=== PATIENT | male | born 1995 | race Caucasian/White ===

== ENCOUNTER 2019-08-27 20:27 | Emergency (ER) | payer OTHER, SELFPAY ==
[2019-08-27 20:28] VITALS: BP 132/84; PULSE 122; RESP 14; TEMP 37; O2SAT 98; BMI 31.1
--- NOTE | 2019-08-27 21:07 | ED.DCSUM_ITS ---
- ER Visit Summary Date of Service: 08/27/19 Chief Complaint: Nausea, vomiting, diarrhea, abdominal pain History of Present Illness: The patient is a 24 M who presents with nausea, vomiting, diarrhea, and abdominal pain that began today. Patient states his abdominal pain is over the left lower quadrant. Patient describes the pain is sharp. Patient states the pain is worse with eating. Patient states nothing is help with the pain. Patient states his pain is been constant throughout the day. Patient admits to some nausea and vomiting today. Patient states she has been unable to keep anything down. Patient denies any hematemesis. Patient also admits to some diarrhea but denies any melena or hematochezia. Patient denies any urinary complaints. Physical Examination: Vital signs are stable. Patient is afebrile. Patient is in no acute distress. Oral mucosa is pink and moist. Neck is supple. Trachea is midline. There is no JVD. Heart was regular rate and rhythm. Lungs are clear and equal bilaterally. Abdomen is soft. Bowel sounds are normal. There is left lower quadrant tenderness. There is no rebound or guarding noted. Cranial nerves II through XII are intact. There are no focal motor or sensory deficits noted. Test Results: CBC and comprehensive metabolic profile were within normal limits. Lipase was normal. Emergency Department Course and Treatment: Patient was given Zofran and IV fluids here. Patient felt better on reevaluation. Patient was advised that this is most likely a viral intestinal infection. Patient was instructed to drink plenty of fluids. Patient was given a prescription for Zofran to take as needed for nausea and vomiting. Patient was instructed to follow-up with his primary care physician in 5 to 7 days. Patient understood and was agreeable with the plan. All questions were answered. Disposition: Discharge home Impression: Nausea vomiting and diarrhea This note was generated with [employer] dictation software. It may contain incorrect words, spelling, and punctuation that were not noted in review of the chart prior to signing ED Disposition - Plan for ED Patient: Disposition: Home or Assisted Living Diagnosis: Nausea vomiting and diarrhea Instructions: DIET, Vomiting or Diarrhea [6yr-Adult], VOMITING AND DIARRHEA, Nonspecific (Adult) Prescriptions: Ondansetron [Zofran Odt] 4 mg PO Q8H PRN PRN #10 tab PRN Reason: Nausea Prescription Printed Referrals: Hollis Cleary MD [Primary Care Provider] - 5-7 Days
[2019-08-27] MEDS: 0.9% Normal Saline 1,000 ML 1000 ML IV (21:23)
[2019-08-27] MEDS: Ondansetron 4 MG/2 ML Vial IV (21:23)
[2019-08-27 21:38] LABS: Absolute Lymphocyte Count 0.58 X10^3/uL (0.83-4.51); Absolute Neutrophil Count 5.8 X10^3/uL (2.0-7.7); Basophil# 0.03 X10^3/uL; Basophil% 0.4 % (0-1); Eosinophil# 0.03 X10^3/uL; Eosinophils% 0.4 % (0-5); Hematocrit 46.2 % (40-54); Hemoglobin 16.2 g/dL (13.0-16.5); Lymphocyte # 0.58 X10^3/ul (4.0); Lymphocyte % 8.3 % (19-41); Mean Corp Hgb Conc 35.1 g/dL (32-36); Mean Corpuscular Hgb 30.2 pg (27.0-32.0); Mean Platelet Vol. 8.6 fl (6.2-12.0); Monocyte% 7.2 % (0-10); NRBC Flagged by Analyzer 0 % (0-5); Neutrophil # 5.83 X10^3/uL (2.7-7.7); Neutrophil % 83.6 % (47-70); POSITIVE DIFFERENTIAL YES; Platelet Count 274 K/mm3 (150-450); RBC Distribution Width CV 12.5 % (11.6-14.6); Red Blood Count 5.37 M/mm3 (4.6-6.2)
[2019-08-27 21:40] LABS: Differential Indicated SCAN CRITERIA MET
[2019-08-27 21:59] LABS: ALB/GLOB Ratio 1.3 RATIO (0.9-2.4); AST(SGOT) 19 U/L (15-37); Alanine Aminotransfer ALT/SGPT 38 U/L (16-61); Albumin, Serum 4.4 g/dL (3.2-5.0); Alkaline Phosphatase 96 U/L (45-117); Anion Gap 7 (5-15); BUN 14 mg/dL (7-18); BUN/Creat Ratio 12.8 RATIO (10-20); Calcium,Total 8.9 mg/dL (8.5-10.1); Chloride 105 mmol/L (98-107); Creatinine, Serum 1.09 mg/dL (0.70-1.30); EST Glomerular Filtration Rate 89 mL/min (>60); Est Glom Filt Rate - Afr Amer 108 mL/min (>60); Estimated Creatinine Clearance 108.83 ml/min; Globulin 3.5 g/dL (2.2-4.2); Glucose 106 mg/dL (74-106); Lipase 79 U/L (73-393); Potassium 3.9 mmol/L (3.5-5.1); Protein, Total 7.9 g/dL (6.4-8.2); Sodium Level 137 mmol/L (136-145)
[2019-08-27 22:03] LABS: Differential Comment SCANNED
[2019-08-27 22:32] VITALS: BP 129/71; PULSE 60; RESP 16
== END 2019-08-27 22:32 | disposition home or self-care (01) ==
PROVIDERS: Emergency Provider Emergency Medicine; Family Provider Family Medicine; PCP Family Medicine
DX: R19.7 Diarrhea, unspecified (principal); R11.2 Nausea with vomiting, unspecified; F41.9 Anxiety disorder, unspecified; Z79.899 Other long term (current) drug therapy
CPT/HCPCS: 80053; 83690; 85025; 96361; 96374; 99283; J7030; J2405

== ENCOUNTER → 2021-05-08 07:45 | Outpatient (CLI) | payer BC, SELFPAY | PROVIDERS: PCP Family Medicine; Referring Provider Physician Assistant; Visit Provider Physician Assistant | DX: Z20.822 Contact with and (suspected) exposure to COVID-19 (principal) | CPT/HCPCS: 87635; U0005; U0003 ==

== ENCOUNTER 2025-04-07 20:31 | Emergency (ER) | payer OTHER, SELFPAY ==
[2025-04-07 20:32] VITALS: BP 153/90; PULSE 78; RESP 18; TEMP 36.4; O2SAT 97; BMI 38.1
--- OUTSIDE RECORDS SUMMARY | 2025-04-07 20:46 | XMS RPT_ITS | CCD ---
Author Organization [facility] Care Team Providers Care Public Address Technician Name Role Phone Emigdio Prince MD Primary Care Provider Emigdio Prince MD Primary Care Provider Lorraine PUBLICATIONS DISTRIBUTION CLERK.Marlen SALAS Unavailable Felix PUBLICATIONS DISTRIBUTION CLERK.Angel SALAS Unavailable [phone] EMIGDIO PRINCE Primary Care Unavailable EMIGDIO PRINCE Attending Unavailable EMIGDIO PRINCE Primary Care Unavailable EMIGDIO PRINCE Primary Care Unavailable EMIGDIO PRINCE Primary Care Unavailable EMIGDIO PRINCE Primary Care Unavailable EMIGDIO PRINCE Attending Unavailable MINDY JONES Attending Unavailable EMIGDIO PRINCE Primary Care Unavailable Marlen Peters APRN.CNP Unavailable Medications Current Medications Medication Drug Class(es) Dates Sig (Normalized) Sig (Original) aluminum chloride 200 mg/ml topical solution (20 sources) Start: 06-28-2023 End: 01-02-2025 aluminum chloride (DRYSOL) 20 % external solution Indications: Excessive sweating Apply to affected area daily at bedtime. As needed 35 mL 11 07/06/2024 Active Start: 03-28-2021 End: 11-23-2022 aluminum chloride (DRYSOL) 2 0 % external solution Indications: Excessive sweating Apply to affected area daily at bedtime. As needed 35 mL 5 05/27/2022 Active Comment on above: Apply to affected ar ea daily at bedtime. As needed amoxicillin 875 mg oral tablet (1 source) Penicillin-class Antibacterial Start: 08-01-20 End: 08-08-20 take 1 tablet by mouth twice daily amoxicillin (AMOXIL) 875 mg tablet Indications: Bacterial sinusitis Take 1 tablet by mouth two times a day for 7 days. 14 tablet 0 08/01/2023 08/08/2023 Active Comment on above: Take 1 tablet by daniela th two times a day for 7 days. azithromycin 250 mg oral tablet (1 source) Macrolide Antimicrobial Start: 09-04-20 End: 09-09-19 azithromycin (ZITHROMAX) 250 mg tablet Indications: Cough, unspecified type , Sore throat , Bronchitis Take 2 tablets by mouth as directed for 1 day, THEN 1 tablet as directed for 4 days. 6 tablet 09/04/2024 09/09/2024 Active benzonatate 100 mg oral capsule (1 source) Non-narcotic Antitussive Start: 12-11-19 take 1 capsule by mouth three times daily as needed for cough benzonatate (TESSALON PERLE) 100 mg capsule Indications: Lower respiratory infection Take 1 capsule by mouth three times a day as needed for cough for up to 12 doses. 12 capsule 12/10/2024 Active Start: 12-10-2024 take 1 capsule by [facility] three times daily as needed for cough benzonatate (TESSALON PERLE) 100 mg capsule Indications: Lower respiratory infection Take 1 capsule by mouth three times a day as needed for cough for up to 12 doses. 12 capsule 12/10/2024 Active citalopram 10 mg oral tablet (20 sources) Serotonin Reuptake Inhibitor Start: 06-28-2023 End: 07-06-2024 take 1 tablet by mouth once daily citalopram hydrobromide (CELEXA) 10 mg tablet Indications: Anxiety Take 1 tablet by mouth once daily. 90 tablet 3 07/06/2024 Active Start: 05-08-2021 End: 05-27-2022 take 1 tablet by mouth once daily citalopram hydrobromide (CELEXA) 10 mg tablet Indications: Anxiety Take 1 tablet by mouth once daily. 90 tablet 3 05/27/2022 Active Comment on above: Take 1 tablet by daniela once daily. TAKE 1 TABLET BY DANIELA TH EVERY DAY doxycycline monohydrate 100 mg oral capsule (1 source) Tetracycline-cla ss Drug Start: 12-10-2024 End: 12-15-2024 take 1 capsule by mouth twice daily doxycycline monohydrate (MONODOX) 100 mg capsule Indications: Lower respiratory infection Take 1 capsule by mouth two times a day for 5 days. 10 capsule 12/10/2024 12/15/2024 Active predniSONE 20 mg oral tablet (3 sources) Start: 11-08-2024 End: 11-13-2024 take 2 tablets by mouth once daily at mealtime predniSONE (DELTASONE) 20 mg tablet Indications: Sore throat Take 2 tablets by mouth once daily for 5 days. Take daily with food. 10 tablet 11/08/2024 11/13/2024 Active Start: 01-13-2024 End: 01-22-2024 predniSONE (DELTASONE) 10 mg tablet Indications: Dermatitis due to plants, including poison veronica, sumac, and oak Take 4 tabs daily for 3 days, then 2 tabs daily for 3 days, then 1 tab daily for 3 days with food. 21 tablet 0 01/13/2024 01/22/2024 Active Completed/Discontinued Medications Medication Drug Class(es) Dates Sig (Normalized) Sig (Original) ciclopirox 7.7 mg/ml topical cream (11 sources) Start: 06-28-2023 End: 07-06-2024 ciclopirox (LOPROX) 0.77 % cream Indications: Tinea cruris Apply to affected area two times a day. 30 g 1 06/28/2023 07/06/2024 Discontinued (Course of therapy completed) Comment on above: Apply to affected ar ea two times a day. terbinafine 250 mg oral tablet (1 source) Allylamine Antifungal Start: 06-04-2023 take 1 tablet by mouth once daily terbinafine HCl (LAMISIL) 250 mg tablet Indications: Jock itch Take 1 tablet by mouth once daily. 14 tablet 0 06/04/2023 Active Comment on above: Take 1 tablet by [facility] once daily. triamcinolone acetonide 0.25 mg/ml topical cream (2 sources) Corticosteroid Start: 12-15-2022 End: 06-04-2023 triamcinolone (KENALOG) 0.025 % cream Indications: Eczema, unspecified type Apply to affected area twice daily. 15 g 2 12/15/2022 06/04/2023 Discontinued (Course of therapy completed) Comment on above: Apply to affected ar ea twice daily. Problems Active Problems Problem Classification Problem Date Documented Da te Episodic/Chronic Allergic reactions (2 sources) Eczema; Translations: [Dermatitis, unspecified] Episodic Anxiety disorders (20 sources) Anxiety; Translations: [Anxiety disorder, unspecified] Onset: 01-01-2017 Chronic Chronic obstructive pulmonary disease and bronchiectasis (1 source) Bronchitis; Translations: [Bronchitis, not specified as acute or chronic] 09-04-2024 Episodic Gastrointestinal hemorrhage (1 source) Rectal hemorrhage; Translations: [Hemorrhage of anus and rectum] Episodic Immunizations and screening for infectious disease (2 sources) Vaccination needed; Translations: [Encounter for immunization] Episodic Mycoses (2 sources) Tinea cruris; Translations: [Tinea cruris] 06-04-2023 Episodic Other connective tissue disease (1 source) Pain of bilateral hands; Translations: [Pain in right hand] 07-06-2024 Episodic Other lower respiratory disease (1 source) Cough; Translations: [Cough, unspecified type] 09-04-2024 Episodic Other lower respiratory disease (1 source) Chest pain on breathing; Translations: [Chest pain on breathing] 09-04-2024 Episodic Other lower respiratory disease (1 source) Lower respiratory tract infection; Translations: [Unspecified acute lower respiratory infection] 12-10-2024 Episodic Other non-traumatic joint disorders (1 source) Bilateral wrist pain; Translations: [Pain in right wrist] 07-06-2024 Episodic Other skin disorders (2 sources) Sebaceous cyst of skin; Translations: [Sebaceous cyst] Episodic Other skin disorders (2 sources) Swelling; Translations: [Localized swelling, mass and lump, unspecified] 11-05-2023 Episodic Other upper respiratory infections (1 source) Bacterial sinusitis; Translations: [Chronic sinusitis, unspecified] 08-01-2023 Chronic Other upper respiratory infections (3 sources) Sore throat symptom; Translations: [Acute pharyngitis, unspecified] 09-04-2024 Episodic Screening and history of mental health and substance abuse codes (1 source) Patient encounter status; Translations: [Encounter for screening for depression] 07-06-2024 Episodic Past or Other Problems Problem Classification Problem Date Documented Da te Episodic/Chronic Other skin disorders (20 sources) Excessive sweating; Translations: [Generalized hyperhidrosis] Onset: 01-01-2017 01-01-2017 Episodic Results Test Name Value Interpretation Reference Range Facil ity CNOVon 12-10-2024 CNOV Office Visit (UCWSTR ) -------- RICKY MERCER ([id number]) 1995 M Date Time Provider Department 12/10/24 9:30 AM JOYCE CHAO WS During your visit today, we recorded the following information about you: Temperature Pulse Respiration Blood pressure 98.2 degrees 97/minute 18/minute 136/82 Weight 119.8 kg Joyce Chao, PUBLICATIONS DISTRIBUTION CLERK.QUALITY CONTROL REPRESENTATIVE 12/10/2024 9:45 AM Signed This note was created using NoteWriter. Subjective Ricky Mercer is a 29 year old male. HPI Patient complains of 6 days of sore throat, cough, and feeling lightheaded. He denies any recent fevers. Feels as though symptoms are worsening. Review of Systems As above Objective BP 136/82 Pulse 97 Temp 36.8 ?C (98.2 ?F) Resp 18 Wt 119.8 kg (264 lb 1.8 oz) SpO2 96% BMI 35.82 kg/m? Physical Exam Vitals and nursing note reviewed. Constitutional: General: He is not in acute distress. Appearance: Normal appearance. He is not ill-appearing. HENT: Head: Normocephalic. Mouth/Throat: Mouth: Mucous membranes are moist. Eyes: Conjunctiva/sclera: Conjunctivae normal. Cardiovascular: Rate and Rhythm: Normal rate and regular rhythm. Pulmonary: Effort: Pulmonary effort is normal. Breath sounds: Normal breath sounds. Musculoskeletal: General: Normal range of motion. Cervical back: Normal range of motion. Skin: General: Skin is warm and dry. Neurological: General: No focal deficit present. Mental Status: He is alert. Psychiatric: Mood and Affect: Mood normal. Behavior: Behavior normal. Assessment and Plan ASSESSMENT/PLAN: 1. Lower respiratory infection - ICD9: 519.8, ICD10: J22 Discussed viral versus bacterial etiology with patient. As patient notes 1 week of worsening cough there is concern for possible lower respiratory tract infection and patient will be treated accordingly. Did consider viral testing however as he has 6 days of symptoms there is no specific treatment indicated at this time and again with worsening symptoms patient opted to try a round of antibiotics. No chest x-ray available today - DOXYCYCLINE MONOHYDRATE 100 MG CAPSULE - BENZONATATE 100 MG CAPSULE Joyce Chao APRN.CNP Allergies As of Date: 12/10/2024 (No Known Allergies) Date Reviewed: 12/10/2024 Reviewed by: Joyce Chao APRN.QUALITY CONTROL REPRESENTATIVE - Fully Assessed Reason for Visit: Cough [28] Cmt: Chest congestion, ST, runny nose x6 days Primary Visit Diagnosis:Lower respiratory infection [J22] Order(s):doxycycline monohydrate (MONODOX) 100 mg capsuleTake 1 capsule by mouth two times a day for 5 days.Disp: 10 capsuleRfl: 0 benzonatate (TESSALON PERLE) 100 mg capsuleTake 1 capsule by mouth three times a day as needed for cough for up to 12 doses.Disp: 12 capsuleRfl: 0 Prescriptions as of 12/10/2024 - doxycycline monohydrate (MONODOX) 100 mg capsule Take 1 capsule by mouth two times a day for 5 days. - benzonatate (TESSALON PERLE) 100 mg capsule Take 1 capsule by mouth three times a day as needed for cough for up to 12 doses. - aluminum chloride (DRYSOL) 20 % external solution Apply to affected area daily at bedtime. As needed - citalopram hydrobromide (CELEXA) 10 mg tablet Take 1 tablet by mouth once daily. Problem List As Of Date 12/10/2024 Noted Resolved Excessive sweating [R61] 01/01/2017 Anxiety [F41.9] 01/01/2017 Prescriptions ordered this encounter Disp Refills Start End DOXYCYCLINE MONOHYDRATE 100 MG CAPSU* 10 c* 0 12/10/2024 12/15/2024 Route: ORAL Sig: Take 1 capsule by mouth two times a day for 5 days. BENZONATATE 100 MG CAPSULE 12 c* 0 12/10/2024 Route: ORAL Sig: Take 1 capsule by mouth three times a day as needed for cough for up to 12 doses. Encounter Status:Closed by JOYCE CHAO on 12/10/24 Normal [facility] CNOVon 11-08-2024 CNOV Office Visit (UCWSTR ) -------- RUSLANRICKY Mustapha ([id number]) 1995 M Date Time Provider Department 11/08/24 7:30 AM PRUDENCIO MONCADA [facility] During your visit today, we recorded the following information about you: Temperature Pulse Respiration Blood pressure 97.2 degrees 79/minute 18/minute 133/82 Weight 120.9 kg Prudencio Moncada APRN.QUALITY CONTROL REPRESENTATIVE 11/08/2024 8:00 AM Signed Subjective HPI HPI Ricky Luciano Ruslan is a 29 year old male who presents today for CC of st, loss of voice, fatigue, h/a. This started 2 days ago. Has tried otc medication for relief. Symptoms are worsened by nothing. Risk factors sick exposures at home. nonsmoker. .Patient presents with: Sore Throat: Fatigue x2 days, MARK, bodyaches PAST MEDICAL HISTORY Diagnosis Date Asthma Generalized anxiety disorder PAST SURGICAL HISTORY Procedure Laterality Date LIPOMA (SMALL) 12/10/2023 left side of head PAST SURGICAL HISTORY OF Right 2012, 2015 Right knee surgery ALLERGIES Patient has no known allergies. MEDICATIONS aluminum chloride (DRYSOL) 20 % external solution Apply to affected area daily at bedtime. As needed citalopram hydrobromide (CELEXA) 10 mg tablet Take 1 tablet by mouth once daily. predniSONE (DELTASONE) 20 mg tablet Take 2 tablets by mouth once daily for 5 days. Take daily with food. FAMILY HISTORY Problem Relation Age of Onset other (Anxiety) Mother other (Anxiety) Sister other (Anxiety) Brother Heart Maternal Grandmother Diabetes Maternal Grandfather Social History Tobacco Use Smoking status: Never Smokeless tobacco: Never Vaping Use Vaping status: Never Used Substance Use Topics Alcohol use: No Drug use: No Review of Systems Constitutional: Positive for chills and malaise/fatigue. Negative for fever. HENT: Positive for congestion and sore throat. Negative for ear pain and nosebleeds. Respiratory: Negative for cough, shortness of breath and wheezing. Musculoskeletal: Negative for neck pain. Skin: Negative for itching and rash. Neurological: Positive for headaches. Objective Blood pressure 133/82, pulse 79, temperature 36.2 ?C (97.2 ?F), resp. rate 18, weight 120.9 kg (266 lb 8.6 oz), SpO2 96%. Physical Exam Constitutional: General: He is not in acute distress. Appearance: He is not toxic-appearing or diaphoretic. HENT: Head: Normocephalic and atraumatic. Right Ear: Hearing, tympanic membrane, ear canal and external ear normal. Left Ear: Hearing, tympanic membrane, ear canal and external ear normal. Nose: Nose normal. Mouth/Throat: Pharynx: Uvula midline. No pharyngeal swelling, oropharyngeal exudate, posterior oropharyngeal erythema or uvula swelling. Eyes: General: Lids are normal. No scleral icterus. Right eye: No discharge. Left eye: No discharge. Conjunctiva/sclera: Conjunctivae normal. Pupils: Pupils are equal, round, and reactive to light. Neck: Trachea: Trachea normal. Cardiovascular: Rate and Rhythm: Normal rate and regular rhythm. Heart sounds: Normal heart sounds. Pulmonary: Effort: Pulmonary effort is normal. Breath sounds: Normal breath sounds. Musculoskeletal: Cervical back: Normal range of motion and neck supple. Lymphadenopathy: Cervical: No cervical adenopathy. Right cervical: No superficial cervical adenopathy. Left cervical: No superficial cervical adenopathy. Skin: Findings: No rash. Neurological: Mental Status: He is alert and oriented to person, place, and time. ASSESSMENT/PLAN: 1. Sore throat - ICD9: 462, ICD10: J02.9 (primary diagnosis) Negative, viral - STREP A MOLECULAR (POC) - PREDNISONE 20 MG TABLET 2. URI, acute - ICD9: 465.9, ICD10: J06.9 - Discussed viral etiology and rationale for treatment. - Symptomatic treatment with prn analgesia - Supportive care with fluids and rest - Follow up in 3-5 days if symptoms persist or sooner if worsening of symptoms States will not likely want paxlovid if positive for covid. - COVID AND INFLUENZA A/B AND RSV PCR, ROUTINE Prudencio Antwan, PUBLICATIONS DISTRIBUTION CLERK.QUALITY CONTROL REPRESENTATIVE Allergies As of Date: 11/08/2024 (No Known Allergies) Date Reviewed: 11/08/2024 Reviewed by: Angelic Kasper MA - Fully Assessed Reason for Visit: Sore Throat [200] Cmt: Fatigue x2 days, MARK, bodyaches Primary Visit Diagnosis:Sore throat [J02.9] Other Visit Diagnosis:URI, acute [J06.9] Order(s):STREP A MOLECULAR (POC) [[id number]] Order #: [id number]. #:[id number] predniSONE (DELTASONE) 20 mg tabletTake 2 tablets by mouth once daily for 5 days. Take daily with food.Disp: 10 tabletRfl: 0 COVID AND INFLUENZA A/B AND RSV PCR, ROUTINE [SQCVFLRS] Order #: [id number]. #:[id number] Prescriptions as of 11/08/2024 - predniSONE (DELTASONE) 20 mg tablet Take 2 tablets by mouth once daily for 5 days. Take daily with food. - aluminum chloride (DRYSOL) 20 % external solution Apply to affected area daily at (more content not included)... Normal [facility] STREP A MOLECULAR (POC)on Procedural Control Valid [facility] Strep A (POCT) Negative Negative [facility] CNOVon 09-04-2024 CNOV Office Visit (FAMPWS ) -------- RICKY MERCER ([id number]) 1995 M Date Time Provider Department 09/04/24 5:40 PM EMIGDIO PRINCE [facility] During your visit today, we recorded the following information about you: Pulse Respiration Blood pressure Weight 84/minute 16/minute 122/82 119.6 kg Emigdio Prince MD 09/04/2024 7:44 PM Signed Chief Complaint Patient presents with: Cough HPI Ricky Mercer is a 29 year old male who presents here today for an acute visit. Pt here today for ongoing issues with a cough and slight sore throat. Pt reports that two nights ago he had two bouts of vomiting and this has since cleared up. Denies no other GI symptoms prior to this other than some slight upset stomach prior to vomiting. No one else at home sick with GI symptoms. Since vomiting two nights ago he's started having centralized chest pain with coughing or taking a deep breath. Pain described as a dull and stabbing type pain. Feels he can't take a deep breath and at times can't catch his breath. Denies any dysphagia or pain with swallowing. Reports daughter and were both sick recently. Daughter is in daycare and works in a School. Past medical history, appointments, medications, allergies reviewed. Previous Medical History PAST MEDICAL HISTORY Diagnosis Date Asthma Generalized anxiety disorder Previous Surgical History PAST SURGICAL HISTORY Procedure Laterality Date LIPOMA (SMALL) 12/10/2023 left side of head PAST SURGICAL HISTORY OF Right 2012, 2014 Right knee surgery Family History FAMILY HISTORY Problem Relation Age of Onset other (Anxiety) Mother other (Anxiety) Sister other (Anxiety) Brother Heart Maternal Grandmother Diabetes Maternal Grandfather Patient Allergies ALLERGIES No Known Allergies Current Medications Current Outpatient Medications on File Prior to Visit Medication Sig aluminum chloride (DRYSOL) 20 % external solution Apply to affected area daily at bedtime. As needed citalopram hydrobromide (CELEXA) 10 mg tablet Take 1 tablet by mouth once daily. No current facility-administered medications on file prior to visit. Social History Social History Tobacco Use Smoking status: Never Smokeless tobacco: Never Vaping Use Vaping status: Never Used Substance Use Topics Alcohol use: No Drug use: No EXAM: BP 122/82 (BP Site: Left Arm, BP Position: Sitting, BP Cuff Size: Large Adult) Pulse 84 Resp 16 Wt 119.6 kg (263 lb 10.7 oz) BMI 35.76 kg/m? General Appearance: Well appearing, alert, in no acute distress, well-hydrated, well nourished. and Obese. Oropharynx: Lips, mucosa, and tongue normal, teeth and gums normal. Oropharynx slight erythema noted on exam. Lungs: Lungs clear to auscultation. No wheezing, rhonchi, rales.. Heart: RRR without murmur, gallop, or rubs. No ectopy. Health Maintenance List Influenza Vaccine(1) due on 03/05/2025 Hepatitis C Screening due on 07/06/2025 HIV Screening due on 07/06/2025 Covid-19 Vaccine( - season) due on 07/06/2025 Depression Screening due on 07/06/2025 DTaP,Tdap,Td Vaccine(8 - Td or Tdap) due on 03/28/2031 Hepatitis B Vaccine Completed HPV Vaccine Addressed Data reviewed None ASSESSMENT/PLAN: 1. Cough, unspecified type - ICD9: 786.2, ICD10: R05.9 (primary diagnosis) - Cont OTC treatment - Start Zpak 2. Sore throat - ICD9: 462, ICD10: J02.9 - Start Zpak 3. Chest pain on breathing - ICD9: 786.52, ICD10: R07.1 - Bronchitis 4. Bronchitis - ICD9: 490, ICD10: J40 - Start Zpak Start Zpak, update office if not improving. I agree with the Chief Complaint, ROS, and Past Histories independently gathered by the clinical sales support engineer and the remaining scribed note accurately describes my personal service to the patient. Medical Decision Making: Problems: Low: Acute, uncomplicated illness or injury Risk: Moderate: Drug management Medical Decision Making Level: 3 - Low Emigdio Prince MD The documentation for this note was completed by Charu Chang MA acting as scribe for Emigdio Prince MD. September 04, 2024 5:41 PM. ZOHRA Jerez Rilee, MA 09/04/2024 5:42 PM Signed Update office via Frilp if not improving. Allergies As of Date: 09/04/2024 (No Known Allergies) Date Reviewed: 09/04/2024 Reviewed by: Charu Chang MA - Fully Assessed Reason for Visit: Cough [28] Primary Visit Diagnosis:Cough, unspecified type [R05.9] Other Visit Diagnoses:Sore throat [J02.9] Chest pain on breathing [R07.1] Bronchitis [J40] Order(s):azithromycin (ZITHROMAX) 250 mg tabletTake 2 tablets by mouth as directed for 1 day, THEN 1 tablet as directed for 4 days.Disp: 6 tabletRfl: 0 Prescriptions as of 09/04/2024 - azithromycin (ZITHROMAX) 250 mg tablet Take 2 tablets by mouth as directed for 1 day, THEN 1 tablet as directed for 4 days. - alu (more content not included)... Normal [facility] CNOVon 07-06-2024 CNOV Office Visit (FAMPWS ) -------- RUSLANRICKY Luciano ([id number]) 1995 M Date Time Provider Department 07/06/24 3:00 [facility] your visit today, we recorded the following information about you: Pulse Respiration Blood pressure Weight 84/minute 16/minute 126/74 121.9 kg Height 1.829 m Emigdio Prince MD 07/06/2024 4:00 PM Signed Chief Complaint Patient presents with: Physical HPI Ricky Mercer is a 29 year old male who presents here today for physical. 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 Declined flu, covid vaccines, Hep C and HIV screening. No bowel, Gi, or urinary issues. No chest pains, dizziness, or SOB. NEAL/Depression: Taking Celexa 10 mg daily. Feels this is working well for him. No problems or side effects form the Celexa. No SI/HI. Sleeps well at night. No snoring or any sx of Sleep apnea. Uses Drysol solution at bedtime prn for excessive sweating. Tries to watch diet, fruits and vegetables with meals. Watching carbs. Does not drink pop. He now drinks sweet tea but needs to switch to unsweetened. Low to moderate exercise, chasing toddler. No regular exercise regimen. He did work out more before the baby but now has trouble finding the time. C/o Bishop hand and wrist pain that has been an issues off and on for several years but over the last few months has become more consistent. No swelling of the hands or wrist. Pain is dull ache when not using and then sharp shooting with use. He does some stretches which helps and if pain is really bad will use ice occ. Has not taken anything for pain. 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 He has been in the workshop a little more but nothing to excessive. Does not bother him at night. Right hand dominant. Past medical history, appointments, medications, allergies reviewed. Previous Medical History PAST MEDICAL HISTORY Diagnosis Date Asthma Generalized anxiety disorder Previous Surgical History PAST SURGICAL HISTORY Procedure Laterality Date LIPOMA (SMALL) 12/10/2023 left side of head PAST SURGICAL HISTORY OF Right 2012, 2014 Right knee surgery Family History FAMILY HISTORY Problem Relation Age of Onset other (Anxiety) Mother other (Anxiety) Sister other (Anxiety) Brother Heart Maternal Grandmother Diabetes Maternal Grandfather Patient Allergies ALLERGIES No Known Allergies Current Medications Current Outpatient Medications on File Prior to Visit Medication Sig aluminum chloride (DRYSOL) 20 % external solution Apply to affected area daily at bedtime. As needed citalopram hydrobromide (CELEXA) 10 mg tablet Take 1 tablet by mouth once daily. ciclopirox (LOPROX) 0.77 % cream Apply to affected area two times a day. No current facility-administered medications on file prior to visit. Social History Social History Tobacco Use Smoking status: Never Smokeless tobacco: Never Vaping Use Vaping status: Never Used Substance Use Topics Alcohol use: No Drug use: No EXAM: BP 126/74 Pulse 84 Resp 16 Ht 182.9 cm (6') Wt 121.9 kg (268 lb 11.9 oz) BMI 36.45 kg/m? General Appearance: Well appearing, alert, in no acute distress, well-hydrated, well nourished. and Overweight. Lungs: Lungs clear to auscultation. No wheezing, rhonchi, rales.. Heart: RRR without murmur, gallop, or rubs. No ectopy. Abdomen: Normal abdominal exam, Abdomen soft, non-tender. Bowel sounds normal. No masses, organomegaly. Hands: Normal exam, no swelling or tenderness; reports pain across dorsum of hands Health Maintenance List Depression Screening Never done Influenza Vaccine(1) due on 03/05/2025 Hepatitis C Screening due on 07/06/2025 HIV Screening due on 07/06/2025 Covid-19 Vaccine( season) due on 07/06/2025 DTaP,Tdap,Td Vaccine(8 - Td or Tdap) due on 03/28/2031 Hepatitis B Vaccine Completed HPV Vaccine Addressed Data reviewed None ASSESSMENT/PLAN: 1. Wellness examination - ICD9: V70.0, ICD10: Z00.00 (primary diagnosis) - Counseled on healthy diet and regular exercise - Discussed need for and benefit of weight loss. BMI 36.45 kg/(m2) - Follow up for annual exam in one year 2. Excessive sweating - ICD9: 780.8, ICD10: R61 Stable Continue current medications. - DRYSOL DAB-O-MATIC 20 % TOPICAL SOLUTION 3. Anxiety - ICD9: 300.00, ICD10: F41.9 Stable Continue current medications. - CITALOPRAM 10 MG TABLET 4. Screening for depression - ICD9: V79.0, ICD10: Z13.31 - DEPRESSION SCREENING 5. Pain in both hands - ICD9: 729.5, ICD10: M79.641, M79.642 Over use Continue with stretches May use heat 6. Pain in both wrists - ICD9: 719.43, ICD10: M25.531, M25.532 Over use Continue with stretches May use heat Follow up in 1 year or sooner if needed. I agree with (more content not included)... Normal [facility] CNOVon 01-13-2024 CNOV Office Visit (UCWSTR ) -------- RICKY MERCER ([id number]) 1995 M Date Time Provider Department 01/13/24 7:45 AM KAY DAVENPORT [facility] During your visit today, we recorded the following information about you: Temperature Pulse Respiration Blood pressure 97.6 degrees 78/minute 18/minute 136/77 Weight 122 kg Kay Davenport APRN.QUALITY CONTROL REPRESENTATIVE 01/13/2024 8:06 AM Signed Subjective Rash Pertinent negatives include no fever. Ricky Mercer is a 28 year old male who presents with a rash on bilateral arms. Has been present for 10 days. He has been using OTC hydrocortisone cream without relief. Denies fever or chills. Rash it itchy and he is getting new areas of rash. He denies pain. Review of Systems Constitutional: Negative for chills and fever. Respiratory: Negative. Cardiovascular: Negative. Musculoskeletal: Negative for myalgias. Skin: Positive for itching and rash. BP 136/77 Pulse 78 Temp 36.4 ?C (97.6 ?F) Resp 18 Wt 122 kg (268 lb 15.4 oz) SpO2 97% BMI 38.59 kg/m? PAST MEDICAL HISTORY Diagnosis Date Asthma Generalized anxiety disorder PAST SURGICAL HISTORY Procedure Laterality Date LIPOMA (SMALL) 12/10/2023 left side of head PAST SURGICAL HISTORY OF Right 2012, 2014 Right knee surgery ALLERGIES Patient has no known allergies. MEDICATIONS predniSONE (DELTASONE) 10 mg tablet Take 4 tabs daily for 3 days, then 2 tabs daily for 3 days, then 1 tab daily for 3 days with food. ciclopirox (LOPROX) 0.77 % cream Apply to affected area two times a day. citalopram hydrobromide (CELEXA) 10 mg tablet Take 1 tablet by mouth once daily. aluminum chloride (DRYSOL) 20 % external solution Apply to affected area daily at bedtime. As needed FAMILY HISTORY Problem Relation Age of Onset other (Anxiety) Mother other (Anxiety) Sister other (Anxiety) Brother Heart Maternal Grandmother Diabetes Maternal Grandfather Social History Tobacco Use Smoking status: Never Smokeless tobacco: Never Vaping Use Vaping Use: Never used Substance Use Topics Alcohol use: No Drug use: No Objective Physical Exam Vitals and nursing note reviewed. Constitutional: Appearance: Normal appearance. Cardiovascular: Rate and Rhythm: Normal rate and regular rhythm. Heart sounds: Normal heart sounds. Pulmonary: Effort: Pulmonary effort is normal. No respiratory distress. Breath sounds: Normal breath sounds. No wheezing or rales. Skin: General: Skin is warm and dry. Findings: Erythema and rash present. Neurological: Mental Status: He is alert. ASSESSMENT/PLAN: 1. Dermatitis due to plants, including poison veronica, sumac, and oak - ICD9: 692.6, ICD10: L25.5 - Oral Steriod tx -Prednisone taper - discussed skin care of rash - follow up if symptoms persist or worsen. - PREDNISONE 10 MG TABLET - Follow-up with your PCP in 3-5 days if symptoms have not improved or sooner if symptoms worsen - Discussed red flags and need for immediate medical evaluation if any occur. - Discussed supportive care treatment with fluids, rest and analgesia. - Discussed expected course of illness FRANCI Boo Kathy, APRN.CNP 01/13/2024 8:06 AM Signed ASSESSMENT/PLAN: 1. Dermatitis due to plants, including poison veronica, sumac, and oak - ICD9: 692.6, ICD10: L25.5 - Oral Steriod tx -Prednisone taper - discussed skin care of rash - follow up if symptoms persist or worsen. - PREDNISONE 10 MG TABLET - Follow-up with your PCP in 3-5 days if symptoms have not improved or sooner if symptoms worsen - Discussed red flags and need for immediate medical evaluation if any occur. - Discussed supportive care treatment with fluids, rest and analgesia. - Discussed expected course of illness Kay Davenport APRN.CNP [facility] PATIENT INFO POISON VERONICA INTRODUCTION When the skin comes in direct contact with an irritating or allergy-causing substance, contact dermatitis can develop. Exposure to poison veronica, poison oak, and poison sumac cause more cases of allergic contact dermatitis than all other plant families combined. People of all ethnicities and skin types are at risk for developing poison veronica dermatitis. The severity of the reaction tends to decrease with age, especially in people who have had mild reactions in the past. People in occupations such as firefighting, forestry, and farming are at a higher risk of poison veronica dermatitis because of repeated exposure to toxic plants. POISON VERONICA CAUSES Poison veronica, poison oak, and poison sumac plants all contain a compound called urushiol, which is a light, colorless oil that is found on the fruit, leaves, stem, root, and sap of the plant. When urushiol is exposed to air, it turns brown and the plant leaves develop small black spots. There are several ways that you can be exposed to urushiol: By touching the sap o (more content not included)... Normal [facility] CNOVon 01-03-2024 CNOV Office Visit (GENSWS ) -------- RUSLANRICKY ([id number]) 1995 M Date Time Provider Department 01/03/24 2:30 PM MINDY JONES During your visit today, we recorded the following information about you: Temperature Pulse Blood pressure Weight 97.1 degrees 91/minute 128/88 120.7 kg Height 1.778 m Mindy Jones MD 01/04/2024 7:48 AM Signed FOLLOW UP VISIT NAME: Ricky Mercer CLINIC NO.: [id number] DATE OF SERVICE: 01/03/2024 : 1995 REFERRING PHYSICIAN: Emigdio Prince MD Ricky is status post excision of posterior left ear lesion done on 12/10/2023 Pathology reveals: FINAL DIAGNOSIS Soft tissue, posterior left ear, excision: - Lipoma. Patient denies any problems VITALS: Blood pressure 128/88, pulse 91, temperature 36.2 ?C (97.1 ?F), height 177.8 cm (5' 10), weight 120.7 kg (266 lb), SpO2 97%. On examination, wound is well healed with no evidence of infection Assessment IMPRESSION: status post excision of lipoma PLAN: Patient is instructed to make an appointment to return to clinic if any worsening signs/symptoms. Patient will return to his PCP for medical care. Patient acknowledges above. Diagnoses: (Z98.890) Status post skin and subcutaneous tissue surgery (primary encounter diagnosis) I have confirmed and edited as necessary, the PFSH and ROS obtained by others. ___ Mindy Jones MD Allergies As of Date: 01/03/2024 (No Known Allergies) Date Reviewed: 01/03/2024 Reviewed by: Logan Washington LPN - Fully Assessed Reason for Visit: Follow Up [171] Cmt: Scalp lesion Primary Visit Diagnosis:Status post skin and subcutaneous tissue surgery [Z98.890] Prescriptions as of 01/04/2024 - ciclopirox (LOPROX) 0.77 % cream Apply to affected area two times a day. - citalopram hydrobromide (CELEXA) 10 mg tablet Take 1 tablet by mouth once daily. - aluminum chloride (DRYSOL) 20 % external solution Apply to affected area daily at bedtime. As needed Meds Comments as of 01/09/2020: Pharmacy - [facility] Problem List As Of Date 01/03/2024 Noted Resolved Excessive sweating [R61] 01/01/2017 Anxiety [F41.9] 01/01/2017 Disposition: Return if symptoms worsen or fail to improve. Follow-up and Disposition History for Encounter Date Provider Department [id number] Encounter Status:Closed by MINDY JONES on 01/04/24 Normal [facility] COVID 19, [facility](RT COLLECT )on 05-09-2021 SARS-CoV-2 (COVID-19) RNA [place]+probe Ql (Unsp spec) Not detected Normal Not Detect [facility] Comment on above: Order Comment: Reason for Exam: exposed Result Comment: Norm al Reference Range: Not Detected Method:(RT-PCR) real-time reverse transcriptase PCR Luminex LetsCram Instrument *The Food and Drug Administration (FDA) has issued an Emergency Use Authorization (EAU) for the LetsCram SARS-CoV-2 Assay for the rapid detection of the virus that causes COVID-19. This test has been validated, but the FDAs independent review of this validation is pending. *Negative results do not preclude infection and should not be used as the sole basis for treatment or patient management. Optimum specimen types and timing for peak viral levels during infections caused by SARS-CoV-2 have not been determined. Collection of multiple specimens from the same patient may be necessary to detect the virus. The possibility of a false negative result should be considered if the patient has clinical presentation or has had recent exposure. Performed By: #### L [phone] #### [facility] [address] [place], [place], [address] Urgent Care Visit Reporton 0 05-08-2021 Urgent Care Visit Report [facility] [address] [place] [address] OFFICE VISIT Date of Service: 05/08/21 MR#: [id number] Acct: [id number] Name: RICKY MERCER Rep #: [id number] : 1995 Provider: ROBERTO juárez Age/Sex: 26/M Location: [facility] Status: Signed Intake Vital Signs 05/08/21 17:05 BP 128/78 H Blood Pressure Location Lt brachial Position Sitting Respiration 18 Pulse 86 Pulse Source Monitor Temp 97.4 F L Temp Source Temporal Pulse Oximetry (%) 98 Oxygen Delivery Method room air Intake Visit Reasons: COVID TEST/EXPOSED Allergies No Known Allergies Allergy (Verified 08/27/19 20:31) PFSH Social History Smoking Status: Never smoker HPI HPI Details: RICKY MERCER, is a 26 M who presents to the office today for covid19 screening due to exposed to someone tat her work who was diagnosed with COVID19. and patient both asymptomatic. ROS Const Constitutional: No other (as above) Exam Const General: cooperative, healthy appearing, comfortable and no acute distress Nutritional Appearance: average body habitus and well nourished Orientation: alert, awake and oriented x3 HENMT Head: normal to inspection Ears: hearing grossly normal bilaterally and external ears normal Nose: external nose normal Face and sinus: normal facial exam, sinuses nontender and face symmetric Mouth: oral mucosae normal, lip normal, tongue normal and oropharynx normal Teeth and gingiva: dentition normal and gingiva normal Throat: posterior oropharynx normal, tonsils normal, uvula midline and no postnasal drainage Eyes General: appearance normal, both eyes and all related structures Neck Neck: normal visual inspection, full ROM, no lymphadenopathy, no meningeal signs and supple Neck mass: No Thyroid: thyroid normal Lymphatic: no lymphadenopathy noted Chest Chest palpation inspection: normal inspection of the chest Resp Effort Inspection: normal respiratory effort, able to speak in complete sentences, symmetric chest movement and no cough Auscultation: Bilateral: Clear to Auscultation Cardio Palpation: normal PMI Rate: regular rate Rhythm: regular rhythm Heart Sounds: S1 normal, S2 normal, no gallops, no murmurs and no rubs Pulses: radial pulses present GI Inspection: normal to inspection Palpation: soft and no hepatosplenomegaly Skin General: no rashes or lesions noted Neuro General: patient alert, patient awake, patient oriented x3 and gait normal Cognition: normal cognition Speech: speech normal Gait: normal gait Motor: muscle tone normal throughout Sensory Exam: no sensory deficits noted Extrem General: normal to inspection Psych Appearance: grossly normal Mental Status: mental status grossly normal Mood: congruent mood Affect: normal affect Speech and Movement: speech and movement normal Attitude: cooperative Thought Process: normal Thought Content: normal Judgment: judgment good Coding Level of Care Code Off vis,new,level 3 Diagnoses Exposure to COVID-19 virus Z20.822 Assessment and Plan Assessment and Plan (1) Exposure to COVID-19 virus: Status: Acute Orders: Orders: COVID 19, PCR [facility](RT COLLECT) Today Plan - Albert MEJIA PA: Nasopharyngeal swab obtained today for send out for COVID-19 screening. Patient aware we will contact them when results are available. Follow-up with the now clinic on an as-needed basis only. Patient states acknowledging understanding all the above. This note was generated with [employer] dictation software. It may contain incorrect words, spelling, and punctuation that were not noted in checking the note before signing. 05/08/21 1852 Date Albert MEJIA Cosigner Signature: Date (if applicable) CC: Normal [facility] Vital Signs Date Time Vital Sign Value Performing Clinician Scottie rogers 12-10-2024 09:24-0400 Body mass index (BMI) [Ratio] 35.82 kg/m2 Joyce Chao APRN.CNP Work Phone: [facility] 12-10-2024 09:24-0400 Body temperature 98.2 [degF] Joyce Moomaw PUBLICATIONS DISTRIBUTION CLERK.QUALITY CONTROL REPRESENTATIVE Work Phone: [facility] 12-10-2024 09:24-0400 Body weight 119.8 kg Joyce Moomaw PUBLICATIONS DISTRIBUTION CLERK.QUALITY CONTROL REPRESENTATIVE Work Phone: [facility] 12-10-2024 09:24-0400 Diastolic blood pressure 82 mm[Hg] Joyce Moomaw PUBLICATIONS DISTRIBUTION CLERK.QUALITY CONTROL REPRESENTATIVE Work Phone: [facility] 12-10-2024 09:24-0400 Heart rate 97 /min Joyce Moomaw PUBLICATIONS DISTRIBUTION CLERK.QUALITY CONTROL REPRESENTATIVE Work Phone: [facility] 12-10-2024 09:24-0400 Respiratory rate 18 /min Joyce Moomaw PUBLICATIONS DISTRIBUTION CLERK.QUALITY CONTROL REPRESENTATIVE Work Phone: [facility] 12-10-2024 09:24-0400 SaO2% (BldA) [Mass fraction] 96 % Joyce Moomaw PUBLICATIONS DISTRIBUTION CLERK.QUALITY CONTROL REPRESENTATIVE Work Phone: [facility] 12-10-2024 09:24-0400 Systolic blood pressure 136 mm[Hg] Joyce Moomaw PUBLICATIONS DISTRIBUTION CLERK.QUALITY CONTROL REPRESENTATIVE Work Phone: [facility] 11-08-2024 07:28-0500 Body mass index (BMI) [Ratio] 36.15 kg/m2 Prudencio Moncada PUBLICATIONS DISTRIBUTION CLERK.QUALITY CONTROL REPRESENTATIVE Work Phone: [facility] 11-08-2024 07:28-0500 Body temperature 97.2 [degF] Prudencio Moncada PUBLICATIONS DISTRIBUTION CLERK.QUALITY CONTROL REPRESENTATIVE Work Phone: [facility] 11-08-2024 07:28-0500 Body weight 120.9 kg Prudencio Moncada PUBLICATIONS DISTRIBUTION CLERK.QUALITY CONTROL REPRESENTATIVE Work Phone: [facility] 11-08-2024 07:28-0500 Diastolic blood pressure 82 mm[Hg] Prudencio Moncada PUBLICATIONS DISTRIBUTION CLERK.QUALITY CONTROL REPRESENTATIVE Work Phone: [facility] 11-08-2024 07:28-0500 Heart rate 79 /min Prudencio Moncada PUBLICATIONS DISTRIBUTION CLERK.QUALITY CONTROL REPRESENTATIVE Work Phone: [facility] 11-08-2024 07:28-0500 Respiratory rate 18 /min Prudencio Moncada PUBLICATIONS DISTRIBUTION CLERK.QUALITY CONTROL REPRESENTATIVE Work Phone: [facility] 11-08-2024 07:28-0500 SaO2% (BldA) [Mass fraction] 96 % Prudencio Moncada PUBLICATIONS DISTRIBUTION CLERK.QUALITY CONTROL REPRESENTATIVE Work Phone: [facility] 11-08-2024 07:28-0500 Systolic blood pressure 133 mm[Hg] Prudencio Moncada PUBLICATIONS DISTRIBUTION CLERK.QUALITY CONTROL REPRESENTATIVE Work Phone: [facility] 09-04-2024 17:32-0500 Body mass index (BMI) [Ratio] 35.76 kg/m2 Emigdio Prince MD Work Phone: [facility] 09-04-2024 17:32-0500 Body weight 119.6 kg Emigdio Prince MD Work Phone: [facility] 09-04-2024 17:32-0500 Diastolic blood pressure 82 mm[Hg] Emigdio Prince MD Work Phone: [facility] 09-04-2024 17:32-0500 Heart rate 84 /min Emigdio Prince MD Work Phone: [facility] 09-04-2024 17:32-0500 Respiratory rate 16 /min Emigdio Prince MD Work Phone: [facility] 09-04-2024 17:32-0500 Systolic blood pressure 122 mm[Hg] Emigdio Prince MD Work Phone: [facility] 07-06-2024 14:48-0400 Body height 182.9 cm Emigdio Prince MD Work Phone: [facility] 07-06-2024 14:48-0400 Body mass index (BMI) [Ratio] 36.45 kg/m2 Emigdio Prince MD Work Phone: [facility] 07-06-2024 14:48-0400 Body weight 121.9 kg Emigdio Prince MD Work Phone: [facility] 07-06-2024 14:48-0400 Diastolic blood pressure 74 mm[Hg] Emigdio Prince MD Work Phone: [facility] 07-06-2024 14:48-0400 Heart rate 84 /min Emigdio Prince MD Work Phone: [facility] 07-06-2024 14:48-0400 Respiratory rate 16 /min Emigdio Prince MD Work Phone: [facility] 07-06-2024 14:48-0400 Systolic blood pressure 126 mm[Hg] Emigdio Prince MD Work Phone: [facility] 01-13-2024 07:49-0400 Body mass index (BMI) [Ratio] 38.59 kg/m2 Kay Praisler-Wood PUBLICATIONS DISTRIBUTION CLERK.QUALITY CONTROL REPRESENTATIVE Work Phone: [facility] 01-13-2024 07:49-0400 Body temperature 97.59 [degF] Kay Praisler-Wood PUBLICATIONS DISTRIBUTION CLERK.QUALITY CONTROL REPRESENTATIVE Work Phone: [facility] 01-13-2024 07:49-0400 Body weight 122 kg Kay Praisler-Wood PUBLICATIONS DISTRIBUTION CLERK.QUALITY CONTROL REPRESENTATIVE Work Phone: [facility] 01-13-2024 07:49-0400 Diastolic blood pressure 77 mm[Hg] Kay Praisler-Wood PUBLICATIONS DISTRIBUTION CLERK.QUALITY CONTROL REPRESENTATIVE Work Phone: [facility] 01-13-2024 07:49-0400 Heart rate 78 /min Kay Praisler-Wood PUBLICATIONS DISTRIBUTION CLERK.QUALITY CONTROL REPRESENTATIVE Work Phone: [facility] 01-13-2024 07:49-0400 Respiratory rate 18 /min Kay Praisler-Wood PUBLICATIONS DISTRIBUTION CLERK.QUALITY CONTROL REPRESENTATIVE Work Phone: [facility] 01-13-2024 07:49-0400 SaO2% (BldA) [Mass fraction] 97 % Kay Praisler-Wood PUBLICATIONS DISTRIBUTION CLERK.QUALITY CONTROL REPRESENTATIVE Work Phone: [facility] 01-13-2024 07:49-0400 Systolic blood pressure 136 mm[Hg] Kay Praisler-Wood PUBLICATIONS DISTRIBUTION CLERK.QUALITY CONTROL REPRESENTATIVE Work Phone: [facility] 01-03-2024 14:35-0400 Body height 177.8 cm Mindy Jones MD Work Phone: [facility] 01-03-2024 14:35-0400 Body mass index (BMI) [Ratio] 38.17 kg/m2 Mindy Jones MD Work Phone: [facility] 01-03-2024 14:35-0400 Body temperature 97.11 [degF] Mindy Jones MD Work Phone: [facility] 01-03-2024 14:35-0400 Body weight 120.66 kg Mindy Jones MD Work Phone: [facility] 01-03-2024 14:35-0400 Diastolic blood pressure 88 mm[Hg] Mindy Jones MD Work Phone: [facility] 01-03-2024 14:35-0400 Heart rate 91 /min Mindy Jones MD Work Phone: [facility] 01-03-2024 14:35-0400 SaO2% (BldA) [Mass fraction] 97 % Mindy Jones MD Work Phone: [facility] 01-03-2024 14:35-0400 Systolic blood pressure 128 mm[Hg] Mindy Jones MD Work Phone: [facility] 12-10-2023 12:09-0400 Diastolic blood pressure 72 mm[Hg] Mindy Jones MD Work Phone: [facility] 12-10-2023 12:09-0400 Respiratory rate 16 /min Mindy Jones MD Work Phone: [facility] 12-10-2023 12:09-0400 Systolic blood pressure 139 mm[Hg] Mindy Jones MD Work Phone: [facility] 12-10-2023 12:00-0400 Heart rate 82 /min Mindy Jones MD Work Phone: [facility] 12-10-2023 12:00-0400 SaO2% (BldA) [Mass fraction] 95 % Mindy Jones MD Work Phone: [facility] 12-10-2023 10:49-0400 Body temperature 97.39 [degF] Mindy Jones MD Work Phone: [facility] 12-10-2023 10:49-0400 Body weight 122.2 kg Mindy Jones MD Work Phone: [facility] 11-05-2023 15:01-0500 Body height 177.8 cm Mindy Jones MD Work Phone: [facility] 11-05-2023 15:01-0500 Body temperature 97.2 [degF] Mindy Jones MD Work Phone: [facility] 11-05-2023 15:01-0500 Body weight 122.2 kg Mindy Jones MD Work Phone: [facility] 11-05-2023 15:01-0500 Diastolic blood pressure 78 mm[Hg] Mindy Jones MD Work Phone: [facility] 11-05-2023 15:01-0500 Heart rate 91 /min Mindy Jones MD Work Phone: [facility] 11-05-2023 15:01-0500 SaO2% (BldA) [Mass fraction] 94 % Mindy Jones MD Work Phone: [facility] 11-05-2023 15:01-0500 Systolic blood pressure 158 mm[Hg] Mindy Jones MD Work Phone: [facility] 08-01-2023 11:40-0500 Body temperature 98.1 [degF] Ani Gonzalez PUBLICATIONS DISTRIBUTION CLERK.QUALITY CONTROL REPRESENTATIVE Work Phone: [facility] 08-01-2023 11:40-0500 Body weight 118.39 kg Ani Gonzalez PUBLICATIONS DISTRIBUTION CLERK.QUALITY CONTROL REPRESENTATIVE Work Phone: [facility] 08-01-2023 11:40-0500 Diastolic blood pressure 83 mm[Hg] Ani Gonzalez APRN.QUALITY CONTROL REPRESENTATIVE Work Phone: [facility] 08-01-2023 11:40-0500 Heart rate 89 /min Ani Gonzalez APRN.QUALITY CONTROL REPRESENTATIVE Work Phone: [facility] 08-01-2023 11:40-0500 Respiratory rate 18 /min Ani Gonzalez PUBLICATIONS DISTRIBUTION CLERK.QUALITY CONTROL REPRESENTATIVE Work Phone: [facility] 08-01-2023 11:40-0500 SaO2% (BldA) [Mass fraction] 96 % Ani Gonzalez PUBLICATIONS DISTRIBUTION CLERK.QUALITY CONTROL REPRESENTATIVE Work Phone: [facility] 08-01-2023 11:40-0500 Systolic blood pressure 132 mm[Hg] Ani Gonzalez PUBLICATIONS DISTRIBUTION CLERK.QUALITY CONTROL REPRESENTATIVE Work Phone: [facility] 06-04-2023 10:51-0400 Body temperature 98.29 [degF] Angel Felix PUBLICATIONS DISTRIBUTION CLERK.QUALITY CONTROL REPRESENTATIVE Work Phone: [facility] 06-04-2023 10:51-0400 Body weight 117.66 kg Angel Grubbs PUBLICATIONS DISTRIBUTION CLERK.QUALITY CONTROL REPRESENTATIVE Work Phone: [facility] 06-04-2023 10:51-0400 Diastolic blood pressure 79 mm[Hg] Angel Grubbs PUBLICATIONS DISTRIBUTION CLERK.QUALITY CONTROL REPRESENTATIVE Work Phone: [facility] 06-04-2023 10:51-0400 Heart rate 97 /min Angel Felix PUBLICATIONS DISTRIBUTION CLERK.QUALITY CONTROL REPRESENTATIVE Work Phone: [facility] 06-04-2023 10:51-0400 Respiratory rate 16 /min Angel Grubbs PUBLICATIONS DISTRIBUTION CLERK.QUALITY CONTROL REPRESENTATIVE Work Phone: [facility] 06-04-2023 10:51-0400 SaO2% (BldA) [Mass fraction] 96 % Angel Grubbs PUBLICATIONS DISTRIBUTION CLERK.QUALITY CONTROL REPRESENTATIVE Work Phone: [facility] 06-04-2023 10:51-0400 Systolic blood pressure 131 mm[Hg] Angel Felix PUBLICATIONS DISTRIBUTION CLERK.QUALITY CONTROL REPRESENTATIVE Work Phone: [facility] 12-15-2022 15:33-0400 Body weight 118.75 kg Emigdio Prince MD Work Phone: [facility] 12-15-2022 15:33-0400 Diastolic blood pressure 84 mm[Hg] Emigdio Prince MD Work Phone: [facility] 12-15-2022 15:33-0400 Heart rate 80 /min Emigdio Prince MD Work Phone: [facility] 12-15-2022 15:33-0400 Respiratory rate 16 /min Emigdio Prince MD Work Phone: [facility] 12-15-2022 15:33-0400 Systolic blood pressure 136 mm[Hg] Emigdio Prince MD Work Phone: [facility] 05-27-2022 17:54-0400 Body height 180.3 cm Emigdio Prince MD Work Phone: [facility] 05-27-2022 17:54-0400 Body weight 112.63 kg Emigdio Prince MD Work Phone: [facility] 05-27-2022 17:54-0400 Diastolic blood pressure 98 mm[Hg] Emigdio Prince MD Work Phone: [facility] 05-27-2022 17:54-0400 Heart rate 82 /min Emigdio Prince MD Work Phone: [facility] 05-27-2022 17:54-0400 Respiratory rate 16 /min Emigdio Prince MD Work Phone: [facility] 05-27-2022 17:54-0400 SaO2% (BldA) [Mass fraction] 95 % Emigdio Prince MD Work Phone: [facility] 05-27-2022 17:54-0400 Systolic blood pressure 140 mm[Hg] Emigdio Prince MD Work Phone: [facility] Encounters Encounter Date Encounter Type Care Provider Facility Start: 12-10-2024 End: 12-10-2024 ambulatory EMIGDIO PRINCE Facility:[facility] Start: 12-10-2024 End: 12-10-2024 Patient encounter procedure Joyce Chao APRN.QUALITY CONTROL REPRESENTATIVE Work Phone: [facility] Comment on above: Lower respiratory in fection (Primary Dx) Start: 11-08-2024 End: 01-08-2025 Follow-up encounter Yessy Vaughan APRN.CNP Work Phone: [facility] Start: 11-08-2024 End: 11-08-2024 ambulatory [facility] Facility:[facility] Start: 11-08-2024 End: 11-08-2024 Patient encounter procedure Prudencio Moncada APRN.QUALITY CONTROL REPRESENTATIVE Work Phone: [facility] Comment on above: Sore throat (Primary Dx); URI, acute Start: 09-04-2024 End: 09-04-2024 ambulatory [facility] Facility:[facility] Start: 09-04-2024 End: 09-04-2024 Patient encounter procedure Emigdio Prince MD Work Phone: [facility] Comment on above: Cough, unspecified t ype (Primary Dx); Sore throat; Chest pain on breathing; Bronchitis Start: 07-06-2024 End: 07-06-2024 ambulatory [facility] Facility:[facility] Start: 07-06-2024 End: 07-06-2024 Patient encounter procedure [facility] Comment on above: Wellness examination (Primary Dx); Excessive sweating; Anxiety; Screening for depression; Pain in both hands; Pain in both wrists Start: 07-06-2024 End: 07-06-2024 Patient encounter status Emigdio Prince MD Work Phone: [facility] Start: 07-03-2024 End: 07-04-2024 Refill Angel Grubbs APRN.QUALITY CONTROL REPRESENTATIVE Work Phone: [facility] Comment on above: Refill Request Start: 01-14-2024 Refill Angel MARCH RN.QUALITY CONTROL REPRESENTATIVE Work Phone: [facility] Comment on above: Refill Request Start: 01-13-2024 End: 01-13-2024 ambulatory [facility] Facility:[facility] Start: 01-13-2024 End: 01-13-2024 Patient encounter procedure Kay Davenport APRN.QUALITY CONTROL REPRESENTATIVE Work Phone: [facility] Comment on above: Dermatitis due to pl ants, including poison veronica, sumac, and oak (Primary Dx) Start: 01-03-2024 End: 01-03-2024 ambulatory MINDY JONES Facility:[facility] Start: 01-03-2024 End: 01-03-2024 Patient encounter procedure Mindy Jonse MD Work Phone: General Surgery Comment on above: Status post skin and subcutaneous tissue surgery (Primary Dx) Start: 12-10-2023 End: 12-10-2023 Subsequent hospital visit by physician Mindy Jones MD Work Phone: Ambulatory Surgery Comment on above: Localized mass [R22. 9] Start: 11-08-2023 End: 07-11-2024 Telephone encounter Mindy Jones MD Work Phone: General Surgery Comment on above: 12/20/2023 EXC [facility] Start: 11-05-2023 End: 11-05-2023 Patient encounter procedure Mindy Jones MD Work Phone: General Surgery Comment on above: Localized mass Start: 10-21-2023 Telephone encounter Emigdio sarkar MD Work Phone: [facility] Start: 10-20-2023 ambulatory Emigdio au MD Work Phone: [facility] Comment on above: Cyst behind left ear Start: 08-01-2023 End: 08-01-2023 Patient encounter procedure Ani Gonzalez APRN.QUALITY CONTROL REPRESENTATIVE Work Phone: [facility] Comment on above: Bacterial sinusitis (Primary Dx) Start: 06-04-2023 End: 06-04-2023 Office outpatient visit 15 minutes Angel Grubbs APRN.QUALITY CONTROL REPRESENTATIVE Work Phone: [facility] Comment on above: Jock itch (Primary D x) Start: 12-15-2022 End: 12-15-2022 Patient encounter procedure Emigdio Prince MD Work Phone: [facility] Comment on above: Rectal bleeding (Dai logan Dx); Eczema, unspecified type; Sebaceous cyst Start: 10-19-2022 End: 10-19-2022 Nursing evaluation of patient and report Mi Nurse Work Phone: [facility] Comment on above: Need for vaccination (Primary Dx) Start: 05-27-2022 End: 05-27-2022 Patient encounter procedure Emigdio Prince MD Work Phone: [facility] Comment on above: Wellness examination (Primary Dx); Anxiety; Excessive sweating; Need for vaccination Start: 05-27-2022 End: 05-27-2022 Patient encounter status Emigdio Prince MD Work Phone: [facility] Start: 05-17-2022 Refill Angel MARCH RN.QUALITY CONTROL REPRESENTATIVE Work Phone: [facility] Comment on above: Refill Request Procedures Date Procedure Procedure Detail Performing Clinician Start: 11-08-2024 STREP A MOLECULAR (POC) Angel Sharpe MD Work Phone: Start: 07-06-2024 Adult depression screening assessment Emigdio Prince MD Work Phone: Start: 05-24-2022 Adult depression screening assessment Emigdio Prince MD Work Phone: Start: 03-28-2021 Adult depression screening assessment Angel Grubbs APRN.QUALITY CONTROL REPRESENTATIVE Work Phone: H/O: surgery Status post skin and subcutaneous tissue surgery Mindy Jones MD Work Phone: Plan of Treatment Date Care Activity Detail Author Start: 03-28-2031 Urine microalbumin profile [facility] Start: 07-06-2025 Covid-19 Vaccine ( season) Covid-19 Vaccine ( season) [facility] Comment on above: Postponed from 05/07 (Declined at this time) Start: 07-06-2025 Depression Screening Depression Scre john [facility] Start: 07-06-2025 Hepatitis C screening Hepatitis C Sc sahil [facility] Comment on above: Postponed from 04/11 (Declined at this time) Start: 07-06-2025 [facility] Comment on above: Postponed from 04/11 (Declined at this time) Start: 03-05-2025 Influenza vaccination Influenza Vacc ine (#1) [facility] Comment on above: Postponed from 05/07 (Declined at this time) Start: 07-06-2024 End: 07-06-2024 Patient encounter procedure 07/06/2024 3:00 PM EDT Office Visit [facility] [address] [place], [place] [id number] Emigdio Prince MD [address] [place], [place] [id number] General physical, prescription refills [facility] Comment on above: General physical, pr escription refills Start: 06-28-2024 Covid-19 Vaccine ( season) Covid-19 Vaccine ( season) [facility] Comment on above: Postponed from 05/07 (Declined at this time) Start: 05-07-2024 Covid-19 Vaccine ( season) Covid-19 Vaccine ( season) [facility] Start: 05-07-2024 Influenza vaccination C [facility] Start: 03-05-2024 Influenza vaccination Influenza Vacc ine (#1) [facility] Comment on above: Postponed from 05/07 (Declined at this time) Start: 12-16-2023 COVID-19 VACCINE (4 - Booster for Moderna series) COVID-19 VACCINE (4 - Booster for Moderna series) [facility] Comment on above: Postponed from 12/12 (Declined at this time) Start: 12-16-2023 Covid-19 Vaccine (4 - Moderna series) Covid-19 Vaccine (4 - Moderna series) [facility] Comment on above: Postponed from 12/12 (Declined at this time) Start: 09-06-2023 Behavioral Health Screening Behavioral Health Screening [facility] Start: 09-06-2023 Depression Assessment Depression Ass essment [facility] Start: 05-27-2023 HEPATITIS C SCREENING HEPATITIS C SC SAHIL [facility] Comment on above: Postponed from 04/11 (Declined at this time) Start: 05-27-2023 HIV SCREENING HIV SCREENING [facility] Comment on above: Postponed from 04/11 (Declined at this time) Start: 05-24-2023 Adult depression screening assessment DEPRESSION SCREENING [facility] Start: 05-07-2023 Influenza vaccination [facility] Start: 11-23-2022 9vhpv vacc 2/3 dose sched im use HUMAN PAPILLOMAVIRUS 9-VALENT HPV IM Immunization/Injection Routine Need for vaccination Expected: 11/23/2022 (Approximate) [facility] Work Phone: Comment on above: Expected: 11/23/2022 (Approximate) Start: 09-26-2022 HPV VACCINE (3 - Mal e 3-dose series) HPV VACCINE (3 - Male 3-dose series) [facility] Start: 09-06-2022 DEPRESSION ASSESSMENT DEPRESSION ASS ESSMENT [facility] Start: 07-26-2022 9vhpv vacc 2/3 dose sched im use HUMAN PAPILLOMAVIRUS 9-VALENT HPV IM Immunization/Injection Routine Need for vaccination Expected: 07/26/2022 (Approximate) [facility] Work Phone: Comment on above: Expected: 07/26/2022 (Approximate) Start: 05-07-2022 Influenza vaccination INFLUENZA (#1) [facility] Start: 03-28-2022 Adult depression screening assessment DEPRESSION SCREENING [facility] Start: 12-12-2021 COVID-19 VACCINE (4 - Booster for Moderna series) COVID-19 VACCINE (4 - Booster for Moderna series) [facility] Start: 06-03-2021 COVID-19 VACCINE (3 - Booster for Moderna series) COVID-19 VACCINE (3 - Booster for Moderna series) [facility] Start: 08-03-2017 HPV VACCINE (2 - Mal e 3-dose series) HPV VACCINE (2 - Male 3-dose series) [facility] Start: 2014 [facility]: [facility] HEPAT[facility]IS C SCREENING HEPATITIS C [facility] Start: 2014 Hepatitis C screening Hepatitis C [facility] Start: 2014 HIV SCREENING HIV SCREENING [facility] Start: 2014 HIV screening HIV Screening [facility] Start: 2010 PEDS TO ADULT TRANSITION ANNUAL ASSESSMENT PEDS TO ADULT TRANSITION ANNUAL ASSESSMENT [facility] Start: 2008 PEDS TO ADULT TRANSITION INITIAL DISCUSSION PEDS TO ADULT TRANSITION INITIAL DISCUSSION [facility] Start: 2006 MENINGOCOCCAL B: Consider based on risk (1 of 2 - Risk Bexsero 2-dose series) MENINGOCOCCAL B: Consider based on risk (1 of 2 - Risk Bexsero 2-dose series) [facility] COVID & INFLUENZA A/ B & RSV PCR, ROUTINE COVID & INFLUENZA A/B & RSV PCR, ROUTINE Microbiology Routine URI, acute Ordered: 11/08/2024 [facility] Work Phone: Comment on above: Ordered: 11/08/2024 SURGICAL PATHOLOGY [facility] Work Phone: Comment on above: Release Upon Orderin g for 1 Occurrences starting 12/10/2023 [facility]IDA PROC [facility] Immunizations Immunization Date Immunization Notes Care Provider Fa [facility] 01-26-2023 Human Papillomavirus 9-valent vaccine Angel Felix PUBLICATIONS DISTRIBUTION CLERK.QUALITY CONTROL REPRESENTATIVE Work Phone: [facility] Work Phone: 10-19-2022 Human Papillomavirus 9-valent vaccine Mi Nurse Work Phone: [facility] Work Phone: 05-27-2022 Human Papillomavirus 9-valent vaccine Emigdio Prince MD Work Phone: [facility] 03-28-2021 tetanus toxoid, redu amelia diphtheria toxoid, and acellular pertussis vaccine, adsorbed Angel Felix PUBLICATIONS DISTRIBUTION CLERK.QUALITY CONTROL REPRESENTATIVE Work Phone: [facility] 01-01-2021 COVID-19 vaccine, fu ll dose (MODERNA) Angel Grubbs PUBLICATIONS DISTRIBUTION CLERK.QUALITY CONTROL REPRESENTATIVE Work Phone: [facility] Work Phone: 12-04-2020 COVID-19 vaccine, fu ll dose (MODERNA) Angel Grubbs PUBLICATIONS DISTRIBUTION CLERK.QUALITY CONTROL REPRESENTATIVE Work Phone: [facility] Work Phone: 07-05-2018 influenza virus vacc ine, unspecified formulation Angel Grubbs APRN.QUALITY CONTROL REPRESENTATIVE Work Phone: [facility] 11-02-2011 hepatitis A vaccine, pediatric/adolescent dosage, 2 dose schedule Angel Grubbs APRN.QUALITY CONTROL REPRESENTATIVE Work Phone: [facility] Work Phone: 11-02-2011 varicella virus vaccine Brenda Grubbs APRN.[facility] Work Phone: [facility] Work Phone: 04-24-2011 hepatitis A vaccine, pediatric/adolescent dosage, 2 dose schedule Angel Grubbs APRN.[facility] Work Phone: [facility] Work Phone: 04-24-2011 meningococcal polysaccharide (groups A, C, Y and W-135) diphtheria toxoid conjugate vaccine (MCV4P) Angel Grubbs APRN.[facility] Work Phone: [facility] Work Phone: 11-09-2008 tetanus toxoid, redu amelia diphtheria toxoid, and acellular pertussis vaccine, adsorbed Angel Grubbs APRN.[facility] Work Phone: [facility] Work Phone: 04-20-2001 diphtheria, tetanus toxoids and acellular pertussis vaccine, unspecified formulation Angel Grubbs APRN.QUALITY CONTROL REPRESENTATIVE Work Phone: [facility] Work Phone: 04-20-2001 poliovirus vaccine, inactivated Angel Grubbs APRN.QUALITY CONTROL REPRESENTATIVE Work Phone: [facility] Work Phone: 04-14-2000 measles, mumps and rubella virus vaccine Angel Grubbs APRN.QUALITY CONTROL REPRESENTATIVE Work Phone: [facility] Work Phone: 04-14-2000 varicella virus vaccine Brenda Grubbs APRN.QUALITY CONTROL REPRESENTATIVE Work Phone: [facility] Work Phone: 01-09-1998 diphtheria, tetanus toxoids and acellular pertussis vaccine, unspecified formulation Angel Grubbs PUBLICATIONS DISTRIBUTION CLERK.[facility] Work Phone: [facility] Work Phone: 08-22-1997 haemophilus influenz ae type b conjugate and Hepatitis B vaccine Angel Grubbs PUBLICATIONS DISTRIBUTION CLERK.QUALITY CONTROL REPRESENTATIVE Work Phone: [facility] Work Phone: 08-22-1997 haemophilus influenz ae type b vaccine, PRP-T conjugate Angel Grubbs PUBLICATIONS DISTRIBUTION CLERK.[facility] Work Phone: [facility] Work Phone: 08-22-1997 hepatitis B vaccine, pediatric or pediatric/adolescent dosage Angel Grubbs PUBLICATIONS DISTRIBUTION CLERK.[facility] Work Phone: [facility] Work Phone: 08-22-1997 measles, mumps and rubella virus vaccine Angel Felix PUBLICATIONS DISTRIBUTION CLERK.QUALITY CONTROL REPRESENTATIVE Work Phone: [facility] Work Phone: 08-16-1997 measles, mumps and rubella virus vaccine Angel Felix PUBLICATIONS DISTRIBUTION CLERK.[facility] Work Phone: [facility] Work Phone: 01-03-1997 diphtheria, tetanus toxoids and acellular pertussis vaccine, unspecified formulation Angel Grubbs PUBLICATIONS DISTRIBUTION CLERK.QUALITY CONTROL REPRESENTATIVE Work Phone: [facility] Work Phone: 01-03-1997 haemophilus influenz ae type b vaccine, conjugate unspecified formulation Angel Grubbs PUBLICATIONS DISTRIBUTION CLERK.QUALITY CONTROL REPRESENTATIVE Work Phone: [facility] Work Phone: 01-03-1997 trivalent poliovirus vaccine, live, oral Angel Grubbs PUBLICATIONS DISTRIBUTION CLERK.QUALITY CONTROL REPRESENTATIVE Work Phone: [facility] Work Phone: 1996 DTP-Haemophilus influenzae type b conjugate vaccine Angel Grubbs PUBLICATIONS DISTRIBUTION CLERK.QUALITY CONTROL REPRESENTATIVE Work Phone: [facility] Work Phone: 1996 haemophilus influenz ae type b vaccine, PRP-T conjugate Angel Felix PUBLICATIONS DISTRIBUTION CLERK.QUALITY CONTROL REPRESENTATIVE Work Phone: [facility] Work Phone: 1996 trivalent poliovirus vaccine, live, oral Angel Felix PUBLICATIONS DISTRIBUTION CLERK.[facility] Work Phone: [facility] Work Phone: 1996 DTP-Haemophilus influenzae type b conjugate vaccine Angel Felix PUBLICATIONS DISTRIBUTION CLERK.QUALITY CONTROL REPRESENTATIVE Work Phone: [facility] Work Phone: 1996 haemophilus influenz ae type b vaccine, PRP-T conjugate Angel Felix PUBLICATIONS DISTRIBUTION CLERK.[facility] Work Phone: [facility] Work Phone: 1996 hepatitis B vaccine, pediatric or pediatric/adolescent dosage Angel Felix PUBLICATIONS DISTRIBUTION CLERK.QUALITY CONTROL REPRESENTATIVE Work Phone: [facility] Work Phone: 1996 trivalent poliovirus vaccine, live, oral Angel Felix PUBLICATIONS DISTRIBUTION CLERK.[facility] Work Phone: [facility] Work Phone: 1996 hepatitis B vaccine, pediatric or pediatric/adolescent dosage Angel Felix PUBLICATIONS DISTRIBUTION CLERK.[facility] Work Phone: [facility] Work Phone: Payers Date Payer Category Payer Private Health Insurance MMO [employer] PPO Member Subscriber Plan / Payer (Effective 2022-Present) Name: Ricky Mercer Relation to Subscriber: Self Name: Ricky Mercer Payer ID: Not on file Type: PPO Address: [place] [id number] 2022 Unknown [id number] 2019 Unknown [id number] Social History Date Type Detail Facility Start: 01-03-2018 End: 05-27-2022 Tobacco smoking status NHIS Never smoked tobacco [facility] Start: 01-03-2018 End: 05-27-2022 Tobacco use and exposure Smokeless tobacco non-user [facility] Start: 03-28-2021 End: 11-08-2024 Alcohol intake Current non-drinker of alcohol (finding) [facility] Start: 1995 Sex Assigned At Not on file C [facility] Start: 05-24-2022 End: 12-04-2022 History SDOH Alcohol Frequency 5 [facility] Start: 05-24-2022 End: 12-04-2022 History SDOH Alcohol Std Drinks 1 [facility] Start: 05-24-2022 End: 12-04-2022 History SDOH Social Connections Get Together 2 [facility] Start: 05-24-2022 End: 12-04-2022 History SDOH Social Connections Living 3 [facility] Start: 05-24-2022 History SDOH Physica l Activity DPW 4 [facility] Start: 05-17-2022 End: 05-27-2022 Exposure to SARS-CoV-2 (event) Not sure [facility] Start: 12-04-2022 History SDOH Social Connections Religious 98 [facility] Start: 12-04-2022 End: 01-25-2023 History of Social function [employer] Start: 12-04-2022 End: 01-25-2023 Social connection and isolation panel [facility] How often do you att end mosque or voodoo services? Patient refused [facility] Do you belong to any clubs or organizations such as mosque groups, unions, fraternal or athletic groups, or school groups? No [facility] Are you now , , , , never or living with a partner? [facility] How often to you hav e a drink containing alcohol? 4 or more times a week [facility] How many standard dr inks containing alcohol do you have on a typical day? 1 or 2 [facility] How often do you hav e 6 or more drinks on 1 occasion? Never [facility] Do you feel stress - tense, restless, nervous, or anxious, or unable to sleep at night because your mind is troubled all the time - these days [OSQ] Only a little [facility] (I/We) worried wheth er (my/our) food would run out before (I/we) got money to buy more. Never true [facility] Clinical Notes 05-18-2022 to 12-10-2024 Joyce Chao APRN.JOSUE - 12/10/2024 9:28 AM Prudencio Calhoun APRN.JOSUE - 11/08/2024 7:56 AM ESTPatient InstructionsEmigdio Prince MD - 09/04/2024 5:40 PM ESTPatient Instructions Note Date & Type Note Facility 12-10-2024 Note HNO ID: [id number] Author: JOYCE CHAO APRN.QUALITY CONTROL REPRESENTATIVE Service: ? Author Type: Nurse Practitioner Type: Progress Notes Filed: 12/10/2024 09:45 Note Text: This note was created using Fitbitriter. Subjective Ricky Mercer is a 29 year old male. HPI Patient complains of 6 days of sore throat, cough, and feeling lightheaded. He denies any recent fevers. Feels as though symptoms are worsening. Review of Systems As above Objective BP 136/82 Pulse 97 Temp 36.8 ?C (98.2 ?F) Resp 18 Wt 119.8 kg (264 lb 1.8 oz) SpO2 96% BMI 35.82 kg/m? Physical Exam Vitals and nursing note reviewed. Constitutional: General: He is not in acute distress. Appearance: Normal appearance. He is not ill-appearing. HENT: Head: Normocephalic. Mouth/Throat: Mouth: Mucous membranes are moist. Eyes: Conjunctiva/sclera: Conjunctivae normal. Cardiovascular: Rate and Rhythm: Normal rate and regular rhythm. Pulmonary: Effort: Pulmonary effort is normal. Breath sounds: Normal breath sounds. Musculoskeletal: General: Normal range of motion. Cervical back: Normal range of motion. Skin: General: Skin is warm and dry. Neurological: General: No focal deficit present. Mental Status: He is alert. Psychiatric: Mood and Affect: Mood normal. Behavior: Behavior normal. Assessment and Plan ASSESSMENT/PLAN: 1. Lower respiratory infection - ICD9: 519.8, ICD10: J22 Discussed viral versus bacterial etiology with patient. As patient notes 1 week of worsening cough there is concern for possible lower respiratory tract infection and patient will be treated accordingly. Did consider viral testing however as he has 6 days of symptoms there is no specific treatment indicated at this time and again with worsening symptoms patient opted to try a round of antibiotics. No chest x-ray available today - DOXYCYCLINE MONOHYDRATE 100 MG CAPSULE - BENZONATATE 100 MG CAPSULE Joyce Chao APRN.QUALITY CONTROL REPRESENTATIVE [facility] 12-10-2024 History of Presen t illness Narrative This note was created using Fitbitriter. Subjective Ricky Mercer is a 29 year old male. HPI Patient complains of 6 days of sore throat, cough, and feeling lightheaded. He denies any recent fevers. Feels as though symptoms are worsening. Review of Systems As above Objective BP 136/82 Pulse 97 Temp 36.8 C (98.2 F) Resp 18 Wt 119.8 kg (264 lb 1.8 oz) SpO2 96% BMI 35.82 kg/m Physical Exam Vitals and nursing note reviewed. Constitutional: General: He is not in acute distress. Appearance: Normal appearance. He is not ill-appearing. HENT: Head: Normocephalic. Mouth/Throat: Mouth: Mucous membranes are moist. Eyes: Conjunctiva/sclera: Conjunctivae normal. Cardiovascular: Rate and Rhythm: Normal rate and regular rhythm. Pulmonary: Effort: Pulmonary effort is normal. Breath sounds: Normal breath sounds. Musculoskeletal: General: Normal range of motion. Cervical back: Normal range of motion. Skin: General: Skin is warm and dry. Neurological: General: No focal deficit present. Mental Status: He is alert. Psychiatric: Mood and Affect: Mood normal. Behavior: Behavior normal. Assessment and Plan ASSESSMENT/PLAN: 1. Lower respiratory infection - ICD9: 519.8, ICD10: J22 Discussed viral versus bacterial etiology with patient. As patient notes 1 week of worsening cough there is concern for possible lower respiratory tract infection and patient will be treated accordingly. Did consider viral testing however as he has 6 days of symptoms there is no specific treatment indicated at this time and again with worsening symptoms patient opted to try a round of antibiotics. No chest x-ray available today - DOXYCYCLINE MONOHYDRATE 100 MG CAPSULE - BENZONATATE 100 MG CAPSULE Joyce Chao APRN.QUALITY CONTROL REPRESENTATIVE documented in this encounter [facility] 11-08-2024 Note HNO ID: [id number] Author: PRUDENCIO MONCADA APRN.CNP Service: ? Author Type: Nurse Practitioner Type: Progress Notes Filed: 11/08/2024 08:00 Note Text: Subjective HPI HPI Ricky Mercer is a 29 year old male who presents today for CC of st, loss of voice, fatigue, h/a. This started 2 days ago. Has tried otc medication for relief. Symptoms are worsened by nothing. Risk factors sick exposures at home. nonsmoker. .Patient presents with: Sore Throat: Fatigue x2 days, MARK, bodyaches PAST MEDICAL HISTORY Diagnosis Date Asthma Generalized anxiety disorder PAST SURGICAL HISTORY Procedure Laterality Date LIPOMA (SMALL) 12/10/2023 left side of head PAST SURGICAL HISTORY OF Right 2012, 2015 Right knee surgery ALLERGIES Patient has no known allergies. MEDICATIONS aluminum chloride (DRYSOL) 20 % external solution Apply to affected area daily at bedtime. As needed citalopram hydrobromide (CELEXA) 10 mg tablet Take 1 tablet by mouth once daily. predniSONE (DELTASONE) 20 mg tablet Take 2 tablets by mouth once daily for 5 days. Take daily with food. FAMILY HISTORY Problem Relation Age of Onset other (Anxiety) Mother other (Anxiety) Sister other (Anxiety) Brother Heart Maternal Grandmother Diabetes Maternal Grandfather Social History Tobacco Use Smoking status: Never Smokeless tobacco: Never Vaping Use Vaping status: Never Used Substance Use Topics Alcohol use: No Drug use: No Review of Systems Constitutional: Positive for chills and malaise/fatigue. Negative for fever. HENT: Positive for congestion and sore throat. Negative for ear pain and nosebleeds. Respiratory: Negative for cough, shortness of breath and wheezing. Musculoskeletal: Negative for neck pain. Skin: Negative for itching and rash. Neurological: Positive for headaches. Objective Blood pressure 133/82, pulse 79, temperature 36.2 ?C (97.2 ?F), resp. rate 18, weight 120.9 kg (266 lb 8.6 oz), SpO2 96%. Physical Exam Constitutional: General: He is not in acute distress. Appearance: He is not toxic-appearing or diaphoretic. HENT: Head: Normocephalic and atraumatic. Right Ear: Hearing, tympanic membrane, ear canal and external ear normal. Left Ear: Hearing, tympanic membrane, ear canal and external ear normal. Nose: Nose normal. Mouth/Throat: Pharynx: Uvula midline. No pharyngeal swelling, oropharyngeal exudate, posterior oropharyngeal erythema or uvula swelling. Eyes: General: Lids are normal. No scleral icterus. Right eye: No discharge. Left eye: No discharge. Conjunctiva/sclera: Conjunctivae normal. Pupils: Pupils are equal, round, and reactive to light. Neck: Trachea: Trachea normal. Cardiovascular: Rate and Rhythm: Normal rate and regular rhythm. Heart sounds: Normal heart sounds. Pulmonary: Effort: Pulmonary effort is normal. Breath sounds: Normal breath sounds. Musculoskeletal: Cervical back: Normal range of motion and neck supple. Lymphadenopathy: Cervical: No cervical adenopathy. Right cervical: No superficial cervical adenopathy. Left cervical: No superficial cervical adenopathy. Skin: Findings: No rash. Neurological: Mental Status: He is alert and oriented to person, place, and time. ASSESSMENT/PLAN: 1. Sore throat - ICD9: 462, ICD10: J02.9 (primary diagnosis) Negative, viral - STREP A MOLECULAR (POC) - PREDNISONE 20 MG TABLET 2. URI, acute - ICD9: 465.9, ICD10: J06.9 - Discussed viral etiology and rationale for treatment. - Symptomatic treatment with prn analgesia - Supportive care with fluids and rest - Follow up in 3-5 days if symptoms persist or sooner if worsening of symptoms States will not likely want paxlovid if positive for covid. - COVID AND INFLUENZA A/B AND RSV PCR, ROUTINE Prudencio Moncada APRN.QUALITY CONTROL REPRESENTATIVE [facility] 11-08-2024 History of Presen t illness Narrative Subjective HPI HPI Ricky Mercer is a 29 year old male who presents today for CC of st, loss of voice, fatigue, h/a. This started 2 days ago. Has tried otc medication for relief. Symptoms are worsened by nothing. Risk factors sick exposures at home. nonsmoker. .Patient presents with: Sore Throat: Fatigue x2 days, MARK, bodyaches PAST MEDICAL HISTORY Diagnosis Date Asthma Generalized anxiety disorder PAST SURGICAL HISTORY Procedure Laterality Date LIPOMA (SMALL) 12/10/2023 left side of head PAST SURGICAL HISTORY OF Right 2012, 2015 Right knee surgery ALLERGIES Patient has no known allergies. MEDICATIONS aluminum chloride (DRYSOL) 20 % external solution Apply to affected area daily at bedtime. As needed citalopram hydrobromide (CELEXA) 10 mg tablet Take 1 tablet by mouth once daily. predniSONE (DELTASONE) 20 mg tablet Take 2 tablets by mouth once daily for 5 days. Take daily with food. FAMILY HISTORY Problem Relation Age of Onset other (Anxiety) Mother other (Anxiety) Sister other (Anxiety) Brother Heart Maternal Grandmother Diabetes Maternal Grandfather Social History Tobacco Use Smoking status: Never Smokeless tobacco: Never Vaping Use Vaping status: Never Used Substance Use Topics Alcohol use: No Drug use: No Review of Systems Constitutional: Positive for chills and malaise/fatigue. Negative for fever. HENT: Positive for congestion and sore throat. Negative for ear pain and nosebleeds. Respiratory: Negative for cough, shortness of breath and wheezing. Musculoskeletal: Negative for neck pain. Skin: Negative for itching and rash. Neurological: Positive for headaches. Objective Blood pressure 133/82, pulse 79, temperature 36.2 C (97.2 F), resp. rate 18, weight 120.9 kg (266 lb 8.6 oz), SpO2 96%. Physical Exam Constitutional: General: He is not in acute distress. Appearance: He is not toxic-appearing or diaphoretic. HENT: Head: Normocephalic and atraumatic. Right Ear: Hearing, tympanic membrane, ear canal and external ear normal. Left Ear: Hearing, tympanic membrane, ear canal and external ear normal. Nose: Nose normal. Mouth/Throat: Pharynx: Uvula midline. No pharyngeal swelling, oropharyngeal exudate, posterior oropharyngeal erythema or uvula swelling. Eyes: General: Lids are normal. No scleral icterus. Right eye: No discharge. Left eye: No discharge. Conjunctiva/sclera: Conjunctivae normal. Pupils: Pupils are equal, round, and reactive to light. Neck: Trachea: Trachea normal. Cardiovascular: Rate and Rhythm: Normal rate and regular rhythm. Heart sounds: Normal heart sounds. Pulmonary: Effort: Pulmonary effort is normal. Breath sounds: Normal breath sounds. Musculoskeletal: Cervical back: Normal range of motion and neck supple. Lymphadenopathy: Cervical: No cervical adenopathy. Right cervical: No superficial cervical adenopathy. Left cervical: No superficial cervical adenopathy. Skin: Findings: No rash. Neurological: Mental Status: He is alert and oriented to person, place, and time. ASSESSMENT/PLAN: 1. Sore throat - ICD9: 462, ICD10: J02.9 (primary diagnosis) Negative, viral - STREP A MOLECULAR (POC) - PREDNISONE 20 MG TABLET 2. URI, acute - ICD9: 465.9, ICD10: J06.9 - Discussed viral etiology and rationale for treatment. - Symptomatic treatment with prn analgesia - Supportive care with fluids and rest - Follow up in 3-5 days if symptoms persist or sooner if worsening of symptoms States will not likely want paxlovid if positive for covid. - COVID & INFLUENZA A/B & RSV PCR, ROUTINE Prudencio Moncada APRN.QUALITY CONTROL REPRESENTATIVE documented in this encounter [facility] 11-08-2024 Note SARS-COV-2 (AGENT OF COVID-19) RNA: Not detected INFLUENZA A RNA: Not detected INFLUENZA B RNA: Not detected RESPIRATORY SYNCYTIAL VIRUS (RSV) RNA: Not detected [facility] Comment on above: Performed By: #### [id number] ####[facility] [id number] [place] [address] [place] 09-04-2024 Instructions Charu Chang MA - 09/04/2024 5:42 PM EST Update office via Frilp if not improving. documented in this encounter [facility] 09-04-2024 History of Presen t illness Narrative Chief Complaint Patient presents with: Cough HPI Ricky Mercer is a 29 year old male who presents here today for an acute visit. Pt here today for ongoing issues with a cough and slight sore throat. Pt reports that two nights ago he had two bouts of vomiting and this has since cleared up. Denies no other GI symptoms prior to this other than some slight upset stomach prior to vomiting. No one else at home sick with GI symptoms. Since vomiting two nights ago he's started having centralized chest pain with coughing or taking a deep breath. Pain described as a dull and stabbing type pain. Feels he can't take a deep breath and at times can't catch his breath. Denies any dysphagia or pain with swallowing. Reports daughter and were both sick recently. Daughter is in daycare and works in a School. Past medical history, appointments, medications, allergies reviewed. Previous Medical History PAST MEDICAL HISTORY Diagnosis Date Asthma Generalized anxiety disorder Previous Surgical History PAST SURGICAL HISTORY Procedure Laterality Date LIPOMA (SMALL) 12/10/2023 left side of head PAST SURGICAL HISTORY OF Right 2012, 2014 Right knee surgery Family History FAMILY HISTORY Problem Relation Age of Onset other (Anxiety) Mother other (Anxiety) Sister other (Anxiety) Brother Heart Maternal Grandmother Diabetes Maternal Grandfather Patient Allergies ALLERGIES No Known Allergies Current Medications Current Outpatient Medications on File Prior to Visit Medication Sig aluminum chloride (DRYSOL) 20 % external solution Apply to affected area daily at bedtime. As needed citalopram hydrobromide (CELEXA) 10 mg tablet Take 1 tablet by mouth once daily. No current facility-administered medications on file prior to visit. Social History Social History Tobacco Use Smoking status: Never Smokeless tobacco: Never Vaping Use Vaping status: Never Used Substance Use Topics Alcohol use: No Drug use: No EXAM: BP 122/82 (BP Site: Left Arm, BP Position: Sitting, BP Cuff Size: Large Adult) Pulse 84 Resp 16 Wt 119.6 kg (263 lb 10.7 oz) BMI 35.76 kg/m General Appearance: Well appearing, alert, in no acute distress, well-hydrated, well nourished. and Obese. Oropharynx: Lips, mucosa, and tongue normal, teeth and gums normal. Oropharynx slight erythema noted on exam. Lungs: Lungs clear to auscultation. No wheezing, rhonchi, rales.. Heart: RRR without murmur, gallop, or rubs. No ectopy. Health Maintenance List Influenza Vaccine(1) due on 03/05/2025 Hepatitis C Screening due on 07/06/2025 HIV Screening due on 07/06/2025 Covid-19 Vaccine( season) due on 07/06/2025 Depression Screening due on 07/06/2025 DTaP,Tdap,Td Vaccine(8 - Td or Tdap) due on 03/28/2031 Hepatitis B Vaccine Completed HPV Vaccine Addressed Data reviewed None ASSESSMENT/PLAN: 1. Cough, unspecified type - ICD9: 786.2, ICD10: R05.9 (primary diagnosis) - Cont OTC treatment - Start Zpak 2. Sore throat - ICD9: 462, ICD10: J02.9 - Start Zpak 3. Chest pain on breathing - ICD9: 786.52, ICD10: R07.1 - Bronchitis 4. Bronchitis - ICD9: 490, ICD10: J40 - Start Zpak Start Zpak, update office if not improving. I agree with the Chief Complaint, ROS, and Past Histories independently gathered by the clinical sales support engineer and the remaining scribed note accurately describes my personal service to the patient. Medical Decision Making: Problems: Low: Acute, uncomplicated illness or injury Risk: Moderate: Drug management Medical Decision Making Level: 3 - Low Emigdio Prince MD The documentation for this note was completed by Charu Chang MA acting as scribe for Emigdio Prince MD. September 04, 2024 5:41 PM. Charu Chang MA documented in this encounter [facility] 09-04-2024 Note HNO ID: [id number] Author: EMIGDIO PRINCE MD Service: ? Author Type: Physician Type: Progress Notes Filed: 09/04/2024 19:44 Note Text: Chief Complaint Patient presents with: Cough HPI Ricky Mercer is a 29 year old male who presents here today for an acute visit. Pt here today for ongoing issues with a cough and slight sore throat. Pt reports that two nights ago he had two bouts of vomiting and this has since cleared up. Denies no other GI symptoms prior to this other than some slight upset stomach prior to vomiting. No one else at home sick with GI symptoms. Since vomiting two nights ago he's started having centralized chest pain with coughing or taking a deep breath. Pain described as a dull and stabbing type pain. Feels he can't take a deep breath and at times can't catch his breath. Denies any dysphagia or pain with swallowing. Reports daughter and were both sick recently. Daughter is in daycare and works in a School. Past medical history, appointments, medications, allergies reviewed. Previous Medical History PAST MEDICAL HISTORY Diagnosis Date Asthma Generalized anxiety disorder Previous Surgical History PAST SURGICAL HISTORY Procedure Laterality Date LIPOMA (SMALL) 12/10/2023 left side of head PAST SURGICAL HISTORY OF Right 2012, 2014 Right knee surgery Family History FAMILY HISTORY Problem Relation Age of Onset other (Anxiety) Mother other (Anxiety) Sister other (Anxiety) Brother Heart Maternal Grandmother Diabetes Maternal Grandfather Patient Allergies ALLERGIES No Known Allergies Current Medications Current Outpatient Medications on File Prior to Visit Medication Sig aluminum chloride (DRYSOL) 20 % external solution Apply to affected area daily at bedtime. As needed citalopram hydrobromide (CELEXA) 10 mg tablet Take 1 tablet by mouth once daily. No current facility-administered medications on file prior to visit. Social History Social History Tobacco Use Smoking status: Never Smokeless tobacco: Never Vaping Use Vaping status: Never Used Substance Use Topics Alcohol use: No Drug use: No EXAM: BP 122/82 (BP Site: Left Arm, BP Position: Sitting, BP Cuff Size: Large Adult) Pulse 84 Resp 16 Wt 119.6 kg (263 lb 10.7 oz) BMI 35.76 kg/m? General Appearance: Well appearing, alert, in no acute distress, well-hydrated, well nourished. and Obese. Oropharynx: Lips, mucosa, and tongue normal, teeth and gums normal. Oropharynx slight erythema noted on exam. Lungs: Lungs clear to auscultation. No wheezing, rhonchi, rales.. Heart: RRR without murmur, gallop, or rubs. No ectopy. Health Maintenance List Influenza Vaccine(1) due on 03/05/2025 Hepatitis C Screening due on 07/06/2025 HIV Screening due on 07/06/2025 Covid-19 Vaccine(2023- season) due on 07/06/2025 Depression Screening due on 07/06/2025 DTaP,Tdap,Td Vaccine(8 - Td or Tdap) due on 03/28/2031 Hepatitis B Vaccine Completed HPV Vaccine Addressed Data reviewed None ASSESSMENT/PLAN: 1. Cough, unspecified type - ICD9: 786.2, ICD10: R05.9 (primary diagnosis) - Cont OTC treatment - Start Zpak 2. Sore throat - ICD9: 462, ICD10: J02.9 - Start Zpak 3. Chest pain on breathing - ICD9: 786.52, ICD10: R07.1 - Bronchitis 4. Bronchitis - ICD9: 490, ICD10: J40 - Start Zpak Start Zpak, update office if not improving. I agree with the Chief Complaint, ROS, and Past Histories independently gathered by the clinical sales support engineer and the remaining scribed note accurately describes my personal service to the patient. Medical Decision Making: Problems: Low: Acute, uncomplicated illness or injury Risk: Moderate: Drug management Medical Decision Making Level: 3 - Low Emigdio Prince MD The documentation for this note was completed by Charu Chang MA acting as scribe for Emigdio Prince MD. September 04, 2024 5:41 PM. Charu Chang MA [facility] 07-06-2024 History of Presen t illness Narrative Chief Complaint Patient presents with: Physical HPI Ricky Mercer is a 29 year old male who presents here today for physical. 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 Declined flu, covid vaccines, Hep C and HIV screening. No bowel, Gi, or urinary issues. No chest pains, dizziness, or SOB. NEAL/Depression: Taking Celexa 10 mg daily. Feels this is working well for him. No problems or side effects form the Celexa. No SI/HI. Sleeps well at night. No snoring or any sx of Sleep apnea. Uses Drysol solution at bedtime prn for excessive sweating. Tries to watch diet, fruits and vegetables with meals. Watching carbs. Does not drink pop. He now drinks sweet tea but needs to switch to unsweetened. Low to moderate exercise, chasing toddler. No regular exercise regimen. He did work out more before the baby but now has trouble finding the time. C/o Bishop hand and wrist pain that has been an issues off and on for several years but over the last few months has become more consistent. No swelling of the hands or wrist. Pain is dull ache when not using and then sharp shooting with use. He does some stretches which helps and if pain is really bad will use ice occ. Has not taken anything for pain. 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 He has been in the workshop a little more but nothing to excessive. Does not bother him at night. Right hand dominant. Past medical history, appointments, medications, allergies reviewed. Previous Medical History PAST MEDICAL HISTORY Diagnosis Date Asthma Generalized anxiety disorder Previous Surgical History PAST SURGICAL HISTORY Procedure Laterality Date LIPOMA (SMALL) 12/10/2023 left side of head PAST SURGICAL HISTORY OF Right 2012, 2014 Right knee surgery Family History FAMILY HISTORY Problem Relation Age of Onset other (Anxiety) Mother other (Anxiety) Sister other (Anxiety) Brother Heart Maternal Grandmother Diabetes Maternal Grandfather Patient Allergies ALLERGIES No Known Allergies Current Medications Current Outpatient Medications on File Prior to Visit Medication Sig aluminum chloride (DRYSOL) 20 % external solution Apply to affected area daily at bedtime. As needed citalopram hydrobromide (CELEXA) 10 mg tablet Take 1 tablet by mouth once daily. ciclopirox (LOPROX) 0.77 % cream Apply to affected area two times a day. No current facility-administered medications on file prior to visit. Social History Social History Tobacco Use Smoking status: Never Smokeless tobacco: Never Vaping Use Vaping status: Never Used Substance Use Topics Alcohol use: No Drug use: No EXAM: BP 126/74 Pulse 84 Resp 16 Ht 182.9 cm (6') Wt 121.9 kg (268 lb 11.9 oz) BMI 36.45 kg/m General Appearance: Well appearing, alert, in no acute distress, well-hydrated, well nourished. and Overweight. Lungs: Lungs clear to auscultation. No wheezing, rhonchi, rales.. Heart: RRR without murmur, gallop, or rubs. No ectopy. Abdomen: Normal abdominal exam, Abdomen soft, non-tender. Bowel sounds normal. No masses, organomegaly. Hands: Normal exam, no swelling or tenderness; reports pain across dorsum of hands Health Maintenance List Depression Screening Never done Influenza Vaccine(1) due on 03/05/2025 Hepatitis C Screening due on 07/06/2025 HIV Screening due on 07/06/2025 Covid-19 Vaccine( season) due on 07/06/2025 DTaP,Tdap,Td Vaccine(8 - Td or Tdap) due on 03/28/2031 Hepatitis B Vaccine Completed HPV Vaccine Addressed Data reviewed None ASSESSMENT/PLAN: 1. Wellness examination - ICD9: V70.0, ICD10: Z00.00 (primary diagnosis) - Counseled on healthy diet and regular exercise - Discussed need for and benefit of weight loss. BMI 36.45 kg/(m^2) - Follow up for annual exam in one year 2. Excessive sweating - ICD9: 780.8, ICD10: R61 Stable Continue current medications. - DRYSOL DAB-O-MATIC 20 % TOPICAL SOLUTION 3. Anxiety - ICD9: 300.00, ICD10: F41.9 Stable Continue current medications. - CITALOPRAM 10 MG TABLET 4. Screening for depression - ICD9: V79.0, ICD10: Z13.31 - DEPRESSION SCREENING 5. Pain in both hands - ICD9: 729.5, ICD10: M79.641, M79.642 Over use Continue with stretches May use heat 6. Pain in both wrists - ICD9: 719.43, ICD10: M25.531, M25.532 Over use Continue with stretches May use heat Follow up in 1 year or sooner if needed. I agree with the Chief Complaint, ROS, and Past Histories independently gathered by the clinical sales support engineer and the remaining scribed note accurately describes my personal service to the patient. Emigdio Prince MD The documentation for this note was completed by Cherie Escamilla MA acting as scribe for Emigdio Prince MD. July 06, 2024 3:02 PM. Cherie Escamilla MA documented in this encounter [facility] 07-06-2024 Note HNO ID: [id number] Author: EMIGDIO PRINCE MD Service: ? Author Type: Physician Type: Progress Notes Filed: 07/06/2024 16:00 Note Text: Chief Complaint Patient presents with: Physical HPI Ricky Mercer is a 29 year old male who presents here today for physical. 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 Declined flu, covid vaccines, Hep C and HIV screening. No bowel, Gi, or urinary issues. No chest pains, dizziness, or SOB. NEAL/Depression: Taking Celexa 10 mg daily. Feels this is working well for him. No problems or side effects form the Celexa. No SI/HI. Sleeps well at night. No snoring or any sx of Sleep apnea. Uses Drysol solution at bedtime prn for excessive sweating. Tries to watch diet, fruits and vegetables with meals. Watching carbs. Does not drink pop. He now drinks sweet tea but needs to switch to unsweetened. Low to moderate exercise, chasing toddler. No regular exercise regimen. He did work out more before the baby but now has trouble finding the time. C/o Bishop hand and wrist pain that has been an issues off and on for several years but over the last few months has become more consistent. No swelling of the hands or wrist. Pain is dull ache when not using and then sharp shooting with use. He does some stretches which helps and if pain is really bad will use ice occ. Has not taken anything for pain. 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 He has been in the workshop a little more but nothing to excessive. Does not bother him at night. Right hand dominant. Past medical history, appointments, medications, allergies reviewed. Previous Medical History PAST MEDICAL HISTORY Diagnosis Date Asthma Generalized anxiety disorder Previous Surgical History PAST SURGICAL HISTORY Procedure Laterality Date LIPOMA (SMALL) 12/10/2023 left side of head PAST SURGICAL HISTORY OF Right 2012, 2014 Right knee surgery Family History FAMILY HISTORY Problem Relation Age of Onset other (Anxiety) Mother other (Anxiety) Sister other (Anxiety) Brother Heart Maternal Grandmother Diabetes Maternal Grandfather Patient Allergies ALLERGIES No Known Allergies Current Medications Current Outpatient Medications on File Prior to Visit Medication Sig aluminum chloride (DRYSOL) 20 % external solution Apply to affected area daily at bedtime. As needed citalopram hydrobromide (CELEXA) 10 mg tablet Take 1 tablet by mouth once daily. ciclopirox (LOPROX) 0.77 % cream Apply to affected area two times a day. No current facility-administered medications on file prior to visit. Social History Social History Tobacco Use Smoking status: Never Smokeless tobacco: Never Vaping Use Vaping status: Never Used Substance Use Topics Alcohol use: No Drug use: No EXAM: BP 126/74 Pulse 84 Resp 16 Ht 182.9 cm (6') Wt 121.9 kg (268 lb 11.9 oz) BMI 36.45 kg/m? General Appearance: Well appearing, alert, in no acute distress, well-hydrated, well nourished. and Overweight. Lungs: Lungs clear to auscultation. No wheezing, rhonchi, rales.. Heart: RRR without murmur, gallop, or rubs. No ectopy. Abdomen: Normal abdominal exam, Abdomen soft, non-tender. Bowel sounds normal. No masses, organomegaly. Hands: Normal exam, no swelling or tenderness; reports pain across dorsum of hands Health Maintenance List Depression Screening Never done Influenza Vaccine(1) due on 03/05/2025 Hepatitis C Screening due on 07/06/2025 HIV Screening due on 07/06/2025 Covid-19 Vaccine(2023- season) due on 07/06/2025 DTaP,Tdap,Td Vaccine(8 - Td or Tdap) due on 03/28/2031 Hepatitis B Vaccine Completed HPV Vaccine Addressed Data reviewed None ASSESSMENT/PLAN: 1. Wellness examination - ICD9: V70.0, ICD10: Z00.00 (primary diagnosis) - Counseled on healthy diet and regular exercise - Discussed need for and benefit of weight loss. BMI 36.45 kg/(m2) - Follow up for annual exam in one year 2. Excessive sweating - ICD9: 780.8, ICD10: R61 Stable Continue current medications. - DRYSOL DAB-O-MATIC 20 % TOPICAL SOLUTION 3. Anxiety - ICD9: 300.00, ICD10: F41.9 Stable Continue current medications. - CITALOPRAM 10 MG TABLET 4. Screening for depression - ICD9: V79.0, ICD10: Z13.31 - DEPRESSION SCREENING 5. Pain in both hands - ICD9: 729.5, ICD10: M79.641, M79.642 Over use Continue with stretches May use heat 6. Pain in both wrists - ICD9: 719.43, ICD10: M25.531, M25.532 Over use Continue with stretches May use heat Follow up in 1 year or sooner if needed. I agree with the Chief Complaint, ROS, and Past Histories independently gathered by the clinical sales support engineer and the remaining scribed note accurately describes my personal service to the patient. Emigdio Prince MD The documentation for this note was completed by Cherie Escamilla MA acting as (more content not included)... [facility] 07-04-2024 Telephone encounter Note The following approved medication requests have been transmitted electronically. Requested Prescriptions Pending Prescriptions Disp Refills aluminum chloride (DRYSOL) 20 % external solution 35 mL 0 Sig: Apply to affected area daily at bedtime. As needed Angel Grubbs APRN.CNP [facility] 07-04-2024 Miscellaneous Notes The following approved medication requests have been transmitted electronically. Requested Prescriptions Pending Prescriptions Disp Refills aluminum chloride (DRYSOL) 20 % external solution 35 mL 0 Sig: Apply to affected area daily at bedtime. As needed Angel Grubbs APRN.CNP Prescription Refill Information The patient has been identified by name and date of : Yes Caregiver verified no other encounters exist for this prescription request: Yes Caregiver confirmed with patient/requestor that no other refills are due, in the near future, with this provider at this time: Yes The last office visit in the department: 06/28/23 Does the patient have a future office visit with this provider/department: No My chart message sent Requested Prescriptions Pending Prescriptions Disp Refills aluminum chloride (DRYSOL) 20 % external solution 35 mL 0 Sig: Apply to affected area daily at bedtime. As needed Stefania Campos LPN July 03, 2024 2:59 PM documented in this encounter [facility] 07-03-2024 Telephone encounter Note Prescription Refill Information The patient has been identified by name and date of : Yes Caregiver verified no other encounters exist for this prescription request: Yes Caregiver confirmed with patient/requestor that no other refills are due, in the near future, with this provider at this time: No The last office visit in the department: 08/01/23 Does the patient have a future office visit with this provider/department: No Requested Prescriptions Pending Prescriptions Disp Refills citalopram hydrobromide (CELEXA) 10 mg tablet 90 tablet 3 Sig: Take 1 tablet by mouth once daily. Cherie Escamilla MA July 03, 2024 2:58 PM [facility] 07-03-2024 Telephone encounter Note Prescription Refill Information The patient has been identified by name and date of : Yes Caregiver verified no other encounters exist for this prescription request: Yes Caregiver confirmed with patient/requestor that no other refills are due, in the near future, with this provider at this time: Yes The last office visit in the department: 06/28/23 Does the patient have a future office visit with this provider/department: No My chart message sent Requested Prescriptions Pending Prescriptions Disp Refills aluminum chloride (DRYSOL) 20 % external solution 35 mL 0 Sig: Apply to affected area daily at bedtime. As needed Stefania Campos LPN July 03, 2024 2:59 PM [facility] 07-03-2024 Miscellaneous Notes Prescription Refill Information The patient has been identified by name and date of : Yes Caregiver verified no other encounters exist for this prescription request: Yes Caregiver confirmed with patient/requestor that no other refills are due, in the near future, with this provider at this time: No The last office visit in the department: 08/01/23 Does the patient have a future office visit with this provider/department: No Requested Prescriptions Pending Prescriptions Disp Refills citalopram hydrobromide (CELEXA) 10 mg tablet 90 tablet 3 Sig: Take 1 tablet by mouth once daily. Cherie Escamilla MA July 03, 2024 2:58 PM documented in this encounter [facility] 01-13-2024 Instructions Kay Davenport APRN.JOSUE - 01/13/2024 8:06 AM EDT ASSESSMENT/PLAN: 1. Dermatitis due to plants, including poison veronica, sumac, and oak - ICD9: 692.6, ICD10: L25.5 - Oral Steriod tx -Prednisone taper - discussed skin care of rash - follow up if symptoms persist or worsen. - PREDNISONE 10 MG TABLET - Follow-up with your PCP in 3-5 days if symptoms have not improved or sooner if symptoms worsen - Discussed red flags and need for immediate medical evaluation if any occur. - Discussed supportive care treatment with fluids, rest and analgesia. - Discussed expected course of illness Kay Davenport APRN.QUALITY CONTROL REPRESENTATIVE [facility] PATIENT INFO POISON VERONICA INTRODUCTION When the skin comes in direct contact with an irritating or allergy-causing substance, contact dermatitis can develop. Exposure to poison veronica, poison oak, and poison sumac cause more cases of allergic contact dermatitis than all other plant families combined. People of all ethnicities and skin types are at risk for developing poison veronica dermatitis. The severity of the reaction tends to decrease with age, especially in people who have had mild reactions in the past. People in occupations such as firefighting, forestry, and farming are at a higher risk of poison veronica dermatitis because of repeated exposure to toxic plants. POISON VERONICA CAUSES Poison veronica, poison oak, and poison sumac plants all contain a compound called urushiol, which is a light, colorless oil that is found on the fruit, leaves, stem, root, and sap of the plant. When urushiol is exposed to air, it turns brown and the plant leaves develop small black spots. There are several ways that you can be exposed to urushiol: By touching the sap or rubbing against the leaves of the toxic plant By touching something that has urushiol on it, such as animal fur or garden tools By breathing in smoke when toxic plants are burned Ginkgo fruit and the skin of mangoes also contain urushiol and can produce symptoms similar to poison veronica dermatitis. IDENTIFYING POISON VERONICA Leaves of three, let them be is a phrase often used to identify plants that cause poison veronica dermatitis. Generally, poison veronica and poison oak have three leaves with flowering branches on a single stem. Poison sumac has five, seven, or more leaves that angle upward toward the top of the stem. Some types of poison veronica produce a green or off-white fruit in pk, and in some cases, black dots form on the plants' leaves. It is not always possible to identify the plant by the leaves alone since the appearance can vary depending upon the season, growth cycle, region, and climate. Poison veronica, oak, and sumac plants grow in many areas across the [facility] and throughout the world. [place] of the [facility], poison veronica commonly grows as a climbing vine. In the [place] area and west, poison veronica tends to grow low to the ground as a shrub. Poison oak most often grows west of the [facility], and poison sumac inhabits boggy areas in the southeastern part of the [facility]. The plants are not usually found in areas at high elevations or in desert climates. POISON VERONICA SIGNS AND SYMPTOMS After contact with urushiol, approximately 50 percent of people develop signs and symptoms of poison veronica dermatitis. The symptoms and severity differ from person to person. The most common signs and symptoms of poison veronica dermatitis are: Intense itching Skin swelling Skin redness These symptoms usually develop within four hours to four days after exposure to the urushiol. After the initial symptoms, you will develop fluid-filled blisters in a line or streak-like pattern. The symptoms are worst within 1 to 14 days after touching the plant, but can develop up to 21 days later if you have never been exposed to urushiol before. The blisters can occur at different times in different people; blisters can develop on the arms several days after blisters on the hands developed. This does not mean that the reaction is spreading from one area of the body to the other. The fluid that leaks from blisters does not cause symptoms. Poison veronica dermatitis is not contagious and cannot be passed from person to person. However, urushiol can be carried under fingernails and on clothes; if another person comes in contact with the urushiol, they can develop poison veronica dermatitis. POISON VERONICA DIAGNOSIS Poison veronica is usually diagnosed based upon how your skin looks. Further testing is not usually necessary. POISON VERONICA TREATMENT Poison veronica dermatitis usually resolves within one to three weeks without treatment. Treatments that may help relieve the itching, soreness, and discomfort caused by poison veronica dermatitis include: Skin treatments -- For some people, adding oatmeal to a bath, applying cool wet compresses, and applying calamine lotion may help to relieve itching. Once the blisters begin weeping fluid, astringents containing aluminum acetate (Arturo's solution) and [place] may help to relieve the rash. Antihistamines -- Antihistamines may help to relieve itching caused by poison veronica dermatitis. Some antihistamines make you sleepy while others do not. Antihistamines that make you sleepy (eg, diphenhydramine [Benadryl ]) may be helpful if you have trouble sleeping due to itching. Other formulas (eg, loratadine [Claritin ], cetirizine [Zyrtec ]) may be preferable for daytime. Steroid creams -- Steroid creams may be helpful if they are used during the first few days after symptoms develop. Low potency steroid creams, such as 1 percent hydrocortisone (available in the [place] without prescription) are not usually helpful. A stronger prescription formula may be helpful. Steroids -- If you develop severe symptoms or the rash covers a large area (especially on the face or genitals), you may need steroid pills or injections (eg, prednisone) to help relieve itching and swelling. Pills are usually given for 14 to 21 days, with the dosage slowly decreased over time. Antibiotics -- Skin infections are a potential complication of poison veronica, especially if you scratch your skin. If you develop a skin infection because of poison veronica dermatitis, you may need antibiotics to treat the infection. Other treatments -- An herbal therapy called jewelweed extract has been used to treat poison veronica dermatitis, although it has not been proven effective. You should not use antihistamine creams or lotions, anesthetic creams containing benzocaine, or antibiotic creams containing neomycin or bacitracin to the skin. These creams or ointments could make the rash worse. POISON VERONICA PREVENTION The best way to prevent poison veronica dermatitis is to identify and avoid the plants that cause it. These plants can irritate the skin year round, even during the winter months, and can still cause a reaction years after the plant dies. Wear protective clothing, including long sleeves and pants when working in areas where toxic plants may be found. Keep in mind that the resin and oils from the toxic plants can be carried on clothing, pets, and under fingernails. Wear heavy-duty vinyl gloves when doing yard work or gardening. The oils from toxic plants can seep through latex or rubber gloves. After coming in contact with poison veronica, remove any contaminated clothing and gently wash (do not scrub or rub) you skin and under the fingernails with mild soap and water as soon as possible. Washing within two hours after exposure can reduce the likelihood and severity of symptoms; washing the skin after you have symptoms will not help. Creams and ointments that create a barrier between the skin and the urushiol oil may be somewhat effective for people who are frequently exposed to poison veronica. Bentoquatam (Veronica Block ) is one type of barrier cream that may prevent poison veronica dermatitis. It must be reapplied every four hours and it leaves a nathaniel residue on the skin. Avoid burning poisonous vegetation, which can disperse the plant particles in the smoke, irritate the skin, and cause poison veronica dermatitis. documented in this encounter [facility] 01-13-2024 Note HNO ID: [id number] Author: KAY DAVENPORT APRN.JOSUE Service: ? Author Type: Nurse Practitioner Type: Progress Notes Filed: 01/13/2024 08:06 Note Text: Subjective Rash Pertinent negatives include no fever. Ricky Mercer is a 28 year old male who presents with a rash on bilateral arms. Has been present for 10 days. He has been using OTC hydrocortisone cream without relief. Denies fever or chills. Rash it itchy and he is getting new areas of rash. He denies pain. Review of Systems Constitutional: Negative for chills and fever. Respiratory: Negative. Cardiovascular: Negative. Musculoskeletal: Negative for myalgias. Skin: Positive for itching and rash. BP 136/77 Pulse 78 Temp 36.4 ?C (97.6 ?F) Resp 18 Wt 122 kg (268 lb 15.4 oz) SpO2 97% BMI 38.59 kg/m? PAST MEDICAL HISTORY Diagnosis Date Asthma Generalized anxiety disorder PAST SURGICAL HISTORY Procedure Laterality Date LIPOMA (SMALL) 12/10/2023 left side of head PAST SURGICAL HISTORY OF Right 2012, 2014 Right knee surgery ALLERGIES Patient has no known allergies. MEDICATIONS predniSONE (DELTASONE) 10 mg tablet Take 4 tabs daily for 3 days, then 2 tabs daily for 3 days, then 1 tab daily for 3 days with food. ciclopirox (LOPROX) 0.77 % cream Apply to affected area two times a day. citalopram hydrobromide (CELEXA) 10 mg tablet Take 1 tablet by mouth once daily. aluminum chloride (DRYSOL) 20 % external solution Apply to affected area daily at bedtime. As needed FAMILY HISTORY Problem Relation Age of Onset other (Anxiety) Mother other (Anxiety) Sister other (Anxiety) Brother Heart Maternal Grandmother Diabetes Maternal Grandfather Social History Tobacco Use Smoking status: Never Smokeless tobacco: Never Vaping Use Vaping Use: Never used Substance Use Topics Alcohol use: No Drug use: No Objective Physical Exam Vitals and nursing note reviewed. Constitutional: Appearance: Normal appearance. Cardiovascular: Rate and Rhythm: Normal rate and regular rhythm. Heart sounds: Normal heart sounds. Pulmonary: Effort: Pulmonary effort is normal. No respiratory distress. Breath sounds: Normal breath sounds. No wheezing or rales. Skin: General: Skin is warm and dry. Findings: Erythema and rash present. Neurological: Mental Status: He is alert. ASSESSMENT/PLAN: 1. Dermatitis due to plants, including poison veronica, sumac, and oak - ICD9: 692.6, ICD10: L25.5 - Oral Steriod tx -Prednisone taper - discussed skin care of rash - follow up if symptoms persist or worsen. - PREDNISONE 10 MG TABLET - Follow-up with your PCP in 3-5 days if symptoms have not improved or sooner if symptoms worsen - Discussed red flags and need for immediate medical evaluation if any occur. - Discussed supportive care treatment with fluids, rest and analgesia. - Discussed expected course of illness Kay Davenport APRN.[facility] 01-13-2024 History of Presen t illness Narrative Images from the original note were not included. Subjective Rash Pertinent negatives include no fever. Ricky Mercer is a 28 year old male who presents with a rash on bilateral arms. Has been present for 10 days. He has been using OTC hydrocortisone cream without relief. Denies fever or chills. Rash it itchy and he is getting new areas of rash. He denies pain. Review of Systems Constitutional: Negative for chills and fever. Respiratory: Negative. Cardiovascular: Negative. Musculoskeletal: Negative for myalgias. Skin: Positive for itching and rash. BP 136/77 Pulse 78 Temp 36.4 C (97.6 F) Resp 18 Wt 122 kg (268 lb 15.4 oz) SpO2 97% BMI 38.59 kg/m PAST MEDICAL HISTORY Diagnosis Date Asthma Generalized anxiety disorder PAST SURGICAL HISTORY Procedure Laterality Date LIPOMA (SMALL) 12/10/2023 left side of head PAST SURGICAL HISTORY OF Right 2012, 2014 Right knee surgery ALLERGIES Patient has no known allergies. MEDICATIONS predniSONE (DELTASONE) 10 mg tablet Take 4 tabs daily for 3 days, then 2 tabs daily for 3 days, then 1 tab daily for 3 days with food. ciclopirox (LOPROX) 0.77 % cream Apply to affected area two times a day. citalopram hydrobromide (CELEXA) 10 mg tablet Take 1 tablet by mouth once daily. aluminum chloride (DRYSOL) 20 % external solution Apply to affected area daily at bedtime. As needed FAMILY HISTORY Problem Relation Age of Onset other (Anxiety) Mother other (Anxiety) Sister other (Anxiety) Brother Heart Maternal Grandmother Diabetes Maternal Grandfather Social History Tobacco Use Smoking status: Never Smokeless tobacco: Never Vaping Use Vaping Use: Never used Substance Use Topics Alcohol use: No Drug use: No Objective Physical Exam Vitals and nursing note reviewed. Constitutional: Appearance: Normal appearance. Cardiovascular: Rate and Rhythm: Normal rate and regular rhythm. Heart sounds: Normal heart sounds. Pulmonary: Effort: Pulmonary effort is normal. No respiratory distress. Breath sounds: Normal breath sounds. No wheezing or rales. Skin: General: Skin is warm and dry. Findings: Erythema and rash present. Neurological: Mental Status: He is alert. ASSESSMENT/PLAN: 1. Dermatitis due to plants, including poison veronica, sumac, and oak - ICD9: 692.6, ICD10: L25.5 - Oral Steriod tx -Prednisone taper - discussed skin care of rash - follow up if symptoms persist or worsen. - PREDNISONE 10 MG TABLET - Follow-up with your PCP in 3-5 days if symptoms have not improved or sooner if symptoms worsen - Discussed red flags and need for immediate medical evaluation if any occur. - Discussed supportive care treatment with fluids, rest and analgesia. - Discussed expected course of illness Kay Davenport APRN.QUALITY CONTROL REPRESENTATIVE documented in this encounter [facility] 01-03-2024 History of Presen t illness Narrative FOLLOW UP VISIT NAME: Ricky Mercer [facility] NO.: [id number] DATE OF SERVICE: 01/03/2024 : 1995 REFERRING PHYSICIAN: Emigdio Prince MD Ricky is status post excision of posterior left ear lesion done on 12/10/2023 Pathology reveals: FINAL DIAGNOSIS Soft tissue, posterior left ear, excision: - Lipoma. Patient denies any problems VITALS: Blood pressure 128/88, pulse 91, temperature 36.2 C (97.1 F), height 177.8 cm (5' 10), weight 120.7 kg (266 lb), SpO2 97%. On examination, wound is well healed with no evidence of infection Assessment IMPRESSION: status post excision of lipoma PLAN: Patient is instructed to make an appointment to return to clinic if any worsening signs/symptoms. Patient will return to his PCP for medical care. Patient acknowledges above. Diagnoses: (Z98.890) Status post skin and subcutaneous tissue surgery (primary encounter diagnosis) I have confirmed and edited as necessary, the PFS and ROS obtained by others. Mindy Jones MD documented in this encounter [facility] 01-03-2024 Note HNO ID: [id number] Author: MINDY JONES MD Service: ? Author Type: Physician Type: Progress Notes Filed: 01/04/2024 07:48 Note Text: FOLLOW UP VISIT NAME: Ricky Farnsworthnmtamera [facility] NO.: [id number] DATE OF SERVICE: 01/03/2024 : 1995 REFERRING PHYSICIAN: Emigdio Prince MD Ricky is status post excision of posterior left ear lesion done on 12/10/2023 Pathology reveals: FINAL DIAGNOSIS Soft tissue, posterior left ear, excision: - Lipoma. Patient denies any problems VITALS: Blood pressure 128/88, pulse 91, temperature 36.2 ?C (97.1 ?F), height 177.8 cm (5' 10), weight 120.7 kg (266 lb), SpO2 97%. On examination, wound is well healed with no evidence of infection Assessment IMPRESSION: status post excision of lipoma PLAN: Patient is instructed to make an appointment to return to clinic if any worsening signs/symptoms. Patient will return to his PCP for medical care. Patient acknowledges above. Diagnoses: (Z98.890) Status post skin and subcutaneous tissue surgery (primary encounter diagnosis) I have confirmed and edited as necessary, the PFSH and ROS obtained by others. Mindy Jones MD [facility] 12-10-2023 Nurse Note Pt arrived to phase 2. Awake, denies pain/ nausea. Snack and drink offered and taken. SR up x 2, call light in reach. Rakel Lancaster, RN Summary: Equipment details for [employer] used during procedure Settings: Cut 30, COAG 30 Electrode patient pad placed on right, lateral thigh. PAD lot #: [id number] Expiration Date: 05/06/2025 Pad placed by: RICH Negro Settings/equipment was not found under appropriate section in intra-op tab. RICH Negro documented in this encounter [facility] 12-10-2023 Surgical operatio n note BRIEF OPERATIVE NOTE SURGERY DATE: 12/10/2023 Incision/Procedure Start Time: 11:31 Incision Close/Procedure End Time: 12:03 Surgeon(s)/Proceduralist(s) and Nuclear Control Operator(s): Robert Procedures: Excision of mass of left posterior ear Anesthesia: Local - 1% xylocaine with epinephrine Findings: lipomatous mass of left posterior ear Estimated Blood Loss: minimal Specimens: left posterior ear mass Complications: None Closure Technique: Primary Preop Diagnosis: mass posterior left ear Postop Diagnosis: same SIGNATURE: Mindy Jones MD PATIENT NAME: Ricky Mercer DATE: December 10, 2023 TIME: 12:05 PM Acct: [id number] documented in this encounter [facility] 12-10-2023 History and physical note UPDATED HISTORY AND PHYSICAL EXAMINATION SERVICE DATE: 12/10/2023 SERVICE TIME: 10:50 PHYSICAL EXAM MUST BE COMPLETED ON ADMISSION The History and Physical (completed in the past 30 days) has been reviewed and the patient has been examined. The contents accurately reflect the patient's condition with the following additions or revisions since the H&P was completed. Examination indicates no changes. This H&P can be found in the Electronic Medical Record. SIGNATURE: Mindy Jones MD PATIENT NAME: Ricky Jitamera DATE: December 10, 2023 TIME: 10:50 AM Source Note - Mindy Jones MD - 12/09/2023 5:05 PM EDT HISTORY AND PHYSICAL Ricky Mercer 1995 REFERRING PHYSICIAN: Emigdio Prince MD CHIEF COMPLAINT: Consult (Cyst on left side of head behind ear, has gotten bigger over the last year. ) HPI: The patient is a 28 year old male presents with subcutaneous mass noted behind left ear. It is along the scalp edge - hair bearing. He has noted this lesion for the past year, but it is increasing in size and subsequently has become more tender. He notes no drainage in the area. He denies trauma to the area. He denies any recent scalp infections or ear infections. PAST MEDICAL HISTORY PAST MEDICAL HISTORY Diagnosis Date Asthma Generalized anxiety disorder PAST SURGICAL HISTORY PAST SURGICAL HISTORY Procedure Laterality Date PAST SURGICAL HISTORY OF Right 2012, 2014 Right knee surgery CURRENT MEDICATIONS Current Outpatient Medications Medication Sig ciclopirox (LOPROX) 0.77 % cream Apply to affected area two times a day. citalopram hydrobromide (CELEXA) 10 mg tablet Take 1 tablet by mouth once daily. aluminum chloride (DRYSOL) 20 % external solution Apply to affected area daily at bedtime. As needed No current facility-administered medications for this visit. ALLERGIES: Patient has no known allergies. PERSONAL HISTORY: SOCIAL HISTORY Social History Tobacco Use Smoking status: Never Smokeless tobacco: Never Vaping Use Vaping Use: Never used Substance Use Topics Alcohol use: No Drug use: No FAMILY HISTORY FAMILY HISTORY Problem Relation Age of Onset other (Anxiety) Mother other (Anxiety) Sister other (Anxiety) Brother Heart Maternal Grandmother Diabetes Maternal Grandfather REVIEW OF SYSTEMS: General: The patient denies fatigue, denies weight loss, denies weight gain, denies feeling hot, and denies feelings of cold. Eyes: The patient denies glaucoma, denies eye injury/surgery, wears glasses or contacts. Ear/Nose/Throat: The patient denies allergies, denies hayfever, denies ear infections, and denies bloody noses. Cardiovascular: The patient denies chest pain, denies heart disease, denies high blood pressure,denies cardiac stent, denies prior heart attack, denies irregular heart beat, denies high cholesterol, denies poor circulation, denies heart failure, other cardiac issues, denies claudication, denies cold feet, denies peripheral arterial stent. Respiratory: The patient denies tuberculosis, denies pneumonia, denies frequent cough, denies pulmonary embolism, denies shortness of breath, and denies coughing up blood, notes asthma Gastrointestinal: The patient denies difficulty swallowing, denies acid reflux, denies ulcers, denies vomiting, denies jaundice/hepatitis, denies gallbladder problems, denies black or tarry stools, denies hemorrhoids, denies bleeding from rectum, denies diverticulitis, denies constipation, denies diarrhea, denies loss of stool control, and denies hernias. Kidney/Bladder: The patient denies kidney stones, denies urine infections, and denies bloody urine. Skin: The patient denies a history of skin cancer, denies bleeding/changing moles, and denies a history of skin rash. Neurologic: The patient denies a history of epilepsy/convulsions, denies headaches, denies head/spinal injuries, and denies stroke/TIA. Psychiatric: The patient denies psychiatric medications, denies depression, and denies voices, denies substance abuse. Endocrine: The patient denies thyroid disorders, denies diabetes, and denies hormonal problems. Hematologic: The patient denies a history of bruising, denies bleeding, and denies anemia, denies blood clots. Infections: The patient denies a history of measles and mumps, denies rheumatic fever, and denies sexually transmitted diseases. Musculoskeletal: The patient denies back pain/injury, denies back problems, denies sciatica, notes knee/foot trouble, denies arthritis, or denies gout. When was patient's last Mammogram screening? N/A Last Colonoscopy: none Logan Washington LPN PHYSICAL EXAMINATION: General: The patient is 28 year old male, well nourished, well hydrated in no acute distress. The patient is oriented to time, place, and person. VITALS: Blood pressure 158/78, pulse 91, temperature 36.2 C (97.2 F), height 177.8 cm (5' 10), weight 122.2 kg (269 lb 6.4 oz), SpO2 94%. Body mass index is 38.65 kg/m . Head: Normal cephalic, atraumatic Eyes: pupils are equally round, sclera are clear/anicteric Neck is supple with no tracheal deviation Cardiac: normal heart sounds, regular Respiratory: Normal respiratory excursion and pattern. Abdominal exam: benign Extremities: no clubbing, cyanosis or edema. Neuro: non focal Psych: normal mood IMPRESSION: localized mass behind left ear PLAN: I have discussed the above with the patient. I have offered excision of posterior left ear mass. I have explained the procedure to the patient. To be done using local anesthesia at [facility] I have counseled the patient as to the risks of the procedure, including but not limited to: infection, bleeding, injury to any blood vessels/nerves, scar tissue, injury to any intrabdominal organs, injury to bowel/bladder, wound infections, complications of anesthesia, etc. - the patient understands. The patient wishes to proceed. I have answered all questions to the patient s satisfaction and the patient has no further questions. HISTORY AND PHYSICAL Ricky Mercer 1995 REFERRING PHYSICIAN: Emigdio Prince MD CHIEF COMPLAINT: Consult (Cyst on left side of head behind ear, has gotten bigger over the last year. ) HPI: The patient is a 28 year old male presents with subcutaneous mass noted behind left ear. It is along the scalp edge - hair bearing. He has noted this lesion for the past year, but it is increasing in size and subsequently has become more tender. He notes no drainage in the area. He denies trauma to the area. He denies any recent scalp infections or ear infections. PAST MEDICAL HISTORY PAST MEDICAL HISTORY Diagnosis Date Asthma Generalized anxiety disorder PAST SURGICAL HISTORY PAST SURGICAL HISTORY Procedure Laterality Date PAST SURGICAL HISTORY OF Right 2012, 2014 Right knee surgery CURRENT MEDICATIONS Current Outpatient Medications Medication Sig ciclopirox (LOPROX) 0.77 % cream Apply to affected area two times a day. citalopram hydrobromide (CELEXA) 10 mg tablet Take 1 tablet by mouth once daily. aluminum chloride (DRYSOL) 20 % external solution Apply to affected area daily at bedtime. As needed No current facility-administered medications for this visit. ALLERGIES: Patient has no known allergies. PERSONAL HISTORY: SOCIAL HISTORY Social History Tobacco Use Smoking status: Never Smokeless tobacco: Never Vaping Use Vaping Use: Never used Substance Use Topics Alcohol use: No Drug use: No FAMILY HISTORY FAMILY HISTORY Problem Relation Age of Onset other (Anxiety) Mother other (Anxiety) Sister other (Anxiety) Brother Heart Maternal Grandmother Diabetes Maternal Grandfather REVIEW OF SYSTEMS: General: The patient denies fatigue, denies weight loss, denies weight gain, denies feeling hot, and denies feelings of cold. Eyes: The patient denies glaucoma, denies eye injury/surgery, wears glasses or contacts. Ear/Nose/Throat: The patient denies allergies, denies hayfever, denies ear infections, and denies bloody noses. Cardiovascular: The patient denies chest pain, denies heart disease, denies high blood pressure,denies cardiac stent, denies prior heart attack, denies irregular heart beat, denies high cholesterol, denies poor circulation, denies heart failure, other cardiac issues, denies claudication, denies cold feet, denies peripheral arterial stent. Respiratory: The patient denies tuberculosis, denies pneumonia, denies frequent cough, denies pulmonary embolism, denies shortness of breath, and denies coughing up blood, notes asthma Gastrointestinal: The patient denies difficulty swallowing, denies acid reflux, denies ulcers, denies vomiting, denies jaundice/hepatitis, denies gallbladder problems, denies black or tarry stools, denies hemorrhoids, denies bleeding from rectum, denies diverticulitis, denies constipation, denies diarrhea, denies loss of stool control, and denies hernias. Kidney/Bladder: The patient denies kidney stones, denies urine infections, and denies bloody urine. Skin: The patient denies a history of skin cancer, denies bleeding/changing moles, and denies a history of skin rash. Neurologic: The patient denies a history of epilepsy/convulsions, denies headaches, denies head/spinal injuries, and denies stroke/TIA. Psychiatric: The patient denies psychiatric medications, denies depression, and denies voices, denies substance abuse. Endocrine: The patient denies thyroid disorders, denies diabetes, and denies hormonal problems. Hematologic: The patient denies a history of bruising, denies bleeding, and denies anemia, denies blood clots. Infections: The patient denies a history of measles and mumps, denies rheumatic fever, and denies sexually transmitted diseases. Musculoskeletal: The patient denies back pain/injury, denies back problems, denies sciatica, notes knee/foot trouble, denies arthritis, or denies gout. When was patient's last Mammogram screening? N/A Last Colonoscopy: none Logan WashingtonHEAVEN PHYSICAL EXAMINATION: General: The patient is 28 year old male, well nourished, well hydrated in no acute distress. The patient is oriented to time, place, and person. VITALS: Blood pressure 158/78, pulse 91, temperature 36.2 C (97.2 F), height 177.8 cm (5' 10), weight 122.2 kg (269 lb 6.4 oz), SpO2 94%. Body mass index is 38.65 kg/m . Head: Normal cephalic, atraumatic Eyes: pupils are equally round, sclera are clear/anicteric Neck is supple with no tracheal deviation Cardiac: normal heart sounds, regular Respiratory: Normal respiratory excursion and pattern. Abdominal exam: benign Extremities: no clubbing, cyanosis or edema. Neuro: non focal Psych: normal mood IMPRESSION: localized mass behind left ear PLAN: I have discussed the above with the patient. I have offered excision of posterior left ear mass. I have explained the procedure to the patient. To be done using local anesthesia at [facility] I have counseled the patient as to the risks of the procedure, including but not limited to: infection, bleeding, injury to any blood vessels/nerves, scar tissue, injury to any intrabdominal organs, injury to bowel/bladder, wound infections, complications of anesthesia, etc. - the patient understands. The patient wishes to proceed. I have answered all questions to the patient s satisfaction and the patient has no further questions. documented in this encounter [facility] 11-08-2023 Telephone encounter Note 12/20/2023 [facility] 11-08-2023 Miscellaneous Notes 12/20/2023 [facility] documented in this encounter [facility] 11-05-2023 Instructions Mindy Jones MD - 11/05/2023 3:10 PM EST No solid food 6 hours prior to procedure Only sips of water up until 2 hours prior to procedure You do not require a escort car driver for this procedure Tentative date: December 10, 2023 Arrival time: (tentative) 11:00 documented in this encounter [facility] 11-05-2023 History of Presen t illness Narrative HISTORY AND PHYSICAL Ricky Mercer 1995 REFERRING PHYSICIAN: Emigdio Prince MD CHIEF COMPLAINT: Consult (Cyst on left side of head behind ear, has gotten bigger over the last year. ) HPI: The patient is a 28 year old male presents with subcutaneous mass noted behind left ear. It is along the scalp edge - hair bearing. He has noted this lesion for the past year, but it is increasing in size and subsequently has become more tender. He notes no drainage in the area. He denies trauma to the area. He denies any recent scalp infections or ear infections. PAST MEDICAL HISTORY Diagnosis Date Asthma Generalized anxiety disorder PAST SURGICAL HISTORY Procedure Laterality Date PAST SURGICAL HISTORY OF Right 2012, 2015 Right knee surgery Current Outpatient Medications Medication Sig ciclopirox (LOPROX) 0.77 % cream Apply to affected area two times a day. citalopram hydrobromide (CELEXA) 10 mg tablet Take 1 tablet by mouth once daily. aluminum chloride (DRYSOL) 20 % external solution Apply to affected area daily at bedtime. As needed No current facility-administered medications for this visit. ALLERGIES: Patient has no known allergies. PERSONAL HISTORY: Social History Tobacco Use Smoking status: Never Smokeless tobacco: Never Vaping Use Vaping Use: Never used Substance Use Topics Alcohol use: No Drug use: No FAMILY HISTORY Problem Relation Age of Onset other (Anxiety) Mother other (Anxiety) Sister other (Anxiety) Brother Heart Maternal Grandmother Diabetes Maternal Grandfather The review of systems data was entered by the nurse and reviewed by ar Nursing Notes: Logan Washington LPN 11/05/2023 3:04 PM Signed REVIEW OF SYSTEMS: General: The patient denies fatigue, denies weight loss, denies weight gain, denies feeling hot, and denies feelings of cold. Eyes: The patient denies glaucoma, denies eye injury/surgery, wears glasses or contacts. Ear/Nose/Throat: The patient denies allergies, denies hayfever, denies ear infections, and denies bloody noses. Cardiovascular: The patient denies chest pain, denies heart disease, denies high blood pressure,denies cardiac stent, denies prior heart attack, denies irregular heart beat, denies high cholesterol, denies poor circulation, denies heart failure, other cardiac issues, denies claudication, denies cold feet, denies peripheral arterial stent. Respiratory: The patient denies tuberculosis, denies pneumonia, denies frequent cough, denies pulmonary embolism, denies shortness of breath, and denies coughing up blood, notes asthma Gastrointestinal: The patient denies difficulty swallowing, denies acid reflux, denies ulcers, denies vomiting, denies jaundice/hepatitis, denies gallbladder problems, denies black or tarry stools, denies hemorrhoids, denies bleeding from rectum, denies diverticulitis, denies constipation, denies diarrhea, denies loss of stool control, and denies hernias. Kidney/Bladder: The patient denies kidney stones, denies urine infections, and denies bloody urine. Skin: The patient denies a history of skin cancer, denies bleeding/changing moles, and denies a history of skin rash. Neurologic: The patient denies a history of epilepsy/convulsions, denies headaches, denies head/spinal injuries, and denies stroke/TIA. Psychiatric: The patient denies psychiatric medications, denies depression, and denies voices, denies substance abuse. Endocrine: The patient denies thyroid disorders, denies diabetes, and denies hormonal problems. Hematologic: The patient denies a history of bruising, denies bleeding, and denies anemia, denies blood clots. Infections: The patient denies a history of measles and mumps, denies rheumatic fever, and denies sexually transmitted diseases. Musculoskeletal: The patient denies back pain/injury, denies back problems, denies sciatica, notes knee/foot trouble, denies arthritis, or denies gout. When was patient's last Mammogram screening? N/A Last Colonoscopy: none Logan Washington, ENG[employer] PHYSICAL EXAMINATION: General: The patient is 28 year old male, well nourished, well hydrated in no acute distress. The patient is oriented to time, place, and person. VITALS: Blood pressure 158/78, pulse 91, temperature 36.2 C (97.2 F), height 177.8 cm (5' 10), weight 122.2 kg (269 lb 6.4 oz), SpO2 94%. Body mass index is 38.65 kg/m . Head: Normal cephalic, atraumatic Eyes: pupils are equally round, sclera are clear/anicteric Neck is supple with no tracheal deviation Cardiac: normal heart sounds, regular Respiratory: Normal respiratory excursion and pattern. Abdominal exam: benign Extremities: no clubbing, cyanosis or edema. Neuro: non focal Psych: normal mood Assessment IMPRESSION: localized mass behind left ear PLAN: I have discussed the above with the patient. I have offered excision of posterior left ear mass. I have explained the procedure to the patient. To be done using local anesthesia at [facility] I have counseled the patient as to the risks of the procedure, including but not limited to: infection, bleeding, injury to any blood vessels/nerves, scar tissue, injury to any intrabdominal organs, injury to bowel/bladder, wound infections, complications of anesthesia, etc. - the patient understands. The patient wishes to proceed. I have answered all questions to the patient s satisfaction and the patient has no further questions. Diagnoses: (R22.9) Localized mass I have confirmed and edited as necessary, the PFSH and ROS obtained by others. Consultation requested by Dr. Emigdio Prince for an opinion regarding patient's mass behind the left ear. My final recommendations will be communicated back to the requesting physician by way of shared Medical record or letter to requesting physician via [place] mail. I spent a total of 28 minutes on the date of the service which included preparing to see the patient with review of any pertinent laboratory studies/radiological imaging/medical records, [id number] patient care, obtaining oral medical history from the patient in this encounter, performing a medically appropriate examination, counseling and educating the patient/family/caregiver, and ordering and/or scheduling of medications/tests/procedures, and completing appropriate medical documentation. Mindy Jones MD documented in this encounter [facility] 11-05-2023 Nurse Note REVIEW OF SYSTEMS: General: The patient denies fatigue, denies weight loss, denies weight gain, denies feeling hot, and denies feelings of cold. Eyes: The patient denies glaucoma, denies eye injury/surgery, wears glasses or contacts. Ear/Nose/Throat: The patient denies allergies, denies hayfever, denies ear infections, and denies bloody noses. Cardiovascular: The patient denies chest pain, denies heart disease, denies high blood pressure,denies cardiac stent, denies prior heart attack, denies irregular heart beat, denies high cholesterol, denies poor circulation, denies heart failure, other cardiac issues, denies claudication, denies cold feet, denies peripheral arterial stent. Respiratory: The patient denies tuberculosis, denies pneumonia, denies frequent cough, denies pulmonary embolism, denies shortness of breath, and denies coughing up blood, notes asthma Gastrointestinal: The patient denies difficulty swallowing, denies acid reflux, denies ulcers, denies vomiting, denies jaundice/hepatitis, denies gallbladder problems, denies black or tarry stools, denies hemorrhoids, denies bleeding from rectum, denies diverticulitis, denies constipation, denies diarrhea, denies loss of stool control, and denies hernias. Kidney/Bladder: The patient denies kidney stones, denies urine infections, and denies bloody urine. Skin: The patient denies a history of skin cancer, denies bleeding/changing moles, and denies a history of skin rash. Neurologic: The patient denies a history of epilepsy/convulsions, denies headaches, denies head/spinal injuries, and denies stroke/TIA. Psychiatric: The patient denies psychiatric medications, denies depression, and denies voices, denies substance abuse. Endocrine: The patient denies thyroid disorders, denies diabetes, and denies hormonal problems. Hematologic: The patient denies a history of bruising, denies bleeding, and denies anemia, denies blood clots. Infections: The patient denies a history of measles and mumps, denies rheumatic fever, and denies sexually transmitted diseases. Musculoskeletal: The patient denies back pain/injury, denies back problems, denies sciatica, notes knee/foot trouble, denies arthritis, or denies gout. When was patient's last Mammogram screening? N/A Last Colonoscopy: none Logan Washington LPN documented in this encounter [facility] 10-21-2023 Miscellaneous Notes Pt notified via Frilp. Advised to call in and schedule. Cherie Escamilla Ma OK to refer to Surg for evaluation of sebaceous cyst Emigdio Prince MD documented in this encounter [facility] 10-21-2023 Miscellaneous Notes See Frilp message. Cherie Escamilla Ma documented in this encounter [facility] 08-01-2023 Instructions Ani Gonzalez APRN.[facility] - 08/01/2023 11:53 AM EST Acute Sinusitis Each of us has four paired cavities (spaces) in our head that are connected to the nose by narrow channels. These cavities, known as sinuses, produce thin mucus that drains out of the channels of the nose. This drainage helps keep the nose clean and free of particles and bacteria. Normally, sinuses are filled with air. But when sinuses become blocked and filled with fluid, bacteria can grow and cause an infection (bacterial sinusitis). Conditions that cause sinus blockage include: the common cold allergic rhinitis (swelling of the lining of the nose due to allergies) nasal polyps (small growths in the lining of the nose), or a deviated septum (the wall between the left and right nostril is crooked). Allergies, such as hay fever, can also cause swelling and poor drainage of the sinuses. One confusing factor to consider is that many people with sinus headaches are actually suffering from migraines. In fact, in large clinical studies, up to 90% of people who reported sinus headaches were diagnosed with migraines instead. Migraines can cause headaches in combination with facial pressure over the sinuses, a runny nose, and nasal congestion. If you have symptoms that involve the sinuses, it may be difficult to tell if you have sinusitis, a cold, nasal allergy, or even a migraine. This article will describe the symptoms, diagnosis, and treatment of sinusitis, and how to tell the difference between sinusitis, cold, migraines, and nasal allergy. What is sinusitis? Sinusitis is an inflammation, or swelling, of the tissue lining the sinuses. There are two types of sinusitis: Acute bacterial sinusitis: a sudden onset of cold symptoms such as runny nose, stuffy nose, and facial pain that does not go away after 10 days, or symptoms that seem to begin improving but return worse than the initial symptoms. It responds well to antibiotics and decongestants. Chronic sinusitis: a condition defined by nasal congestion, drainage, facial pain/pressure, and decreased sense of smell for at least 12 weeks. Who gets sinusitis? Every year, approximately 1 billion Americans have at least one episode of viral sinusitis. About 37 million will develop a bacterial sinusitis. People who have the following conditions have a higher risk of sinusitis: Nasal mucus membrane swelling, as from a common cold or allergies Blockage of drainage ducts, leading to trapping of mucus Structure differences that narrow the drainage ducts Conditions that result in an increased risk of infection Polyps (growths) In children, common factors in the environment that contribute to sinusitis include allergies, illness from other children at day care or school, and smoke in the environment. In adults, the contributing factors are most frequently viral infections, allergies, and smoking. What are the signs and symptoms of acute sinusitis? The primary symptoms of acute sinusitis include: Facial pain/pressure/tenderness Nasal stuffiness Nasal discharge (thick yellow or green discharge from nose), especially if it is long-lasting Loss of smell and taste Cough/congestion Additional symptoms may include: Fever of 102 or higher Ear pain Headache Bad breath Fatigue Ache in upper jaw and teeth How is sinusitis diagnosed? To diagnose sinusitis, your doctor will discuss your symptoms and examine your nose for swelling and drainage. Your personal history is most important in diagnosing sinusitis. A physical exam of the ears, nose, and throat is performed to look for signs of obstruction (blockage) or infection. An endoscope (a small lighted/optical instrument) may be used to look inside the nose. In general, X-rays or CT scans do not play any role in the diagnosis of acute sinusitis. Some patients may have conditions that may need to be referred to a specialist, such as an ear, nose, and throat (ENT) physician. Additional diagnostic tests may be needed. Tests for these more complicated cases may include cultures, allergy testing, CT scan of the sinuses, or nasal endoscopy. Nasal endoscopy allows doctors to look directly inside the nose to see sinus drainage pathways. How is sinusitis treated? Acute sinusitis. If you have a simple sinusitis infection, your health care provider may recommend treatment with decongestants like Sudafed and [id number] medications for cold and allergy, nasal saline irrigation, and drinking fluids (as most sinusitis is viral). If symptoms do not improve after at least 10 days, if the symptoms seem to be getting worse, or if medications for cold or allergy do not improve symptoms, a bacterial infection may be causing the sinusitis. In this case, antibiotics are given for 7 days in adults and 10 days in children. Antibiotics should improve symptoms within 48 hours. Oral or topical decongestants may be prescribed to relieve symptoms. Use of prescription intranasal steroid sprays might be added to help control symptoms. However, non-prescription drops or sprays should not be used beyond 5 days -- or they may actually increase congestion. Chronic sinusitis. Treating chronic sinusitis begins with controlling the underlying condition, which is most often allergies. Standard treatments include intranasal steroid sprays, topical antihistamine sprays, or antihistamine pills, and leukotriene antagonists such as montelukast. Often you will be encouraged to rinse the nose with saline irrigations. Sometimes medications may be added to these irrigations. If sinusitis is not controlled, the next step is a CT scan of the sinuses. This allows for a direct view of the nose and surrounding sinuses. Based upon CT findings, surgery may be recommended. Will I need to make lifestyle changes? If you have indoor allergies, avoiding triggers -- such as animal dander and dust mites - is recommended in addition to medications. Smoking is never recommended, but if you do smoke, strongly consider a program to help you stop smoking, as this may be the main reason you have sinus infections. No special diet is required, but drinking extra fluids helps to thin nasal secretions. What are the symptoms of the common cold? An upper respiratory infection (the common cold) is usually caused by a virus that infects the nose and throat. Most upper respiratory infections are not bacterial and do not respond to antibiotics. A cold may cause swelling in the sinuses, preventing the outflow of mucus. Cold symptoms include nasal congestion, runny nose, post-nasal drip (syba-fg-[id number] release of nasal fluid into the back of the throat), headache, achiness, and fatigue. Cough and fever may also go along with these symptoms. Cold symptoms usually build, peak, and slowly disappear. No treatment is necessary for a cold, but some medications can ease symptoms. For example, decongestants may decrease drainage and open the nasal passages. Analgesics (pain relievers) may help with fever and headache. Cough medication may help, as well. Colds will typically last from a few days to about a week. What is the harm in getting an antibiotic for a common cold? Viral infections like the common cold are not cured by antibiotics. Taking an antibiotic for a viral infection unnecessarily puts you at risk for side effects related to the antibiotic. In addition, the overuse of antibiotics leads to antibiotic resistance, which may make future infections more difficult to treat. Finally, the use of inappropriate medication increases health care costs unnecessarily. What are the symptoms of nasal allergy? Symptoms of nasal allergy include: Sneezing Itchy nose Clear, watery nasal discharge Nasal blockage Feeling fatigued How is nasal allergy treated? Usually medications are prescribed to relieve symptoms. These may include antihistamines, with or without decongestants, or steroid nasal sprays. Other nasal sprays, which deliver antihistamines or cromolyn sodium, are sometimes helpful. If allergy symptoms are chronic (long-term), allergy testing and allergy shots (immunotherapy) may be helpful. How can I tell if I have a sinus infection, cold, or nasal allergy? Although the symptoms of sinusitis and nasal allergy may occur with a common cold, in general, cold-related symptoms disappear within 1 week. The point at which a normal cold ends and a sinus condition begins is not always easy to know. If you are fighting off a cold and develop symptoms of a sinus infection or nasal allergy, see your health care provider. You will be asked to describe your symptoms and medical history. How do I know if my sinus condition requires the care of an ear, nose, and throat specialist? Most routine sinus conditions are easily cared for by primary care physicians. If, however, you are bothered by ongoing abnormal symptoms, recurring infections, or have abnormal X-ray findings or complications, a referral to a specialist is appropriate. References Brendon Romero al., IDSA Clinical Practice Guideline for Acute Bacterial Rhinosinusitis in Children and Adults. Clinical Infectious Diseases; 2012;54(8):6136-6128. Helder Posada, Sinusitis: Allergies, antibiotics, aspirin, asthma. [facility] Journal of Medicine 2006; 73(7): 671-678 National [place] [employer] Allergy and Infectious [employer]. Sinusitis (Sinus Infection) Accessed 07/16/2015. [employer], [employer]. Sinusitis Accessed 07/16/2015. [employer]. Sinus Information Accessed 07/16/2015. Monserrat Mendoza., Prevalence of migraine in patients with a history of self-reported or physician-diagnosed sinus headache. Arch [employer] Med, 2004. 164(16):1769-72. Copyright 3416-4854 [facility]. All rights reserved. NASAL SALINE IRRIGATION Sinus rinses can help with the nasal congestion and discomfort associated with sinusitis. They can clear or thin excessive mucus, remove crusting, and even remove allergy causing particles such as pollen from the nose. You can purchase commercially prepared salt mixtures or prepare your own rinse with the recipe below: INSTRUCTIONS FOR THE PREPARATION OF ISOTONIC NASAL IRRIGATION SOLUTION Fill one bottle with 8 ounces of distilled water. If you use tap water, boil it first and let it cool to room temperature. Add 1/2 teaspoon non-iodized table salt. Add 1/2 teaspoon baking soda. Mix well until dissolved. Irrigate each nostril with solution Use a commercial squeeze bottle or bulb syringe. Use of the bottle or one full syringe in each nostril. Squeeze saline into the upper nostril gently with your head rotated and tilted down and over a sink. Breathe through your mouth. The saline solution should come out the other nostril. A small amount may get into your mouth. Repeat the process with the other nostril. You may use these salt water rinses one to four times a day. If your nose is severely blocked do not use rinses. If you experience pain, nose bleeds, or other difficulties with the rinses, DO NOT use them. Contact your health care provider with any problems. documented in this encounter [facility] 08-01-2023 History of Presen t illness Narrative This note was created using Fitbitriter. Subjective Ricky Mercer is a 28 year old male.Patient reports 1 week history of nasal congestion, cough,, sore throat, and cough. Patient reports it started to improve 2 days ago but then got worse. Objective BP 132/83 Pulse 89 Temp 36.7 C (98.1 F) Resp 18 Wt 118.4 kg (261 lb) SpO2 96% BMI 36.40 kg/m Physical Exam PHYSICAL EXAMINATION: General appearance: Well appearing, alert, in no acute distress, well-hydrated, well nourished. Nose/Sinuses: Positive findings: mucosa erythematous and swollen, purulent rhinorrhea Oropharynx: Positive findings: moderate oropharyngeal erythema Neck: Supple, no adenopathy; thyroid symmetric, normal size, no bruits Lungs: Lungs clear to auscultation. No wheezing, rhonchi, rales. Heart: RRR without murmur, gallop, or rubs. No ectopy Assessment and Plan ASSESSMENT/PLAN: 1. Bacterial sinusitis - ICD9: 473.9, 041.9, ICD10: J32.9, B96.89 - Will begin treatment with Amoxicillin for 7 days - The patient should also be given OTC cough and cold meds as needed, warm salt water gargles, throat lozenges and/or OTC throat spray as needed, and nasal saline gtts and suction prn for the first 5-7 days of treatment. - Supportive care with plenty of fluids, rest, and analgesia prn. - Follow up in 3-5 days if symptoms persist or worsen. - AMOXICILLIN 875 MG TABLET Ani Gonzalez APRN.CNP documented in this encounter [facility] 06-04-2023 History of Presen t illness Narrative Chief Complaint Patient presents with: jock itch: X 3 weeks; With no relief with OTC anifungal cream HPI Ricky Mercer is a 28 year old male who presents here today for above complaints. Here with jock itch for 3 weeks. Used otc antifungal with initial response but has not gone away. Both sides effected. Itchy, red in the groin space. Past medical history, appointments, medications, allergies reviewed. EXAM: BP 131/79 Pulse 97 Temp 36.8 C (98.3 F) (Left Tympanic) Resp 16 Wt 117.7 kg (259 lb 6.4 oz) SpO2 96% BMI 36.18 kg/m General Appearance: Well appearing, alert, in no acute distress, well-hydrated, well nourished.. Skin: Bilateral groin creases have erythema, warmth and patch like rash . ASSESSMENT/PLAN: 1. Jock itch - ICD9: 110.3, ICD10: B35.6 - Keep area of concern very dry. Ok to use OTC antifungal powder if area is moist - Follow up with PCP if symptoms persist or do not improved after 4-6 weeks of treatment. Failed otc antifungal for 3 weeks. - TERBINAFINE HCL 250 MG TABLET Angel Grubbs APRN.QUALITY CONTROL REPRESENTATIVE This note was partly generated using Mashery voice recognition dictation and may contain some misspelled or inaccurate words missed on review. documented in this encounter [facility] 12-15-2022 History of Presen t illness Narrative Chief Complaint Patient presents with: Rectal Problem HPI Ricky Mercer is a 27 year old male who presents here today for blood in stool. Pt here today for an acute visit. GI - Pt reports intermittent episodes of blood in his stool that went on for about 2-3 months. Symptoms occurred maybe every 7-10 days. Has not had any blood in stool/when wiping for the past month. Was noticing bright red blood on TP when wiping after having a BM. No blood in his stool. Denies having any constipation, frequent loose stools, abdominal pain or rectal itching. Derm - B/L skin irritation behind his ears, L>R. This has been ongoing for a few months. Denies any itching but notes some irritation, raw type pain almost as if it's cracked. Denies wearing/putting anything behind his ear to irritate the area. Does wear glasses at night, but no previous issues. Uses Hydrocortisone cream on area and symptoms improve. Once he stops using the cream it returns. Also noting a lump on the left side of his scalp area behind his ear. Denies this bothering him or getting any larger. Is currently expecting a baby in April, having a girl. This is child #1. Unsure if needing an updated Tdap, most recent in 03/28/2021. HM - Declines depression. Declines further Covid vaccines. Past medical history, appointments, medications, allergies reviewed. Previous Medical History No past medical history on file. Previous Surgical History PAST SURGICAL HISTORY Procedure Laterality Date PAST SURGICAL HISTORY OF Right 2012, 2015 Right knee surgery Family History FAMILY HISTORY Problem Relation Age of Onset other (Anxiety) Mother other (Anxiety) Sister other (Anxiety) Brother Heart Maternal Grandmother Diabetes Maternal Grandfather Patient Allergies ALLERGIES Not on File Current Medications Current Outpatient Medications on File Prior to Visit Medication Sig citalopram hydrobromide (CELEXA) 10 mg tablet Take 1 tablet by mouth once daily. aluminum chloride (DRYSOL) 20 % external solution Apply to affected area daily at bedtime. As needed No current facility-administered medications on file prior to visit. Social History Social History Tobacco Use Smoking status: Never Smokeless tobacco: Never Vaping Use Vaping Use: Never used Substance Use Topics Alcohol use: No Drug use: No EXAM: BP 136/84 (BP Site: Left Arm, BP Position: Sitting, BP Cuff Size: Regular Adult) Pulse 80 Resp 16 Wt 118.8 kg (261 lb 12.8 oz) BMI 36.51 kg/m General Appearance: Well appearing, alert, in no acute distress, well-hydrated, well nourished.. Skin: B/L skin evaluated, possible eczema with erythema , cracking and scaling. Cyst noted under skin on scalp, 1 cm, behind left ear Lungs: Lungs clear to auscultation. No wheezing, rhonchi, rales.. Heart: RRR without murmur, gallop, or rubs. No ectopy. Abdomen: Normal abdominal exam. Health Maintenance List COVID-19 VACCINE(4 - Booster for Moderna series) due on 12/12/2021 DEPRESSION ASSESSMENT Never done HEPATITIS C SCREENING due on 05/27/2023 HIV SCREENING due on 05/27/2023 INFLUENZA(Season Ended) due on 05/07/2023 DTAP,TDAP,TD(8 - Td or Tdap) due on 03/28/2031 HEPATITIS B Completed HPV VACCINE Addressed Data reviewed None ASSESSMENT/PLAN: 1. Rectal bleeding - ICD9: 569.3, ICD10: K62.5 (primary diagnosis) - Continue to monitor. - More then likely related to hemorrhoid or possible irritation/fissure. 2. Eczema, unspecified type - ICD9: 692.9, ICD10: L30.9 - Topical steriod tx with Kenalog cream - discussed skin care of rash - follow up if symptoms persist or worsen. 3. Sebaceous cyst - ICD9: 706.2, ICD10: L72.3 - Stable, continue to monitor Follow up as needed. Update office if rectal bleeding or derm issues reoccur. I agree with the Chief Complaint, ROS, and Past Histories independently gathered by the clinical sales support engineer and the remaining scribed note accurately describes my personal service to the patient. Medical Decision Making: Problems: Low: 2+ self-limited or minor problems Risk: Moderate: Drug management Medical Decision Making Level: 3 - Low Emigdio Prince MD The documentation for this note was completed by Charu Chang Ma acting as scribe for Emigdio Prince MD. December 15, 2022 3:49 PM. Charu Chang Ma documented in this encounter [facility] 10-19-2022 History of Presen t illness Narrative Patient presents for HPV vaccine. Denies any problems at this time. Tolerated injection well. Anita Rivas LPN documented in this encounter [facility] 05-27-2022 History of Presen t illness Narrative Chief Complaint Patient presents with: Physical HPI Ricky Mercer is a 27 year old male who presents here today for physical. Pt here today for a Wellness Exam. Pt last seen over a year ago. Working at [employer], finishing his Bachelors Degree at [employer]. Denies any stomach, bowel or urinary issues. Denies any chest pain, sob or dizziness. Tries to watch diet but admits to not getting enough exercise. Anxiety: Stable, controlled on his current regimen of Celexa 10 mg once daily. No side effects. Uses Drysol 20% for excessive sweating. Past medical history, appointments, medications, allergies reviewed. Previous Medical History No past medical history on file. Previous Surgical History PAST SURGICAL HISTORY Procedure Laterality Date PAST SURGICAL HISTORY OF Right 2012, 2014 Right knee surgery Family History FAMILY HISTORY Problem Relation Age of Onset other (Anxiety) Mother other (Anxiety) Sister other (Anxiety) Brother Heart Maternal Grandmother Diabetes Maternal Grandfather Patient Allergies ALLERGIES Not on File Current Medications Current Outpatient Medications on File Prior to Visit Medication Sig citalopram hydrobromide (CELEXA) 10 mg tablet TAKE 1 TABLET BY MOUTH EVERY DAY aluminum chloride (DRYSOL) 20 % external solution Apply to affected area daily at bedtime. As needed No current facility-administered medications on file prior to visit. Social History Social History Tobacco Use Smoking status: Never Smokeless tobacco: Never Vaping Use Vaping Use: Never used Substance Use Topics Alcohol use: No Drug use: No EXAM: There were no vitals taken for this visit. General Appearance: Well appearing, alert, in no acute distress, well-hydrated, well nourished.. Lungs: Lungs clear to auscultation. No wheezing, rhonchi, rales.. Heart: RRR without murmur, gallop, or rubs. No ectopy. Health Maintenance List MENINGOCOCCAL B: Consider based on risk(1 of 2 - Risk Bexsero 2-dose series) Never done HEPATITIS C SCREENING Never done HIV SCREENING Never done HPV VACCINE(2 - Male 3-dose series) due on 08/03/2017 COVID-19 VACCINE(3 - Booster for Moderna series) due on 06/03/2021 INFLUENZA(1) due on 05/07/2022 DEPRESSION SCREENING due on 05/24/2023 DTAP,TDAP,TD(8 - Td or Tdap) due on 03/28/2031 HEPATITIS B Completed Data reviewed none ASSESSMENT/PLAN: 1. Wellness examination - ICD9: V70.0, ICD10: Z00.00 (primary diagnosis) - Counseled on healthy diet and regular exercise 2. Anxiety - ICD9: 300.00, ICD10: F41.9 Continue current medications. - CITALOPRAM 10 MG TABLET 3. Excessive sweating - ICD9: 780.8, ICD10: R61 Continue current medications. - DRYSOL DAB-O-MATIC 20 % TOPICAL SOLUTION 4. Need for vaccination - ICD9: V05.9, ICD10: Z23 - HUMAN PAPILLOMAVIRUS 9-VALENT HPV IM - HUMAN PAPILLOMAVIRUS 9-VALENT HPV IM - HUMAN PAPILLOMAVIRUS 9-VALENT HPV IM Follow up in 1 year Emigdio Prince MD documented in this encounter [facility] 05-18-2022 Miscellaneous Notes Patient notified & scheduled. Alberta Anaya MA Ok for 90 day fill. Over due for appointment, has been greater than 1 year. The following approved medication requests have been transmitted electronically. Requested Prescriptions Signed Prescriptions Disp Refills citalopram hydrobromide (CELEXA) 10 mg tablet 90 tablet 0 Sig: TAKE 1 TABLET BY MOUTH EVERY DAY Authorizing Provider: ANGEL GRUBBS APRN.CNP Patient phones requesting refills as follows: Requested Prescriptions Pending Prescriptions Disp Refills citalopram hydrobromide (CELEXA) 10 mg tablet [Pharmacy Med Name: CITALOPRAM HBR 10 MG TABLET] 90 tablet 3 Sig: TAKE 1 TABLET BY MOUTH EVERY DAY ULICES-03/28/21 Labs-none NOV-none med filled 05/08/21 Please review and advise. Stefania Campos LPN documented in this encounter [facility] Evaluation note Diagnosis Anxiety Anxiety state, unspecified [facility] Diagnosis Wellness examination- Primary Anxiety Anxiety state, unspecified Excessive sweating Generalized hyperhidrosis Need for vaccination Need for prophylactic vaccination and inoculation against unspecified single disease [facility] Diagnosis Need for vaccination- Primary Need for prophylactic vaccination and inoculation against unspecified single disease [facility] Rectal bleeding- Primary Hemorrhage of rectum and anus Eczema, unspecified type Sebaceous cyst [facility] Diagnosis Jock itch- Primary Dermatophytosis of groin and perianal area [facility] Diagnosis Bacterial sinusitis- Primary Unspecified sinusitis (chronic) [facility] Diagnosis Sebaceous cyst- Primary [facility] Diagnosis Localized mass Localized superficial swelling, mass, or lump Localized mass Localized superficial swelling, mass, or lump [facility] Diagnosis Localized mass Localized superficial swelling, mass, or lump [facility] Diagnosis Status post skin and subcutaneous tissue surgery- Primary Other postprocedural status [facility] Diagnosis Dermatitis due to plants, including poison veronica, sumac, and oak- Primary Contact dermatitis and other eczema due to plants (except food) [facility] Diagnosis Tinea cruris Dermatophytosis of groin and perianal area [facility] Diagnosis Excessive sweating Generalized hyperhidrosis [facility] Diagnosis Anxiety Anxiety state, unspecified [facility] Diagnosis Wellness examination- Primary Excessive sweating Generalized hyperhidrosis Anxiety Anxiety state, unspecified Screening for depression Pain in both hands Pain in both wrists Pain in joint, forearm [facility] Diagnosis Cough, unspecified type- Primary Sore throat Acute pharyngitis Chest pain on breathing Painful respiration Bronchitis Bronchitis, not specified as acute or chronic documented in this encounter [facility] note* Diagnosis Sore throat- Primary Acute pharyngitis URI, acute Acute upper respiratory infections of unspecified site [facility] Diagnosis Lower respiratory infection- Primary Other diseases of respiratory system, not elsewhere classified documented in this encounter [facility] Summary Purpose Family History No Family History Records FoundNo Family History Records Found Advance Directives No Advanced Directives Records FoundNo Advanced Directives Records Found Reason for Referral Specialty Diagnoses / Procedures Referred By Contac t Referred To Contact General Surgery Diagnoses Sebaceous cyst Procedures CONSULT TO GENERAL SURGERY OFFICE/OUTPATIENT [facility] 60 MINUTES Emigdio Prince MD [address] [place] [address] Referral ID Status Reason Start Date Expiration Date Visits Requested Visits Authorized [id number] Authorized PCP Requested Referral 10/21/2023 10/20/2024 1 1 Additional Source Comments (unrecognized sect ion and content) No Status Records FoundNo Status Records Found INFORMATION SOURCE (unrecogn ized section and content) DATE CREATED AUTHOR 05/10/2021 [facility] DATE CREATED AUTHOR AUTHOR'S ORGANIZ ATION 12/11/2024 [facility] Source Comments (unrecognize d section and content) In the event this informatio n is protected by the Federal Confidentiality of Alcohol and Drug Abuse Patient Records regulations: The Federal rules restrict any use of the information to criminally investigate or prosecute any alcohol or drug abuse patient.[facility] the event this information is protected by the Federal Confidentiality of Alcohol and Drug Abuse Patient Records regulations: The Federal rules restrict any use of the information to criminally investigate or prosecute any alcohol or drug abuse patient.[facility] the event this information is protected by the Federal Confidentiality of Alcohol and Drug Abuse Patient Records regulations: The Federal rules restrict any use of the information to criminally investigate or prosecute any alcohol or drug abuse patient.[facility] the event this information is protected by the Federal Confidentiality of Alcohol and Drug Abuse Patient Records regulations: The Federal rules restrict any use of the information to criminally investigate or prosecute any alcohol or drug abuse patient.[facility] the event this information is protected by the Federal Confidentiality of Alcohol and Drug Abuse Patient Records regulations: The Federal rules restrict any use of the information to criminally investigate or prosecute any alcohol or drug abuse patient.[facility] the event this information is protected by the Federal Confidentiality of Alcohol and Drug Abuse Patient Records regulations: The Federal rules restrict any use of the information to criminally investigate or prosecute any alcohol or drug abuse patient.[facility] the event this information is protected by the Federal Confidentiality of Alcohol and Drug Abuse Patient Records regulations: The Federal rules restrict any use of the information to criminally investigate or prosecute any alcohol or drug abuse patient.[facility] the event this information is protected by the Federal Confidentiality of Alcohol and Drug Abuse Patient Records regulations: The Federal rules restrict any use of the information to criminally investigate or prosecute any alcohol or drug abuse patient.[facility] HospitalIn the event this information is protected by the Federal Confidentiality of Alcohol and Drug Abuse Patient Records regulations: The Federal rules restrict any use of the information to criminally investigate or prosecute any alcohol or drug abuse patient.[facility] HospitalIn the event this information is protected by the Federal Confidentiality of Alcohol and Drug Abuse Patient Records regulations: The Federal rules restrict any use of the information to criminally investigate or prosecute any alcohol or drug abuse patient.[facility] HospitalIn the event this information is protected by the Federal Confidentiality of Alcohol and Drug Abuse Patient Records regulations: The Federal rules restrict any use of the information to criminally investigate or prosecute any alcohol or drug abuse patient.[facility] HospitalIn the event this information is protected by the Federal Confidentiality of Alcohol and Drug Abuse Patient Records regulations: The Federal rules restrict any use of the information to criminally investigate or prosecute any alcohol or drug abuse patient.[facility] HospitalIn the event this information is protected by the Federal Confidentiality of Alcohol and Drug Abuse Patient Records regulations: The Federal rules restrict any use of the information to criminally investigate or prosecute any alcohol or drug abuse patient.[facility] HospitalIn the event this information is protected by the Federal Confidentiality of Alcohol and Drug Abuse Patient Records regulations: The Federal rules restrict any use of the information to criminally investigate or prosecute any alcohol or drug abuse patient.[facility] HospitalIn the event this information is protected by the Federal Confidentiality of Alcohol and Drug Abuse Patient Records regulations: The Federal rules restrict any use of the information to criminally investigate or prosecute any alcohol or drug abuse patient.[facility] HospitalIn the event this information is protected by the Federal Confidentiality of Alcohol and Drug Abuse Patient Records regulations: The Federal rules restrict any use of the information to criminally investigate or prosecute any alcohol or drug abuse patient.[facility] HospitalIn the event this information is protected by the Federal Confidentiality of Alcohol and Drug Abuse Patient Records regulations: The Federal rules restrict any use of the information to criminally investigate or prosecute any alcohol or drug abuse patient.[facility] HospitalIn the event this information is protected by the Federal Confidentiality of Alcohol and Drug Abuse Patient Records regulations: The Federal rules restrict any use of the information to criminally investigate or prosecute any alcohol or drug abuse patient.[facility] HospitalIn the event this information is protected by the Federal Confidentiality of Alcohol and Drug Abuse Patient Records regulations: The Federal rules restrict any use of the information to criminally investigate or prosecute any alcohol or drug abuse patient.[facility] HospitalIn the event this information is protected by the Federal Confidentiality of Alcohol and Drug Abuse Patient Records regulations: The Federal rules restrict any use of the information to criminally investigate or prosecute any alcohol or drug abuse patient.[facility] HospitalIn the event this information is protected by the Federal Confidentiality of Alcohol and Drug Abuse Patient Records regulations: The Federal rules restrict any use of the information to criminally investigate or prosecute any alcohol or drug abuse patient.[facility] Reason for Visit (unrecogniz ed section and content) Reason Comments Refill Request Reason Comments Physical Reason Comments Rectal Problem Reason Comments jock itch X 3 weeks; With no r elief with OTC anifungal cream Reason Comments Sinus Problem Head and nasal conge stions and pain, x 1 week and worsening Reason Comments Consult Cyst on left side of head behind ear, has gotten bigger over the last year. Specialty Diagnoses / Procedures Referred By Adri vega Referred To Contact General Surgery Diagnoses Sebaceous cyst Procedures CONSULT TO GENERAL SURGERY OFFICE/OUTPATIENT [facility] 60 MINUTES Emigdio Prince MD [address] [place] [address] Referral ID Status Reason Start Date Expiration Date V isits Requested Visits Authorized [id number] Closed PCP Requested Referral 10/21/2023 10/20/2024 1 1 Specialty Diagnoses / Procedures Referred By Adri vega Referred To Contact [facility] Diagnoses Localized mass Procedures REM LESION NEC,HND,SCAL,FEET,GENITALIA 1.1-2.0CM EXCISION BENIGN LESION SCALP 1.1 TO 2.0 [facility] [address] [place] [address] Referral ID Status Reason Start Date Expiration Date Visits Re quested Visits Authorized [id number] 1 1 Reason Comments Follow Up Scalp lesion Reason Comments Rash Poison veronica x1.5 week s Reason Onset Date Comments Refill Request 07/03/2024 Reason Comments 12/20/2023 EXC SCALP CYST [facility] Reason Comments Cough Reason Comments Sore Throat Fatigue x2 days, MARK, bodyaches Reason Comments Cough Chest congestion, ST , runny nose x6 days Care Teams (unrecognized sec tion and content) Public Address Technician Relationship Specialty Start Date End Date Emigdio Prince MD [address] [place] [address] PCP - General Family Practice 01/01/17 Public Address Technician Relationship Specialty Start Date End Date Emigdio Prince MD [address] [facility] [place] [address] PCP - General Family Medicine 01/01/17 Public Address Technician Relationship Specialty Start Date End Date Emigdio Prince MD [address] [facility] [place] [address] PCP - General Family Medicine 01/01/17 Public Address Technician Relationship Specialty Start Date End Date Emigdio Prince MD [address] [facility] [place] [address] PCP - General Family Medicine 01/01/17 Public Address Technician Relationship Specialty Start Date End Date Emigdio Prince MD [address] [facility] [place] [address] PCP - General Family Medicine 01/01/17 Public Address Technician Relationship Specialty Start Date End Date Emigdio Prince MD [address] [facility] [place] [address] PCP - General Family Medicine 01/01/17 Public Address Technician Relationship Specialty Start Date End Date Emigdio Prince MD [address] [facility] [place] [address] PCP - General Family Medicine 01/01/17 Public Address Technician Relationship Specialty Start Date End Date Emigdio Prince MD [address] [facility] [place] [address] PCP - General Family Medicine 01/01/17 Public Address Technician Relationship Specialty Start Date End Date Emigdio Prince MD [address] [facility] [place] [address] PCP - General Family Medicine 01/01/17 Public Address Technician Relationship Specialty Start Date End Date Emigdio Prince MD [address] [facility] [place] [address] PCP - General Family Medicine 01/01/17 Public Address Technician Relationship Specialty Start Date End Date Emigdio Prince MD [address] [facility] [place] [address] PCP - General Family Medicine 01/01/17 Public Address Technician Relationship Specialty Start Date End Date Emigdio Prince MD [address] [facility] [place] [address] PCP - General Family Medicine 01/01/17 Public Address Technician Relationship Specialty Start Date End Date Emigdio Prince MD [address] [facility] [place] [address] PCP - General Family Medicine 01/01/17 Public Address Technician Relationship Specialty Start Date End Date Emigdio Prince MD [address] [facility] [place] [address] PCP - General Family Medicine 01/01/17 Public Address Technician Relationship Specialty Start Date End Date Emigdio Prince MD [address] [facility] [place] [address] PCP - General Family Medicine 01/01/17 Public Address Technician Relationship Specialty Start Date End Date Emigdio Prince MD [address] [facility] [place] [address] PCP - General Family Medicine 01/01/17 Marlen Peters APRN.CNP [address] [facility] [place] [address] [facility] Family [facility] 08/13/24 Angel Grubbs APRN.QUALITY CONTROL REPRESENTATIVE [address] [place] [address] [facility] 08/22/24 Public Address Technician Relationship Specialty Start Date End Date Emigdio Prince MD [address] [place] [address] PCP - General Family Medicine 01/01/17 Marlen Peters APRN.QUALITY CONTROL REPRESENTATIVE [address] [place] [address] [facility] 08/13/24 Angel Grubbs APRN.QUALITY CONTROL REPRESENTATIVE [address] [place] [address] [facility] 08/22/24 Public Address Technician Relationship Specialty Start Date End Date Emigdio Prince MD [address] [place], [place] [id number] PCP - General Family Medicine 01/01/17 Marlen Peters APRN.QUALITY CONTROL REPRESENTATIVE [address] [place] [address] [facility] 08/13/24 Angel Grubbs APRN.QUALITY CONTROL REPRESENTATIVE [address] [place] [address] [facility] 08/22/24 PRN Active and Recently Administ ered Medications (unrecognized section and content) Medication Order 12/08/2023 12/09/2023 12/10/2023 lidocaine 10 mg/mL (1 %) injection (XYLOCAINE) (CANCELED) X (OR/PROCEDURE) PRN, Starting on Wed12/10/23 at 1127, Until Wed12/10/23 at 1216, Intraprocedure 1127 (Given - Provid er: Mindy Jones MD - Comment: left, posterior area of neck/scalp, behind left ear) FOR RECORDS PERTAINING TO PATIENTS WHO ARE OR HAVE BEEN ENROLLED IN A CHEMICAL DEPENDENCY/SUBSTANCEABUSE PROGRAM, SOME INFORMATION MAY BE OMITTED. This clinical summary was aggregated from multiple sources. Caution should be exercised in using it in the provision of clinical care. This summary normalizes information from multiple sources, and as a consequence, information in this document may materially change the coding, format and clinical context of patient data. In addition, data may be omitted in some cases. CLINICAL DECISIONS SHOULD BE BASED ON THE PRIMARY CLINICAL RECORDS. [facility] [email or web address] [facility]. provides no warranty or guarantee of the accuracy or completeness of information in this document.
[2025-04-07 21:11] VITALS: BP 125/86; PULSE 68; RESP 14; TEMP 37; O2SAT 100
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
== END 2025-04-07 21:19 | disposition home or self-care (01) ==
PROVIDERS: Emergency Provider Emergency Medicine; PCP Family Medicine; Visit Provider Emergency Medicine
DX: T23.131A Burn of first degree of multiple right fingers (nail), not including thumb, initial encounter (principal); F41.9 Anxiety disorder, unspecified; Z79.899 Other long term (current) drug therapy; X19.XXXA Contact with other heat and hot substances, initial encounter
CPT/HCPCS: 99282

== ENCOUNTER 2025-06-27 15:36 | Emergency (ER) | payer OTHER, SELFPAY ==
[2025-06-27 15:37] VITALS: BP 155/88; PULSE 86; RESP 16; TEMP 36.9; O2SAT 97; BMI 44.4
[2025-06-27 18:50] VITALS: BP 150/58; PULSE 80; RESP 18; TEMP 36.7; O2SAT 99
== END 2025-06-27 18:51 | disposition home or self-care (01) ==
PROVIDERS: Emergency Provider Surgery; PCP Family Medicine; Visit Provider Surgery
DX: L05.91 Pilonidal cyst without abscess (principal); F41.9 Anxiety disorder, unspecified; Z79.899 Other long term (current) drug therapy; L03.317 Cellulitis of buttock
CPT/HCPCS: 99282

== ENCOUNTER 2025-07-24 18:14 | Emergency (ER) | payer OTHER, SELFPAY ==
[2025-07-24 18:15] VITALS: BP 162/90; PULSE 91; RESP 16; TEMP 37; O2SAT 97; BMI 37.2
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
--- OUTSIDE RECORDS SUMMARY | 2025-07-24 20:59 | XMS RPT_ITS | CCD ---
Author Organization [facility] Care Team Providers Care Inner Tube Cutter Name Role Phone Emigdio Prince MD Primary Care Provider Emigdio Prince MD Primary Care Provider Tannhof CLINICAL AUDITOR.RAILROAD PURCHASING AGENT Marlen Unavailable Felix CLINICAL AUDITOR.RAILROAD PURCHASING AGENTBrendae Unavailable Tannhof CLINICAL AUDITOR.RAILROAD PURCHASING AGENT Marlen Unavailable Dr. Emigdio Prince MD Primary Care Provider Eric Giraldo MD Emergency Provider Emigdio Prince Primary Care Unavailable Bruce Santamaria Attending Unavailabl Emigdio Garcia Primary Care Unavailable Eric Giraldo Attending Unavailable EMIGDIO PRINCE Primary Care Unavailable EMIGDIO PRINCE Referring Unavailable MICHELLE JORDAN Attending Unavailable EMIGDIO PRINCE Primary Care Unavailable ANGEL GRUBBS Attending Unavailable EMIGDIO PRINCE Primary Care Unavailable ANGEL GRUBBS Referring Unavailable EMIGDIO PRINCE Primary Care Unavailable TAURUS TURNER Attending Unavailable BRENDA GRUBBSE Referring Unavailable EMIGDIO PRINCE Primary Care Unavailable EMIGDIO PRINCE Attending Unavailable EMIGDIO PRINCE Primary Care Unavailable EMIGDIO PRINCE Primary Care Unavailable EMIGIDO PRINCE Primary Care Unavailable EMIGDIO PRINCE Primary Care Unavailable PRUDENCIO MONCADA Attending Unavailable EMIGDIO PRINCE Primary Care Unavailable PRUDENCIO MONCADA Attending Unavailable EMIGDIO PRINCE Primary Care Unavailable MARILU PETERSON Attending Unavailable EMIGDIO PRINCE Primary Care Unavailable EMIGDIO PRINCE Attending Unavailable EMIGDIO PRINCE Primary Care Unavailable MARILU PETERSON Referring Tae Prince MD, Dr. Shafer Primary Care Physician Eric Giralod MD Attending Physician Eric Giraldo MD Emergency Department [facility], Dr. Barrera Attending Physician Rosalio CRAIN, Dr. Barrera [facility] Medications Current Medications Medication Drug Class(es) Dates [...] oral tablet (1 source) Penicillin-class Antibacterial Start: End: take 1 tablet by mouth twice daily amoxicillin (AMOXIL) 875 mg tablet Indications: Bacterial sinusitis Take 1 tablet by mouth two times a day for 7 days. 14 tablet 0 08/01/2023 08/08/2023 Active Comment on above: Take 1 tablet by daniela two times a day for 7 days. amoxicillin 875 mg / clavulanate 125 mg oral tablet (1 source) Penicillin-class Antibacterial Start: azithromycin 250 mg oral tablet (1 source) Macrolide Antimicrobial Start: End: azithromycin (ZITHROMAX) 250 mg tablet Indications: Cough, unspecified type , Sore throat , Bronchitis Take 2 tablets by mouth as directed for 1 day, THEN 1 tablet as directed for 4 days. 6 tablet 09/04/2024 09/09/2024 Active benzonatate 100 mg oral capsule (2 sources) Non-narcotic Antitussive Start: take 1 capsule by mouth three times daily as needed for cough benzonatate (TESSALON PERLE) 100 mg capsule Indications: Lower respiratory infection Take 1 capsule by mouth three times a day as needed for cough for up to 12 doses. 12 capsule 12/10/2024 Active citalopram 10 mg oral tablet (20 sources) Serotonin Reuptake Inhibitor Start: End: take 1 tablet by mouth once daily citalopram hydrobromide (CELEXA) 10 mg tablet Indications: Anxiety Take 1 tablet by mouth once daily. 90 tablet 3 07/06/2024 Active Comment on above: Take 1 tablet by daniela th once daily. TAKE 1 TABLET BY DANIELA TH EVERY DAY doxycycline monohydrate 100 mg oral capsule (1 source) Tetracycline-class Drug Start: End: take 1 capsule by mouth twice daily doxycycline monohydrate (MONODOX) 100 mg capsule Indications: Lower respiratory infection Take 1 capsule by mouth two times a day for 5 days. 10 capsule 12/10/2024 12/15/2024 Active ondansetron 4 mg disintegrating oral tablet (3 sources) Serotonin-3 Receptor Antagonist Start: take 1 tablet by mouth every eight hours as needed for nausea and nausea ondansetron orally disintegrating (ZOFRAN ODT) 4 mg disintegrating tablet Indications: Nausea Take 1 tablet by mouth every 8 hours as needed for nausea/vomiting. 20 tablet 05/07/2025 Active predniSONE 20 mg oral tablet (3 sources) Start: End: take 2 tablets by mouth once daily [...] Take 1 tablet by daniela once daily. triamcinolone acetonide 0.25 mg/ml topical [...] Translations: [Anxiety disorder, unspecified] Onset: 01-01-2017 Chronic Dash (3 sources) Partial thickness burn; Translations: [Blisters, epidermal loss [second degree], unspecified site] Onset: 04-19-2025 04-07-2025 Episodic Chronic obstructive pulmonary disease and bronchiectasis (1 source) Bronchitis; Translations: [Bronchitis, not specified as acute or chronic] 09-04-2024 Episodic Contraceptive and procreative management (1 source) Encounter for other general counseling and advice on contraception; Translations: [Vasectomy evaluation] Onset: 07-09-2025 Episodic Gastrointestinal hemorrhage (1 source) Rectal hemorrhage; Translations: [Hemorrhage of anus and rectum] Episodic Genitourinary symptoms and ill-defined conditions (3 sources) Dysuria; Translations: [Other microscopic hematuria] Onset: 06-14-2025 Episodic Immunizations and screening for infectious disease (6 sources) Vaccination needed; Translations: [Encounter for immunization] Onset: 07-09-2025 Episodic Mycoses (2 sources) Tinea cruris; Translations: [Tinea cruris] 06-04-2023 Episodic Nausea and vomiting (4 sources) Nausea, vomiting and diarrhea; Translations: [Nausea with vomiting, unspecified] Onset: 05-07-2025 08-28-2019 Episodic Other aftercare (1 source) Encounter for change or removal of nonsurgical wound dressing; Translations: [Dressing change] Onset: 07-04-2025 Episodic Other connective tissue disease (1 source) [...] of mental health and substance abuse codes (2 sources) Patient encounter status; Translations: [Encounter for screening for depression] Onset: 07-09-2025 07-06-2024 Episodic Skin and subcutaneous tissue infections (3 sources) Pilonidal cyst without abscess; Translations: [Pilonidal cyst] Onset: 07-03-2025 07-05-2025 Episodic Past or Other Problems Problem Classification Problem Date Documented Da te Episodic/Chronic Other skin disorders (20 sources) Excessive sweating; Translations: [Generalized hyperhidrosis] Onset: 01-01-2017 01-01-2017 Episodic Other skin disorders (1 source) Generalized hyperhidrosis; Translations: [Excessive sweating] Onset: 01-01-2017 Episodic Results Test Name Value Interpretation Reference Range Facil ity JADOVon 07-09-2025 CNOV Office Visit (FAMPWS ) RICKY MERCER ([id number]) 1995 M Date Time Provider Department 07/09/25 8:00 AM ANGEL GRUBBS [facility] During your visit today, we recorded the following information about you: Pulse Respiration Blood pressure Weight 78/minute 16/minute 120/76 118.3 kg Height 1.778 m Angel Grubbs APRN.CNP 07/09/2025 8:17 AM Signed Chief Complaint Patient presents with: Physical: Referral for Vasectomy HPI Ricky Mercer is a 30 year old male who presents here today for physical and referral. Ricky Mercer is a 30-year-old male presenting for a physical examination and a referral for a vasectomy. 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 He is currently using Drysol for hyperhidrosis, which he applies every 2 weeks. Initially, he applied it once weekly at night and showered the following morning, avoiding deodorant for the first day to prevent irritation. This regimen has effectively managed his symptoms. He is also taking Celexa 10 mg daily, which he reports is well-tolerated. He recently completed a course of Augmentin and has a prescription for Zofran, which he keeps on hand. Ricky acknowledges a need to lose weight and reports that his primary form of exercise is caring for his 2-year-old child. He tries to stay active during the summer. He has been making dietary changes over the past year, including reducing fried foods and sugar intake, and primarily eats at home. He denies any specific diet but is mindful of his saturated fat intake. He denies consuming excessive fast food. He has a family history of heart problems in his mother but denies any family history of diabetes. He works in [employer] and currently resides in [place]. Past medical history, appointments, medications, allergies reviewed. Previous Medical History PAST MEDICAL HISTORY Diagnosis Date Asthma (HCC) Generalized anxiety disorder Previous Surgical History PAST [...] on File Prior to Visit Medication Sig ondansetron orally disintegrating (ZOFRAN ODT) 4 mg disintegrating tablet Take 1 tablet by mouth every 8 hours as needed for nausea/vomiting. aluminum chloride (DRYSOL) 20 % external solution Apply to affected area daily at bedtime. As needed citalopram hydrobromide (CELEXA) 10 mg tablet Take 1 tablet by mouth once daily. No current facility-administered medications on file prior to visit. Social History SOCIAL HISTORY[1] REVIEW OF SYSTEMS: as above Reviewed relevant PMHx, PSHx, Social Hx, current medications and allergies. Review of Symptoms Skin: (+) excessive sweating, (+) skin dryness, (+) skin chafing EXAM: BP 120/76 Pulse 78 Resp 16 Ht 177.8 cm (5' 10) Wt 118.3 kg (260 lb 12.8 oz) BMI 37.42 kg/m? General Appearance: Well appearing, alert, in no acute distress, well-hydrated, well nourished. and Overweight. Head: Normocephalic, no masses, lesions, tenderness or abnormalities. Eyes: Anicteric sclera. Pupils are equally round and reactive to light. Extraocular movements are intact. . Ears: External ears normal, canals clear. Nose/Sinuses: Nares normal, septum midline, mucosa normal, no drainage or sinus tenderness. Oropharynx: Lips, mucosa, and tongue normal, teeth and gums normal, oropharynx normal. Neck: Supple, no adenopathy; thyroid symmetric, normal size Lungs: Lungs clear to auscultation. No wheezing, rhonchi, rales.. Heart: RRR without murmur, gallop, or rubs. No ectopy. Abdomen: Normal abdominal exam, Abdomen soft, non-tender. Bowel sounds normal. No masses, organomegaly. Extremities: No deformities, edema Health Maintenance List Hepatitis C Screening Never done HIV Screening Never done Influenza Vaccine(1) due on 03/05/2026 Covid-19 Vaccine(2024- season) due on 07/09/2026 Depression Screening due on 07/09/2026 DTaP,Tdap,Td Vaccine(8 - Td or Tdap) due on 03/28/2031 Hepatitis B Vaccine Completed HPV Vaccine Addressed Data reviewed None 1. Wellness examination (Z00.00) Routine annual physical exam for a 30-year-old male; vital signs within normal limits; BMI elevated. - Ordered screening labs: Hepatitis C, HIV, cholesterol, and metabolic profile. - Discussed importance of maintaining a healthy diet and regular exercise; advised monitoring caloric intake, especially from snacks. - Follow-up in 1 y (more content not included)... Normal [facility] Comprehensive metabolic 2000 panelon 07-09-2025 Albumin [Mass/Vol] 4.7 g/dL Normal 3.9-4.9 [facility] Comment on above: Order Comment: Speci men Type: BLOOD SPECIMENOrdering Facility: [facility] Address: [address] [place] [address] Performed By: #### 2 4323-8, 88338-5 ####[facility] LABCLIA [id number] [place] [address] [place] ALP [Catalytic activity/Vol] 71 U/L Normal 38-113 [facility] Comment on above: Order Comment: Speci men Type: BLOOD SPECIMENOrdering Facility: [facility] Address: [address] [place] [address] Performed By: #### 2 4323-8, 88506-0 ####[facility] LABCLIA [id number] [place] [address] [place] ALT [Catalytic activity/Vol] 27 U/L Normal 10-54 [facility] Comment on above: Order Comment: Speci men Type: BLOOD SPECIMENOrdering Facility: [facility] Address: [address] [place] [address] Performed By: #### 2 4323-8, 41060-9 ####[facility] LABCLIA [id number] [place] [id number] [place] Anion gap [Moles/Vol] 12 mmol/L Normal 8-15 [facility] Comment on above: Order Comment: Speci men Type: BLOOD SPECIMENOrdering Facility: [facility] Address: [address] [place] [address] Performed By: #### 2 4323-8, 51928-6 ####[facility] LABCLIA [id number] [place] [address] [place] AST [Catalytic activity/Vol] 22 U/L Normal 14-40 [facility] Comment on above: Order Comment: Speci men Type: BLOOD SPECIMENOrdering Facility: [facility] Address: [address] [place] [address] Performed By: #### 2 4323-8, 42279-5 ####[facility] LABCLIA [id number] [place] [address] [place] Bilirubin [Mass/Vol] 0.3 mg/dL Normal 0.2-1.3 [facility] Comment on above: Order Comment: Speci men Type: BLOOD SPECIMENOrdering Facility: [facility] Address: [address] [place] [address] Performed By: #### 2 4323-8, 19379-7 ####[facility] LABCLIA [id number] [place] [id number] [place] Calcium [Mass/Vol] 9.6 mg/dL Normal 8.5-10.2 [facility] Comment on above: Order Comment: Speci men Type: BLOOD SPECIMENOrdering Facility: [facility] Address: [address] [place] [address] Performed By: #### 2 4323-8, 43376-7 ####[facility] LABCLIA [id number] [place] [address] [place] Chloride [Moles/Vol] 105 mmol/L Normal 98-107 [facility] Comment on above: Order Comment: Speci men Type: BLOOD SPECIMENOrdering Facility: [facility] Address: [address] [place] [address] Performed By: #### 2 4323-8, 54287-7 ####[facility] LABCLIA [id number] [place] [address] [place] CO2 [Moles/Vol] 22 mmol/L Normal 22-30 [facility] Comment on above: Order Comment: Speci men Type: BLOOD SPECIMENOrdering Facility: [facility] Address: [address] [place] [address] Performed By: #### 2 4323-8, 40997-4 ####[facility] LABCLIA [id number] [place] [address] [place] Creatinine [Mass/Vol] 0.99 mg/dL Normal 0.73-1.22 [facility] Comment on above: Order Comment: Speci men Type: BLOOD SPECIMENOrdering Facility: [facility] Address: [address] [place] [address] Performed By: #### 2 4323-8, 53770-5 ####[facility] LABCLIA [id number] [place] [address] [place] eGFRcr SerPlBld CKD-EPI 2020 106 mL/min/1.73m??? Normal >=60 [facility] Comment on above: Order Comment: Speci men Type: BLOOD SPECIMENOrdering Facility: [facility] Address: [address] [place] [address] Result Comment: Ayah mated Glomerular Filtration Rate (eGFR) is calculated using the 2020 CKD-EPI creatinine equation. This equation utilizes serum creatinine, sex, and age as parameters. The creatinine assay has traceable calibration to isotope dilution-mass spectrometry. Refer to KDIGO guidelines for clinical interpretation. In patients with unstable renal function, e.g. those with acute kidney injury, the eGFR may not accurately reflect actual GFR. Performed By: #### 2 4323-8, 58844-6 ####[facility] LABCLIA [id number] [place] [address] [place] Glucose [Mass/Vol] 89 mg/dL Normal 74-99 [facility] Comment on above: Order Comment: Speci men Type: BLOOD SPECIMENOrdering Facility: [facility] Address: [address] [place] [address] Result Comment: The [place] Diabetes Association (ADA) provides guidance for cutoff values for fasting glucose and random glucose. The ADA defines fasting as no caloric intake for at least 8 hours. Fasting plasma glucose results between 100 to 125 mg/dL indicate increased risk for diabetes (prediabetes). Fasting plasma glucose results greater than or equal to 126 mg/dL meet the criteria for diagnosis of diabetes. In the absence of unequivocal hyperglycemia, results should be confirmed by repeat testing. In a patient with classic symptoms of hyperglycemia or hyperglycemic crisis, random plasma glucose results greater than or equal to 200 mg/dL meet the criteria for diagnosis of diabetes. Reference: Standards of Medical Care in Diabetes 2016, [place] Diabetes Association. Diabetes Care. 2016.39(Suppl 1). Performed By: #### 2 4323-8, 96950-9 ####[facility] LABCLIA [id number] [place] [address] [place] Potassium [Moles/Vol] 4.9 mmol/L Normal 3.7-5.1 [facility] Comment on above: Order Comment: Speci men Type: BLOOD SPECIMENOrdering Facility: [facility] Address: [address] [place] [address] Performed By: #### 2 4323-8, 81276-0 ####[facility] LABCLIA [id number] [place] [address] [place] Protein [Mass/Vol] 7.8 g/dL Normal 6.3-8.0 [facility] Comment on above: Order Comment: Speci men Type: BLOOD SPECIMENOrdering Facility: [facility] Address: [address] [place] [address] Performed By: #### 2 4323-8, 62466-0 ####[facility] LABCLIA [id number] [place] [address] [place] Sodium [Moles/Vol] 139 mmol/L Normal 136-144 [facility] Comment on above: Order Comment: Speci men Type: BLOOD SPECIMENOrdering Facility: [facility] Address: [address] [place] [address] Performed By: #### 2 4323-8, 31365-2 ####[facility] LABCLIA [id number] [place] [address] [place] Urea nitrogen [Mass/Vol] 15 mg/dL Normal 9-24 [facility] Comment on above: Order Comment: Speci men Type: BLOOD SPECIMENOrdering Facility: [facility] Address: [address] [place] [address] Performed By: #### 2 4323-8, 09613-5 ####[facility] LABIA [id number] [place] [address] [place] HCV Ab Ser Qlon 07-09-2025 HCV Ab Ql (S) Negative Normal Negative [facility] Comment on above: Order Comment: Speci men Type: BLOOD SPECIMENOrdering Facility: [facility] Address: [address] [place] [address] Result Comment: The result suggests no evidence of infection with Hepatitis C virus. Should recent infection be suspected, repeat testing may be considered 4-6 weeks after this draw. Performed By: #### 1 6128-1 ####[facility] LABCLIA [id number] [place] [address] [place] HIV 1+2 Ab IA Qlon HIV 1 and 2 Ab IA.rapid Nom (S/P/Bld) Normal [facility] Comment on above: Order Comment: Speci men Type: BLOOD SPECIMENOrdering Facility: [facility] Address: [address] [place] [address] Result Comment: Test not indicated. Performed By: #### 3 1201-7 ####[facility] LABCLIA [id number] [place] [address] [place] HIV 1+2 Ab+HIV1 p24 Ag IA Ql Non-Reactive Normal Nonreactive [facility] Comment on above: Order Comment: Speci men Type: BLOOD SPECIMENOrdering Facility: [facility] Address: [address] [place] [address] Performed By: #### 3 1201-7 ####[facility] LABCLIA [id number] [place] [address] [place] HIV immunoassay testing algorithm interpretation (S/P/Bld) [Interp] Normal [facility] Comment on above: Order Comment: Speci men Type: BLOOD SPECIMENOrdering Facility: [facility] Address: [address] [place] [address] Result Comment: No e vidence of HIV-1 or HIV-2 infection. Should recent infection be suspected, repeat testing may be considered 2-3 weeks after this draw. [place] Rev. Code 3701.243(E): This information has been disclosed to you from confidential records protected from disclosure by state law. You shall make no further disclosure of this information without the specific, written, and informed release of the individual to whom it pertains or as otherwise permitted by state law. A general authorization for the release of medical or other information is not sufficient for the purpose of the release of HIV test results or diagnoses. Performed By: #### 3 1201-7 ####[facility] LABIA [id number] [place] [address] [place] Lipid 1995 panelon 5 Cholesterol [Mass/Vol] 216 mg/dL High <200 [facility] Comment on above: Order Comment: Speci men Type: BLOOD SPECIMENOrdering Facility: [facility] Address: [address] [place] [address] Result Comment: <200 mg/dL, Desirable 200-239 mg/dL, Borderline high >239 mg/dL, High Performed By: #### 2 4323-8, 34104-5 ####[facility] LABCLIA [id number] [address] OF [facility] Cholesterol in HDL [Mass/Vol] 33 mg/dL Low >39 [facility] Comment on above: Order Comment: Speci men Type: BLOOD SPECIMENOrdering Facility: [facility] Address: [address] [place] [address] Result Comment: 40-5 9 mg/dL, Acceptable >59 mg/dL, High: Negative risk factor for coronary heart disease <40 mg/dL, Low: Positive risk factor for coronary heart disease Performed By: #### 2 4323-8, 78750-1 ####[facility] LABCLIA [id number] [address] STATES OF [facility] Cholesterol in LDL [Mass/Vol] 118 mg/dL High <100 [facility] Comment on above: Order Comment: Erici men Type: BLOOD SPECIMENOrdering Facility: [facility] Address: [address] [place] [address] Result Comment: <100 mg/dL, Optimal 100-129 mg/dL, Near optimal/above optimal 130-159 mg/dL, Borderline high 160-189 mg/dL, High >189 mg/dL, Very high Secondary prevention optimal LDL Cholesterol levels are recommended to be <70 mg/dL LDL cholesterol is calculated using the Gómez-NIH equation. Performed By: #### 2 4323-8, 97616-2 ####[facility] LABCLIA [id number] [address] [place] Cholesterol in LDL/Cholesterol in HDL [Mass ratio] 3.58 {ratio} High <2.54 [facility] Comment on above: Order Comment: Erici men Type: BLOOD SPECIMENOrdering Facility: [facility] Address: [address] [place] [address] Result Comment: Kala jensen: 1. National Cholesterol Education Program ATP III Guideline At-A-Glance Quick Desk Reference: National Heart, Lung, and Blood [place]. National Institutes of Health. 2001: NIH Publication No. 01-3305. 2. An International Atherosclerosis Society position paper: global recommendations for the management of dyslipidemia: executive summary, Atherosclerosis. 2014: 232(2):410-413. Performed By: #### 2 4323-8, 00959-9 ####[facility] LABCLIA [id number] [place] [address] [place] Cholesterol in VLDL [Mass/Vol] 65 mg/dL High <30 [facility] Comment on above: Order Comment: Speci men Type: BLOOD SPECIMENOrdering Facility: [facility] Address: [address] [place] [address] Performed By: #### 2 4323-8, 18507-6 ####[facility] LABCLIA [id number] [place] [address] [place] Cholesterol non HDL [Mass/Vol] 183 mg/dL High <130 [facility] Comment on above: Order Comment: Speci men Type: BLOOD SPECIMENOrdering Facility: [facility] Address: [address] [place] [address] Result Comment: <130 mg/dL, Optimal 130-159 mg/dL, Near optimal/above optimal 160-189 mg/dL, Borderline high 190-219 mg/dL, High >219 mg/dL, Very high Secondary prevention optimal non HDL Cholesterol levels are recommended to be <100 mg/dL Performed By: #### 2 4323-8, 51633-1 ####[facility] LABCLIA [id number] [place] [address] [place] [facility] Cholesterol.total/C holesterol in HDL [Mass ratio] 6.55 {ratio} High <5.10 [facility] Comment on above: Order Comment: Speci men Type: BLOOD SPECIMENOrdering Facility: [facility] Address: [address] [place] [address] Performed By: #### 2 4323-8, 70009-8 ####[facility] LABCLIA [id number] [address] [place] FASTING TIME 12 hrs Normal [facility] Comment on above: Order Comment: Speci men Type: BLOOD SPECIMENOrdering Facility: [facility] Address: [address] [place] [address] Performed By: #### 2 4323-8, 64830-9 ####[facility] LABCLIA [id number] [place] [address] [place] Triglyceride [Mass/Vol] 370 mg/dL High <150 [facility] Comment on above: Order Comment: Speci men Type: BLOOD SPECIMENOrdering Facility: [facility] Address: [address] [place] [address] Result Comment: <150 mg/dL, Normal 150-199 mg/dL, Borderline high 200-499 mg/dL, High >499 mg/dL, Very high Performed By: #### 2 4323-8, 76808-8 ####[facility] LABCLIA [id number] [address] OF [place] CNNURSEon 07-04-2025 [facility] ([facility]ENSWS[facility] RICKY MERCER ([id number]) 1995 M Date Time Provider Department 07/04/25 10:30 AM NURSE FERNY [facility] GENSWS During your visit today, we recorded the following information about you: Flor Burgess RN 07/04/2025 10:46 AM Signed Removed packing from IANDD site. Painful per patient. Small amount of red drainage. No purulent drainage. Instructions given on how to change dressing to and patient. voiced that her sister is a nurse and can probably assist with dressing changes. Left office in good condition, ambulatory. Allergies As of Date: 07/04/2025 (No Known Allergies) Date Reviewed: 07/03/2025 Reviewed by: Flor Burgess RN - Fully Assessed Primary Visit Diagnosis:Dressing change [Z48.00] Prescriptions as of 07/04/2025 - amoxicillin-clavulana te potassium (AUGMENTIN) 875-125 mg per tablet Take 1 tablet by mouth two times a day. - cephALEXin (KEFLEX) 500 mg capsule Take 1 capsule by mouth four times daily. - ondansetron orally disintegrating (ZOFRAN ODT) 4 mg disintegrating tablet Take 1 tablet by mouth every 8 hours as needed for nausea/vomiting. - benzonatate (TESSALON PERLE) 100 mg capsule Take 1 capsule by mouth three times a day as needed for cough for up to 12 doses. - aluminum chloride (DRYSOL) 20 % external solution Apply to affected area daily at bedtime. As needed - citalopram hydrobromide (CELEXA) 10 mg tablet Take 1 tablet by mouth once daily. Problem List As Of Date 07/04/2025 Noted Resolved Excessive sweating [R61] 01/01/2017 Anxiety [F41.9] 01/01/2017 Encounter Status:Closed by FLOR BURGESS on 07/04/25 [facility] CNOVon 07-03-2025 CNOV Office Visit (GENSWS ) RICKY MERCER ([id number]) 1995 M Date Time Provider Department 07/03/25 10:15 AM MICHELLE JORDAN During your visit today, we recorded the following information about you: Pulse Respiration Blood pressure Weight 78/minute 14/minute 143/77 120.3 kg Flor Burgess RN 07/03/2025 11:34 AM Signed UNIVERSAL PROTOCOL / SAFETY CHECKLIST Procedure to be Performed: Incision and Drainage of pilonidal Abscess. Sign In: A Moment of CARE was completed. Appropriate PPE (Personal Protective Equipment) worn by all providers involved with the procedure. Special equipment not required. Patient/Surrogate Stated/Verified: Patient name, Date of , Relevant allergies, and The intended procedure Time Out: Relevant labs, photos, and/or imaging studies have been reviewed. Intended patient and procedure match the source document(s) (e.g. consent, HANDP, associated studies [imaging, pathology]) match the intended patient and procedure. Consent obtained and matches the intended procedure. Yes. Correct side/site is not applicable. Medications required for this procedure are verified. Fire risk assessed and is not applicable. Implants: are not applicable. Sign Out: Specimens not collected. All instruments, equipment, possible retained foreign bodies are accounted for. Yes. The post-procedure plan of care has been communicated to the patient or surrogate. Flro Burgess RN 07/03/2025 11:07 AM Signed The following instructions are important for you related to your office visit today with the [facility] General Surgeons. Instructions After I AND D PILONIDAL CYST The packing should be removed in 1-2 days. There may be some bleeding as the packing is removed. This may be controlled with direct pressure. The redness, swelling and discomfort should decrease after drainage of your pilonidal abscess. If the redness, swelling, or discomfort increase or you start having high fevers, contact our office immediately. Once the iodoform packing has been removed, you should start performing sitz baths. For sitz baths-draw for 10 five inches of lukewarm bath water and soak for approximately 10 minutes. do add at epsom salts or other agents to the water. Over the counter pain medications usually are adequate for post operative pain control. If you notice continued issues with drainage from the site, or other difficulties or concerns, you should contact our office immediately @ [phone]. If you note any additional difficulties, questions, or concerns, you should contact our office immediately @ [phone] and ask to be transferred to the General Surgery department. Schedule for tomorrow, nurse visit for dressing change. Sary Aguilar MA 07/03/2025 11:34 AM Signed REVIEW OF SYSTEMS: General: The patient [...] shortness of breath, and denies coughing up blood. Gastrointestinal: The patient denies difficulty swallowing, denies [...] stroke/TIA. Psychiatric: The patient denies psychiatric medications, NOTES depression, and denies voices, denies substance abuse. Endocrine: The patient denies thyroid disorders, denies diabetes, and denies hormonal problems. Hematologic: The patient denies a history of bruising, denies bleeding, and denies anemia, denies blood clots. Infections: The patient denies a history of measles and mumps, denies rheumatic fever, and denies sexually transmitted (more content not included)... Normal [facility] Urinalysis complete panel (U )on 07-03-2025 Bacteria LM.HPF (Urine sed) [#/Area] Negative Normal Negative [facility] Comment on above: Order Comment: Speci men Type: URINE SPECIMENOrdering Facility: [facility] Address: [address] [place] [address] Performed By: #### 2 4356-8 ####[facility] LABCLIA [id number] [place] [address] [place] Bilirubin Ql (U) Negative Normal Negative [facility] Comment on above: Order Comment: Speci men Type: URINE SPECIMENOrdering Facility: [facility] Address: [address] [place] [address] Performed By: #### 2 4356-8 ####[facility] LABCLIA [id number] [place] [address] [place] Clarity (Unsp spec) Clear Normal Clear [facility] Comment on above: Order Comment: Speci men Type: URINE SPECIMENOrdering Facility: [facility] Address: [address] [place] [address] Performed By: #### 2 4356-8 ####[facility] LABCLIA [id number] [place] [address] [place] Color (U) Yellow Normal Yellow [facility] Comment on above: Order Comment: Speci men Type: URINE SPECIMENOrdering Facility: [facility] Address: [address] [place] [address] Performed By: #### 2 4356-8 ####[facility] LABIA [id number] [place] [address] [place] Epithelial cells LM.HPF (Urine sed) [#/Area] None Seen Normal [facility] Comment on above: Order Comment: Speci men Type: URINE SPECIMENOrdering Facility: [facility] Address: [address] [place] [address] Performed By: #### 2 4356-8 ####[facility] LABCLIA [id number] [place] [address] [place] Glucose Test strip (U) [Mass/Vol] Negative Normal Negative [facility] Comment on above: Order Comment: Speci men Type: URINE SPECIMENOrdering Facility: [facility] Address: [address] [place] [address] Performed By: #### 2 4356-8 ####[facility] LABCLIA [id number] [address] [place] Hemoglobin Ql (U) Negative Normal Negative [facility] Comment on above: Order Comment: Speci men Type: URINE SPECIMENOrdering Facility: [facility] Address: [address] [place] [address] Performed By: #### 2 4356-8 ####[facility] LABCLIA [id number] [place] [address] [place] Hyaline casts (Urine sed) [#/Area] 0 /[LPF] Normal 0 /LPF [facility] Comment on above: Order Comment: Speci men Type: URINE SPECIMENOrdering Facility: [facility] Address: [address] [place] [address] Performed By: #### 2 4356-8 ####[facility] LABCLIA [id number] [place] [address] [place] Ketones Ql (U) Negative Normal Negative [facility] Comment on above: Order Comment: Speci men Type: URINE SPECIMENOrdering Facility: [facility] Address: [address] [place] [address] Performed By: #### 2 4356-8 ####[facility] LABCLIA [id number] [place] [address] [place] Leukocyte esterase Test strip Ql (U) Negative Normal Negative [facility] Comment on above: Order Comment: Speci men Type: URINE SPECIMENOrdering Facility: [facility] Address: [address] [place] [address] Performed By: #### 2 4356-8 ####[facility] LABCLIA [id number] [place] [address] [place] Nitrite Ql (U) Negative Normal Negative [facility] Comment on above: Order Comment: Speci men Type: URINE SPECIMENOrdering Facility: [facility] Address: [address] [place] [address] Performed By: #### 2 4356-8 ####[facility] LABCLIA [id number] [place] [address] [place] pH (U) 6.5 [pH] Normal 5.0-8.0 [facility] Comment on above: Order Comment: Speci men Type: URINE SPECIMENOrdering Facility: [facility] Address: [address] [place] [address] Performed By: #### 2 4356-8 ####[facility] LABCLIA [id number] [place] [address] [place] Protein (U) [Mass/Vol] Negative Normal Negative [facility] Comment on above: Order Comment: Speci men Type: URINE SPECIMENOrdering Facility: [facility] Address: [address] [place] [address] Performed By: #### 2 4356-8 ####[facility] LABCLIA [id number] [place] [address] [place] RBC LM.HPF (Urine sed) [#/Area] 0-2 /HPF Normal 0-2 /HPF [facility] Comment on above: Order Comment: Speci men Type: URINE SPECIMENOrdering Facility: [facility] Address: [address] [place] [address] Performed By: #### 2 4356-8 ####[facility] LABIA [id number] [place] [address] [place] Specific gravity (U) [Rel density] 1.016 Normal 1.005-1.030 [facility] Comment on above: Order Comment: Speci men Type: URINE SPECIMENOrdering Facility: [facility] Address: [address] [place] [address] Performed By: #### 2 4356-8 ####[facility] LABIA [id number] [place] [address] [place] Urobilinogen Ql (U) 0.2 EU/dL Normal 0.2-1.0 EU/dL [facility] Comment on above: Order Comment: Speci men Type: URINE SPECIMENOrdering Facility: [facility] Address: [address] [place] [address] Performed By: #### 2 4356-8 ####[facility] LABCLIA [id number] [place] [address] [place] WBC LM.HPF (Urine sed) [#/Area] 0-5 /HPF Normal 0-5 /HPF [facility] Comment on above: Order Comment: Speci men Type: URINE SPECIMENOrdering Facility: [facility] Address: [address] [place] [address] Performed By: #### 2 4356-8 ####[facility] LABCLIA [id number] [place] [address] [place] Emergency Department Summary on 06-27-2025 Emergency Department Summary [facility] Medical Records Department [address] [place] [address] Emergency Department Summary 06/27/25 MR#: [id number] Acct: [id number] Name: RICKY MERCER Rep #: [id number] : 1995 30 From: Bruce Santamaria DO PCP: Dr. Emigdio Prince MD Status:DEP ER Location: ED HPI History of Present Illness Chief Complaint: Wound Narrative Narrative: HTN chief complaint and HPI: 30-year-old male with past medical history of anxiety presents for evaluation of infected cyst on his tailbone. Patient states Wednesday he started develop pain on his tailbone. States he saw his primary care physician on Wednesday in which he was diagnosed with an infected cyst. He was placed on Keflex. Patient states the pain has not improved which is why he presents to the emergency department. He denies any previous infected pilonidal cyst or abscesses. Denies any dysuria or abdominal pain. States he has been having normal bowel movements. Review of systems: See HPI Medications: As listed on the chart Allergies: As listed on the chart PFSH: Per chart Vital signs: As listed on the chart. Reviewed. Gen: A O x3, NAD Head: Normocephalic, atraumatic Eyes: No sclera icterus, conjunctiva clear ENT: Moist mucous membranes CV: RRR, no murmurs Resp: Lungs CTA BL, no w/r/c GI: Abd soft, non-distended, non-tender, no r/r/g, patient has a pilonidal pit located in his gluteal cleft without any active drainage or seepage, proximal to the pit is an area of erythema, warmth, and induration. Approximately 3 cm. No abscess or fluctuance. No crepitus or bullae. Musc: Full ROM, no deformity Skin: Warm, dry Neuro: Alert, oriented, grossly intact, sensation intact Psych: Cooperative, appropriate mood and affect PFSH PFSH Medical History Anxiety Home Medications ???Medication ???Instructions ???Recorded ???Last Taken ???Type citalopram 10 mg tablet 10 mg PO DAILY 08/27/19 08/26/19 H istory ondansetron 4 mg disintegrating 4 mg PO Q8H PRN PRN Nausea #10 tab s 08/27/19 Unknown Rx tablet amoxicillin 875 mg-potassium 1 tab PO BID 7 days #14 tabs 06/27 Unknown Rx clavulanate 125 mg tablet Allergy/AdvReac Type Severity Reaction Status Date / Time No Known Allergies Allergy Verified 06/27/25 15:39 Surgical History H/O right knee surgery Social History Smoking Status: Never smoker EXAM Physical Exam Const Vital Signs: 06/27/25 15:37 06/27/25 18:50 Temperature 98.4 F 98.1 F Temperature Source Oral Pulse Rate 86 80 Respiratory Rate 16 18 Blood Pressure 155/88 H 150/58 H Blood Pressure Mean 110 88 Pulse Ox 97 99 Oxygen Delivery Method Room Air MDM MDM MDM Narrative Medical decision making narrative: 30-year-old male with past medical history of anxiety presents for evaluation of infected cyst on his tailbone. Patient states Wednesday he started develop pain on his tailbone. States he saw his primary care physician on Wednesday in which he was diagnosed with an infected cyst. He was placed on Keflex. Patient states the pain has not improved which is why he presents to the emergency department. Patient is nontoxic-appearing. Vitals are stable other than mild hypertension. Afebrile. Physical exam is without abscess or fluctuance. There is a pilonidal pit without seepage, drainage, purulence. Proximal to the pit is an area of erythema, warmth, induration concerning for cellulitis versus developing abscess. Patient is patient failed outpatient management with Keflex. I consulted Dr. Bell to possibly come see the area and to discuss the patient. He recommend changing the antibiotic to Augmentin given there is no abscess for incision and drainage. Recommend discharge home and follow-up in his office. First dose of antibiotics given here. Patient was updated on the results and the plan. He confirmed understanding. Strict return precautions were explained. Patient stable to discharge home. Impression: 1. Pilonidal pit with cellulitis Discharge Plan Triage Chief Complaint: Wound ED Provider: Bruce Santamaria Dx/Rx/DC Orders Clinical Impression: Infected pilonidal cyst Instructions: Pilonidal Cyst Prescriptions: New amoxicillin-pot clavulanate 875-125 mg tablet 1 tab PO BID 7 Days Qty: 14 0RF No Action citalopram 10 MG tablet 10 mg PO DAILY ondansetron 4 MG tablet 4 mg PO Q8H PRN PRN (Reason: Nausea) Qty: 10 0RF Primary Care Provider: Emigdio Prince Referrals: Dipesh Bell MD [Med Staff - Active Staff, General Surgery] - 3-5 Days Emigdio Prince MD [Primary Care Provider, Family Practice] - 3-5 Days (more content not included)... Normal [facility] CNOVon 06-25-2025 CNOV Office Visit (FAMPWS ) RICKY MERCER ([id number]) 1995 M Date Time Provider Department 06/25/25 2:20 PM EMIGDIO PRINCE FAMPWS During your visit today, we recorded the following information about you: Pulse Respiration Blood pressure Weight 80/minute 18/minute 122/76 121 kg Emigdio Prince MD 06/25/2025 2:57 PM Signed Chief Complaint Patient presents with: Derm Problem: Cyst to tailbone, noticed a few days ago, getting bigger and more painful HPI Ricky Mercer is a 30 year old male who presents here today for cyst. Pt c/o possible cyst to tailbone that he noticed a few days ago. No precipitating cause. It is getting bigger and more painful. No drainage. No fever/chills. No prior issues. Sitting or laying down makes pain worse. Has been taking Tylenol. Past medical history, appointments, medications, allergies reviewed. Previous Medical History PAST MEDICAL HISTORY Diagnosis Date Asthma (HCC) Generalized anxiety disorder Previous Surgical History PAST [...] on File Prior to Visit Medication Sig ondansetron orally disintegrating (ZOFRAN ODT) 4 mg disintegrating tablet Take 1 tablet by mouth every 8 hours as needed for nausea/vomiting. benzonatate (TESSALON PERLE) 100 mg capsule Take 1 capsule by mouth three times a day as needed for cough for up to 12 doses. (Patient not taking: Reported on 05/07/2025) aluminum chloride (DRYSOL) 20 % external solution Apply to affected area daily at bedtime. As needed citalopram hydrobromide (CELEXA) 10 mg tablet Take 1 tablet by mouth once daily. No current facility-administered medications on file prior to visit. Social History SOCIAL HISTORY[1] EXAM: BP 122/76 Pulse 80 Resp 18 Wt 121 kg (266 lb 12.1 oz) BMI 36.18 kg/m? General Appearance: Well appearing, alert, in no acute distress, well-hydrated, well nourished.. Skin: Left pilonidal area inflamed, erythematous, swollen; no draiange. Health Maintenance List Covid-19 Vaccine( season) due on 05/07/2025 Depression Screening due on 07/06/2025 Hepatitis C Screening due on 07/06/2025 HIV Screening due on 07/06/2025 Influenza Vaccine(1) due on 03/05/2026 DTaP,Tdap,Td Vaccine(8 - Td or Tdap) due on 03/28/2031 Hepatitis B Vaccine Completed HPV Vaccine Addressed Data reviewed none ASSESSMENT/PLAN: 1. Pilonidal cyst - ICD9: 685.1, ICD10: L05.91 - CONSULT TO GENERAL SURGERY - CEPHALEXIN 500 MG CAPSULE Follow up prn I agree with the Chief Complaint, ROS, and Past Histories independently gathered by the clinical collection support specialist and the remaining scribed note accurately describes my personal service to the patient. Medical Decision Making: Problems: Low: Acute, uncomplicated illness or injury Risk: Moderate: Drug management Medical Decision Making Level: 3 - Low Emigdio Prince MD The documentation for this note was completed by Cherie Escamilla MA acting as scribe for Emigdio Prince MD. June 25, 2025 2:14 PM. Cherie Escamilla MA [1] Social History Tobacco Use Smoking status: Never Smokeless tobacco: Never Vaping Use Vaping status: Never Used Substance Use Topics Alcohol use: No Drug use: No Allergies As of Date: 06/25/2025 (No Known Allergies) Date Reviewed: 06/25/2025 Reviewed by: Cherie Escamilla MA - Fully Assessed Reason for Visit: Derm Problem [33] Cmt: Cyst to tailbone, noticed a few days ago, getting bigger and more painful Primary Visit Diagnosis:Pilonidal cyst [L05.91] Order(s):CONSULT TO GENERAL SURGERY [9011] Order #: [id number]: 1 FUTURE cephALEXin (KEFLEX) 500 mg capsuleTake 1 capsule by mouth four times daily.Disp: 40 capsuleRfl: 0 Prescriptions as of 06/25/2025 - cephALEXin (KEFLEX) 500 mg capsule Take 1 capsule by mouth four times daily. - ondansetron orally disintegrating (ZOFRAN ODT) 4 mg disintegrating tablet Take 1 tablet by mouth every 8 hours as needed for nausea/vomiting. - benzonatate (TESSALON PERLE) 100 mg capsule Take 1 capsule by mouth three times a day as needed for cough for up to 12 doses. - aluminum chloride (DRYSOL) 20 % external solution Apply to affected area daily at bedtime. As needed - citalopram hydrobromide (CELEXA) 10 mg tablet Take 1 tablet by mouth once daily. Problem List As Of Date 06/25/2025 Noted Resolved Excessive sweating [R61] 01/01/2017 Anxiety [F41.9] 01/01/2017 Prescriptions ordered this encoun (more content not included)... Normal [facility] CNOVon 06-21-2025 CNOV Office Visit (FAMPWS ) RICKY MERCER ([id number]) 1995 M Date Time Provider Department 06/21/25 9:00 AM [facility] During your visit today, we recorded the following information about you: Temperature Pulse Respiration Blood pressure 97.6 degrees 88/minute 18/minute 130/82 Weight 120.2 kg Marilu Peterson PA-C 06/21/2025 9:18 AM Signed Chief Complaint Patient presents with: Follow Up: Was seen in [facility] for blood in urine HPI Ricky Mercer is a 30 year old male who presents here today for Above Complaints.. Ricky is a 30-year-old male presenting for follow-up after being seen at [facility] for dysuria. Dysuria: - Seen at [facility] for dysuria; urine culture was negative, but urine dipstick showed hemoglobin. - Completed antibiotic course yesterday. - Symptoms resolved 2-3 days ago. - Initially experienced constant pain, not limited to micturition. - Persistent urgency without actual need to void for several days. - Denies hematuria, discharge, or flank pain. - Mild lower abdominal pain during the first 1-2 days. - denies concerns for STI. Past medical history, appointments, medications, allergies reviewed. Previous Medical History PAST MEDICAL HISTORY Diagnosis Date Asthma (HCC) Generalized anxiety disorder Previous Surgical History PAST [...] on File Prior to Visit Medication Sig ondansetron orally disintegrating (ZOFRAN ODT) 4 mg disintegrating tablet Take 1 tablet by mouth every 8 hours as needed for nausea/vomiting. aluminum chloride (DRYSOL) 20 % external solution Apply to affected area daily at bedtime. As needed citalopram hydrobromide (CELEXA) 10 mg tablet Take 1 tablet by mouth once daily. sulfamethoxazole-trim ethoprim (BACTRIM DS) 800-160 mg per tablet Take 1 tablet by mouth two times a day for 7 days. (Patient not taking: Reported on 06/21/2025) benzonatate (TESSALON PERLE) 100 mg capsule Take 1 capsule by mouth three times a day as needed for cough for up to 12 doses. (Patient not taking: Reported on 05/07/2025) No current facility-administered medications on file prior to visit. Social History SOCIAL HISTORY[1] Review of Symptoms REVIEW OF SYSTEMS Genitourinary: (-) dysuria, (-) hematuria, (-) flank pain SEE HPI EXAM: BP 130/82 (BP Site: Left Arm, BP Position: Sitting, BP Cuff Size: Large Adult) Pulse 88 Temp 36.4 ?C (97.6 ?F) Resp 18 Wt 120.2 kg (265 lb) SpO2 96% BMI 35.94 kg/m? General Appearance: Well appearing, alert, in no acute distress, well-hydrated, well nourished.. Lungs: Lungs clear to auscultation. No wheezing, rhonchi, rales.. Heart: RRR without murmur, gallop, or rubs. No ectopy. Abdomen: Normal abdominal exam, Abdomen soft, non-tender. Bowel sounds normal. No masses, organomegaly. Health Maintenance List Covid-19 Vaccine(2024- season) due on 05/07/2025 Depression Screening due on 07/06/2025 Hepatitis C Screening due on 07/06/2025 HIV Screening due on 07/06/2025 Influenza Vaccine(1) due on 03/05/2026 DTaP,Tdap,Td Vaccine(8 - Td or Tdap) due on 03/28/2031 Hepatitis B Vaccine Completed HPV Vaccine Addressed Data reviewed Latest Ref Rng 06/14/2025 GLUCOSE UA (POCT) Negative mg/dL Negative BILIRUBIN UA (POCT) Negative Negative KETONE UA (POCT) Negative mg/dL Negative SPECIFIC GRAVITY UA (POCT) 1.005 - 1.030 1.020 HEMOGLOBIN/BLOOD UA (POCT) Negative Small ! PH UA (POCT) 4.5 - 8.0 6.0 PROTEIN UA (POCT) Negative mg/dL Negative UROBILINOGEN UA (POCT) Normal E.U./dL 0.2 NITRITE UA (POCT) Negative Negative LEUKOCYTES UA (POCT) Negative Negative COLOR UA (POCT) Yellow CLARITY UA (POCT) Clear Culture No growth (<1,000 CFU/ml) Assessment and Plan 1. Dysuria (R30.0) 2. Microscopic hematuria (R31.29) - Recent episode of dysuria with constant lower abdominal pain and urinary urgency; urinalysis showed hemoglobin, but urine culture was negative. - Completed antibiotic course with resolution of symptoms for the past 2-3 days. - Order repeat urinalysis with microscopy early next week to confirm resolution of hematuria. - If urinalysis is clear and no symptoms recur, no further workup needed. Marilu Peterson PA-C Recording using [employer] software for draft documentation of the visit was discussed with the patient/authorized promotional representative; all questions welcomed and answered. Patient/authorized promotional representative agreed to (more content not included)... Normal [facility] Bacteria Ur Culton 5 Bacteria identified Cx Nom (U) CULTURE, URINE: No growth (<1,000 CFU/ml) Normal [facility] Comment on above: Performed By: #### 6 30-4 ####[facility] LABIA [id number] [address] [place] CNOVon 06-14-2025 CNOV Office Visit (WOUCA) RICKY MERCER ([id number]) 1995 M Date Time Provider Department 06/14/25 2:15 PM PRUDENCIO MONCADA During your visit today, we recorded the following information about you: Temperature Pulse Respiration Blood pressure 97.8 degrees 73/minute 18/minute 139/88 Weight 120.7 kg Prudencio Moncada APRN.CNP 06/14/2025 2:54 PM Signed [facility] Subjective HPI HPI Ricky Mercer is a 30 year old male who presents today for CC of urinary frequency, burning. This started today. Has tried nothing for relief. Symptoms are worsened by nothing. Denies hx of uti in past. Denies std concerns. Possible hx of renal stones 10 years ago, no formal dx. Denies back pain. Denies testicular pain. .Patient presents with: UTI: Burning, bladder pressure x this AM PAST MEDICAL HISTORY Diagnosis Date Asthma (HCC) Generalized anxiety disorder PAST SURGICAL HISTORY Procedure Laterality Date LIPOMA (SMALL) 12/10/2023 left side of head PAST SURGICAL HISTORY OF Right 2012, 2014 Right knee surgery ALLERGIES Patient has no known allergies. MEDICATIONS ondansetron orally disintegrating (ZOFRAN ODT) 4 mg disintegrating tablet Take 1 tablet by mouth every 8 hours as needed for nausea/vomiting. aluminum chloride (DRYSOL) 20 % external solution Apply to affected area daily at bedtime. As needed citalopram hydrobromide (CELEXA) 10 mg tablet Take 1 tablet by mouth once daily. benzonatate (TESSALON PERLE) 100 mg capsule Take 1 capsule by mouth three times a day as needed for cough for up to 12 doses. (Patient not taking: Reported on 05/07/2025) FAMILY HISTORY Problem Relation Age of Onset other (Anxiety) Mother other (Anxiety) Sister other (Anxiety) Brother Heart Maternal Grandmother Diabetes Maternal Grandfather SOCIAL HISTORY[1] Review of Systems Constitutional: Negative for fever. Cardiovascular: Negative for chest pain. Gastrointestinal: Negative for abdominal pain, constipation, diarrhea, nausea and vomiting. Genitourinary: Positive for dysuria, frequency and urgency. Negative for flank pain. Musculoskeletal: Negative for back pain. Objective BP 139/88 Pulse 73 Temp 36.6 ?C (97.8 ?F) Resp 18 Wt 120.7 kg (266 lb 1.5 oz) SpO2 98% BMI 36.09 kg/m? Physical Exam Constitutional: General: He is not in acute distress. Appearance: Normal appearance. He is not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 [place] 08-01-2023 11:40-0500 Heart rate 89 /min Ani Gonzalez APRN.RAILROAD PURCHASING AGENT Work Phone: [facility] 08-01-2023 11:40-0500 Respiratory rate 18 /min Ani Gonzalez APRN.RAILROAD PURCHASING AGENT Work Phone: [facility] 08-01-2023 11:40-0500 SaO2% (BldA) [Mass fraction] 96 % Ani Gonzalez CLINICAL AUDITOR.RAILROAD PURCHASING AGENT Work Phone: [facility] [place] 08-01-2023 11:40-0500 Systolic blood pressure 132 mm[Hg] Ani Gonzalez CLINICAL AUDITOR.RAILROAD PURCHASING AGENT Work Phone: [facility] [place] 06-04-2023 10:51-0400 Body temperature 98.29 [degF] Angel Grubbs APRN.RAILROAD PURCHASING AGENT Work Phone: [facility] [place] 06-04-2023 10:51-0400 Body weight 117.66 kg Angel Grubbs APRN.RAILROAD PURCHASING AGENT Work Phone: [facility] [place] 06-04-2023 10:51-0400 Diastolic blood pressure 79 mm[Hg] Angel Grubbs CLINICAL AUDITOR.RAILROAD PURCHASING AGENT Work Phone: [facility] [place] 06-04-2023 10:51-0400 Heart rate 97 /min Angel Grubbs CLINICAL AUDITOR.RAILROAD PURCHASING AGENT Work Phone: [facility] [place] 06-04-2023 10:51-0400 Respiratory rate 16 /min Angel Grubbs CLINICAL AUDITOR.RAILROAD PURCHASING AGENT Work Phone: [facility] [place] 06-04-2023 10:51-0400 SaO2% (BldA) [Mass fraction] 96 % Angel Grubbs APRN.RAILROAD PURCHASING AGENT Work Phone: [facility] [place] 06-04-2023 10:51-0400 Systolic blood pressure 131 mm[Hg] Angel Grubbs CLINICAL AUDITOR.RAILROAD PURCHASING AGENT Work Phone: [facility] [place] 12-15-2022 15:33-0400 Body weight 118.75 kg Emigdio Prince MD Work Phone: [facility] [place] 12-15-2022 15:33-0400 Diastolic blood pressure 84 mm[Hg] Emigdio Prince MD Work Phone: [facility] [place] 12-15-2022 15:33-0400 Heart rate 80 /min Emigdio Prince MD Work Phone: [facility] [place] 12-15-2022 15:33-0400 Respiratory rate 16 /min Emigdio Prince MD Work Phone: [facility] [place] 12-15-2022 15:33-0400 Systolic blood pressure 136 mm[Hg] Emigdio Prince MD Work Phone: [facility] [place] 05-27-2022 17:54-0400 Body height 180.3 cm Emigdio Prince MD Work Phone: [facility] [place] 05-27-2022 17:54-0400 Body weight 112.63 kg Emigdio Prince MD Work Phone: [facility] [place] 05-27-2022 17:54-0400 Diastolic blood pressure 98 mm[Hg] Emigdio Prince MD Work Phone: [facility] [place] 05-27-2022 17:54-0400 Heart rate 82 /min Emigdio Prince MD Work Phone: [facility] [place] 05-27-2022 17:54-0400 Respiratory rate 16 /min Emigdio Prince MD Work Phone: [facility] [place] 05-27-2022 17:54-0400 SaO2% (BldA) [Mass fraction] 95 % Emigdio Prince MD Work Phone: [facility] [place] 05-27-2022 17:54-0400 Systolic blood pressure 140 mm[Hg] Emigdio Prince MD Work Phone: [facility] [place] Encounters Encounter Date Encounter Type Care Provider Facility Start: 07-13-2025 End: 07-13-2025 ambulatory TAURUS TURNER Facility:[facility] Start: 07-09-2025 End: 07-09-2025 ambulatory ANGEL GRUBBS Facility:[facility] Start: 07-09-2025 Encounter for genera l adult medical examination without abnormal findings ANGEL GRUBBS [facility] Start: 07-04-2025 End: 07-04-2025 ambulatory [facility] Facility:[facility] Start: 07-03-2025 End: 07-03-2025 ambulatory [facility] Facility:[facility] Start: 07-03-2025 End: 07-03-2025 ambulatory [facility] Facility:[facility] Start: 06-27-2025 End: 06-27-2025 Emergency department patient visit [facility] Facility:[facility] Start: 06-25-2025 End: 06-25-2025 ambulatory [facility] Facility:[facility] Start: 06-21-2025 End: 06-21-2025 ambulatory [facility] Facility:[facility] Start: 06-14-2025 End: 06-14-2025 ambulatory [facility] Facility:[facility] Start: 05-07-2025 End: 05-07-2025 Patient encounter procedure Prudencio Moncada APRN.RAILROAD PURCHASING AGENT Work Phone: [facility] Comment on above: Nausea (Primary Dx) Start: 05-07-2025 End: 05-08-2025 ambulatory [facility] Facility:[facility] Start: 04-07-2025 End: 04-07-2025 Emergency department patient visit Dr. Emigdio Prince MD Work Phone: -Emergency Department Work Phone: Start: 12-10-2024 End: 12-10-2024 ambulatory [facility] Facility:[facility] Start: 12-10-2024 End: 12-10-2024 Patient encounter procedure Joyce Chao APRN.RAILROAD PURCHASING AGENT Work Phone: [facility] Comment on above: Lower respiratory in fection (Primary Dx) Start: 11-08-2024 End: 01-08-2025 Follow-up encounter Yessy Vaughan APRN.RAILROAD PURCHASING AGENT Work Phone: [facility] Start: 11-08-2024 End: 11-08-2024 ambulatory [facility] Facility:[facility] Start: 11-08-2024 End: 11-08-2024 Patient encounter procedure Prudencio Moncada APRN.RAILROAD PURCHASING AGENT Work Phone: [facility] Comment on above: Sore throat (Primary Dx); URI, acute Start: 09-04-2024 End: 09-04-2024 ambulatory [facility] Facility:[facility] Start: 09-04-2024 End: 09-04-2024 Patient encounter procedure Emigdio Prince MD Work Phone: [facility] [place] Comment on above: Cough, unspecified t ype (Primary Dx); Sore throat; Chest pain on breathing; Bronchitis Start: 07-06-2024 End: 07-06-2024 Patient encounter procedure Emigdio Prince MD Work Phone: [facility] Comment on above: Wellness examination (Primary Dx); Excessive sweating; Anxiety; Screening for depression; Pain in both hands; Pain in both wrists Start: 07-06-2024 End: 07-06-2024 Patient encounter status Emigdio Prince MD Work Phone: [facility] Start: 07-03-2024 End: 07-04-2024 Refill Angel Grubbs APRN.RAILROAD PURCHASING AGENT Work Phone: [facility] Comment on above: Refill Request Start: 01-14-2024 Refill Angel MARCH RN.RAILROAD PURCHASING AGENT Work Phone: 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, including poison veronica, sumac, and oak (Primary Dx) Start: 01-03-2024 End: 01-03-2024 Patient encounter procedure Mindy Jones MD Work [...] Telephone encounter Emigdio sarkar MD Work Phone: [facility] [place] Start: 10-20-2023 ambulatory Emigdio au MD Work Phone: [facility] [place] Comment on above: Cyst behind left ear Start: 08-01-2023 End: 08-01-2023 Patient encounter procedure Ani Gonzalez APRN.RAILROAD PURCHASING AGENT Work Phone: [facility] Comment on above: Bacterial sinusitis (Primary Dx) Start: 06-04-2023 End: 06-04-2023 Office outpatient visit 15 minutes Angel Grubbs APRN.RAILROAD PURCHASING AGENT Work Phone: [facility] [place] Comment on above: Jock itch (Primary D x) Start: 12-15-2022 End: 12-15-2022 Patient encounter procedure Emigdio Prince MD Work Phone: [facility] Comment on above: Rectal bleeding (Dai logan Dx); Eczema, unspecified type; Sebaceous cyst Start: 10-19-2022 End: 10-19-2022 Nursing evaluation of patient and report Mi Nurse Work Phone: [facility] [place] Comment on above: Need for vaccination (Primary Dx) Start: 05-27-2022 End: 05-27-2022 Patient encounter procedure Emigdio Prince MD Work Phone: [facility] [place] Comment on above: Wellness examination (Primary Dx); Anxiety; Excessive sweating; Need for vaccination Start: 05-27-2022 End: 05-27-2022 Patient encounter status Emigdio Prince MD Work Phone: [facility] Start: 05-17-2022 Refill Angel MARCH RN.RAILROAD PURCHASING AGENT Work Phone: [facility] Comment on above: Refill Request Procedures Date Procedure Procedure Detail Performing Clinician Start: 11-08-2024 STREP A MOLECULAR (POC) Angel Sharpe MD Work Phone: Start: 07-06-2024 Adult depression screening assessment Emigdio Prince MD Work Phone: Start: 05-24-2022 Adult depression screening assessment Emigdio Prince MD Work Phone: Start: 03-28-2021 Adult depression screening assessment Angel Grubbs APRN.RAILROAD PURCHASING AGENT Work Phone: H/O: surgery Status post skin and subcutaneous tissue surgery Mindy Jones MD Work Phone: Plan of Treatment Date Care Activity Detail Author Start: 03-28-2031 Urine microalbumin profile [facility] Start: 07-06-2025 Covid-19 Vaccine ( season) Covid-19 Vaccine ( season) [facility] Comment on above: Postponed from 05/07 (Declined at this time) Start: 07-06-2025 Depression Screening Depression Scre ening [facility] Start: 07-06-2025 Hepatitis C screening Hepatitis C Wi alex [facility] Comment on above: Postponed from 04/11 (Declined at this time) Start: 07-06-2025 HIV screening HIV Screening [facility] Comment on above: Postponed from 04/11 (Declined at this time) Start: 05-07-2025 Influenza vaccination Influenza Vacc ine (#1) [facility] Start: 04-07-2025 End: 04-07-2025 [facility] Start: 03-05-2025 Influenza vaccination Influenza Vacc ine (#1) [facility] Comment on above: Postponed from 05/07 (Declined at this time) Start: 07-06-2024 End: 07-06-2024 Patient encounter procedure 07/06/2024 3:00 PM EDT Office Visit [facility] [address] [place] [address] Emigdio Prince MD [address] [place] [address] General physical, prescription refills [facility] [place] Comment on above: General physical, pr escription refills Start: 06-28-2024 Covid-19 Vaccine () Covid-19 Vaccine () [facility] Comment on above: Postponed from 05/07 (Declined at this time) Start: 05-07-2024 Covid-19 Vaccine () Covid-19 Vaccine () [facility] Start: 05-07-[address] [facility] Start: 03-05-2024 Influenza vaccination Influenza Vacc ine (#1) [facility] Comment on above: Postponed from 05/07 (Declined at this time) Start: 12-16-2023 COVID-19 VACCINE (4 - Booster for Moderna series) COVID-19 VACCINE (4 - Booster for Moderna series) [facility] Comment on above: Postponed from 12/12 (Declined at this time) Start: 12-16-2023 Covid-19 Vaccine (4 - Moderna series) Covid-19 Vaccine (4 - Moderna series) [facility] Comment on above: Postponed from 12/12 (Declined at this time) Start: 09-06-2023 Behavioral Health Screening Behavioral Health Screening [facility] Start: 09-06-2023 Depression Assessment Depression Ass essment [facility] Start: 05-27-2023 HEPATITIS C SCREENING HEPATITIS C SC REENING [facility] Comment on above: Postponed from 04/11 (Declined at this time) Start: 05-27-2023 HIV SCREENING HIV SCREENING [facility] Comment on above: Postponed from 04/11 (Declined at this time) Start: 05-24-2023 Adult depression screening assessment DEPRESSION SCREENING [facility] Start: 05-07-[address] [facility] Start: 11-23-2022 9vhpv vacc 2/3 dose sched im use HUMAN PAPILLOMAVIRUS 9-VALENT HPV IM Immunization/Injection Routine Need for vaccination Expected: 11/23/2022 (Approximate) [facility] Work Phone: Comment on above: Expected: 11/23/2022 (Approximate) Start: 09-26-2022 HPV VACCINE (3 - Mal e 3-dose series) HPV VACCINE (3 - Male 3-dose series) [facility] Start: 09-06-2022 DEPRESSION ASSESSMENT DEPRESSION ASS ESSMENT [facility] Start: 07-26-2022 9vhpv vacc 2/3 dose sched im use HUMAN PAPILLOMAVIRUS 9-VALENT HPV IM Immunization/Injection Routine Need for vaccination Expected: 07/26/2022 (Approximate) [facility] Work Phone: Comment on above: Expected: 07/26/2022 (Approximate) Start: 05-07-2022 Influenza vaccination INFLUENZA (#1) [facility] Start: 03-28-2022 Adult depression screening assessment DEPRESSION SCREENING [facility] Start: 12-12-2021 COVID-19 VACCINE (4 - Booster for Moderna series) COVID-19 VACCINE (4 - Booster for Moderna series) [facility] Start: 06-03-2021 COVID-19 VACCINE (3 - Booster for Moderna series) COVID-19 VACCINE (3 - Booster for Moderna series) [facility] Start: 08-03-2017 HPV VACCINE (2 - Mal e 3-dose series) HPV VACCINE (2 - Male 3-dose series) [facility] Start: 2014 Depression Screening Depression Scre ening [facility] Start: 2014 HEPATITIS C SCREENING HEPATITIS C [facility] Start: 2014 Hepatitis C screening Hepatitis C [facility] Start: 2014 HIV SCREENING HIV SCREENING [facility] Start: 2014 HIV screening HIV Screening [facility] Start: 2010 PEDS TO ADULT TRANSITION ANNUAL ASSESSMENT PEDS TO ADULT TRANSITION ANNUAL ASSESSMENT [facility] Start: 2008 PEDS TO ADULT TRANSITION INITIAL DISCUSSION PEDS TO ADULT TRANSITION INITIAL DISCUSSION [facility] Start: 2006 MENINGOCOCCAL B: Consider based on risk (1 of 2 - Risk Bexsero 2-dose series) MENINGOCOCCAL B: Consider based on risk (1 of 2 - Risk Bexsero 2-dose series) [facility] COVID & INFLUENZA A/ B & RSV PCR, ROUTINE COVID & INFLUENZA A/B & RSV PCR, ROUTINE Microbiology Routine URI, acute Ordered: 11/08/2024 [facility] Work Phone: Comment on above: Ordered: 11/08/2024 Patient Education [facility] Work Phone: SURGICAL PATHOLOGY [facility] Work Phone: Comment on above: Release Upon Orderin g for 1 Occurrences starting 12/10/2023 [facility] Immunizations Immunization Date Immunization Notes Care Provider Fa [facility] 01-26-2023 Human Papillomavirus 9-valent vaccine Angel Grubbs APRN.RAILROAD PURCHASING AGENT Work Phone: [facility] Work Phone: 10-19-2022 Human Papillomavirus 9-valent vaccine Mi Nurse Work Phone: [facility] Work Phone: 05-27-2022 Human Papillomavirus 9-valent vaccine Emigdio Prince MD Work Phone: [facility] 03-28-2021 tetanus toxoid, redu amelia diphtheria toxoid, and acellular pertussis vaccine, adsorbed Angel Grubbs CLINICAL AUDITOR.RAILROAD PURCHASING AGENT Work Phone: [facility] 01-01-2021 COVID-19 vaccine, fu ll dose (MODERNA) Angel Grubbs CLINICAL AUDITOR.RAILROAD PURCHASING AGENT Work Phone: [facility] Work Phone: 12-04-2020 COVID-19 vaccine, fu ll dose (MODERNA) Angel Grubbs CLINICAL AUDITOR.RAILROAD PURCHASING AGENT Work Phone: [facility] Work Phone: 07-05-2018 influenza virus vacc ine, unspecified formulation Angel Grubbs CLINICAL AUDITOR.[facility] Work Phone: [facility] 11-02-2011 hepatitis A vaccine, pediatric/adolescent dosage, 2 dose schedule Angel Felix CLINICAL AUDITOR.RAILROAD PURCHASING AGENT Work Phone: [facility] Work Phone: 11-02-2011 varicella virus vaccine Brenda e Felix CLINICAL AUDITOR.[facility] Work Phone: [facility] Work Phone: 04-24-2011 hepatitis A vaccine, pediatric/adolescent dosage, 2 dose schedule Angel Felix CLINICAL AUDITOR.[facility] Work Phone: [facility] Work Phone: 04-24-2011 meningococcal polysaccharide (groups A, C, Y and W-135) diphtheria toxoid conjugate vaccine (MCV4P) Angel Felix CLINICAL AUDITOR.[facility] Work Phone: [facility] Work Phone: 11-09-2008 tetanus toxoid, redu amelia diphtheria toxoid, and acellular pertussis vaccine, adsorbed Angel Felix CLINICAL AUDITOR.[facility] Work Phone: [facility] Work Phone: 04-20-2001 diphtheria, tetanus toxoids and acellular pertussis vaccine, unspecified formulation Angel Felix CLINICAL AUDITOR.[facility] Work Phone: [facility] Work Phone: 04-20-2001 poliovirus vaccine, inactivated Angel Felix CLINICAL AUDITOR.RAILRO[employer] PURCHASING AGENT Work Phone: [facility] Work Phone: 04-14-2000 measles, mumps and rubella virus vaccine Angel Felix CLINICAL AUDITOR.[facility] Work Phone: [facility] Work Phone: 04-14-2000 varicella virus vaccine Brenda e Felix CLINICAL AUDITOR.RAILROAD PURCHASING AGENT Work Phone: [facility] Work Phone: 01-09-1998 diphtheria, tetanus toxoids and acellular pertussis vaccine, unspecified formulation Angel Felix CLINICAL AUDITOR.[facility] Work Phone: [facility] Work Phone: 08-22-1997 haemophilus influenz ae type b conjugate and Hepatitis B vaccine Angel Felix CLINICAL AUDITOR.RAILRO[employer] PURCHASING AGENT Work Phone: [facility] Work Phone: 08-22-1997 haemophilus influenz ae type b vaccine, PRP-T conjugate Angel Grubbs CLINICAL AUDITOR.RAILROAD PURCHASING AGENT Work Phone: [facility] Work Phone: 08-22-1997 hepatitis B vaccine, pediatric or pediatric/adolescent dosage Angel Grubbs CLINICAL AUDITOR.[facility] Work Phone: [facility] Work Phone: 08-22-1997 measles, mumps and rubella virus vaccine Angel Felix CLINICAL AUDITOR.[facility] Work Phone: [facility] Work Phone: 08-16-1997 measles, mumps and rubella virus vaccine Angel Felix CLINICAL AUDITOR.[facility] Work Phone: [facility] Work Phone: 01-03-1997 diphtheria, tetanus toxoids and acellular pertussis vaccine, unspecified formulation Angel Grubbs CLINICAL AUDITOR.[facility] Work Phone: [facility] Work Phone: 01-03-1997 haemophilus influenz ae type b vaccine, conjugate unspecified formulation Angel Grubbs CLINICAL AUDITOR.RAILRO[employer] PURCHASING AGENT Work Phone: [facility] Work Phone: 01-03-1997 trivalent poliovirus vaccine, live, oral Angel Grubbs CLINICAL AUDITOR.[facility] Work Phone: [facility] Work Phone: 1996 DTP-Haemophilus influenzae type b conjugate vaccine Angel Grubbs CLINICAL AUDITOR.RAILROAD PURCHASING AGENT Work Phone: [facility] Work Phone: 1996 haemophilus influenz ae type b vaccine, PRP-T conjugate Angel Felix CLINICAL AUDITOR.RAILROAD PURCHASING AGENT Work Phone: [facility] Work Phone: 1996 trivalent poliovirus vaccine, live, oral Angel Felix CLINICAL AUDITOR.RAILROAD PURCHASING AGENT Work Phone: [facility] [facility] Work Phone: 1995 DTP-Haemophilus influenzae type b conjugate vaccine Angel Felix CLINICAL AUDITOR.[facility] Work Phone: [facility] Work Phone: 1995 haemophilus influenz ae type b vaccine, PRP-T conjugate Angel Felix CLINICAL AUDITOR.[facility] Work Phone: [facility] Work Phone: 1995 hepatitis B vaccine, pediatric or pediatric/adolescent dosage Angel Felix CLINICAL AUDITOR.[facility] Work Phone: [facility] Work Phone: 1995 trivalent poliovirus vaccine, live, oral Angel Felix CLINICAL AUDITOR.[employer] Work Phone: [facility] Work Phone: 1995 hepatitis B vaccine, pediatric or pediatric/adolescent dosage Angel Felix CLINICAL AUDITOR.[facility] Work Phone: [facility] Work Phone: Payers Date Payer Category Payer Self-pay 2022 Private Health Insurance MMO SUP ERMED O [id number] 2022 Unknown [id number] 2019 Unknown [id number] Private Health Insurance [id number] Unknown [id number] Unknown [id number] Unknown [id number] Social History Date Type Detail Facility Start: 01-03-2018 End: 06-27-2025 Tobacco smoking status NHIS Never smoked tobacco [facility] Start: 01-03-2018 End: 05-27-2022 Tobacco use and exposure Smokeless tobacco non-user [facility] Start: 03-28-2021 End: 12-10-2024 Alcohol intake Current non-drinker of alcohol (finding) [facility] Start: 1995 Sex Assigned At Not on file [facility] Start: 05-24-2022 End: 12-04-2022 History SDOH Alcohol Frequency 5 [facility] Start: 05-24-2022 End: 12-04-2022 History SDOH Alcohol Std Drinks 1 [facility] Start: 05-24-2022 End: 12-04-2022 History SDOH Social Connections Get Together 2 [facility] Start: 05-24-2022 End: 12-04-2022 History SDOH Social Connections Living 3 [facility] Start: 05-24-2022 History SDOH Physica l Activity DPW 4 [facility] Start: 05-17-2022 End: 05-27-2022 Exposure to SARS-CoV-2 (event) Not sure [facility] Start: 12-04-2022 History SDOH Social Connections Roman Catholic 98 [facility] Start: 12-04-2022 End: 01-25-2023 History of Social function [facility] Start: 12-04-2022 End: 01-25-2023 Social connection and isolation panel [facility] Start: 11-19-2016 How often do you att end jew or sikhism services? Patient refused [facility] Do you belong to any clubs or organizations such as jew groups, unions, fraternal or athletic groups, or school groups? No [facility] Are you now , , , , never or living with a partner? [facility] How often to you hav e a drink containing alcohol? 4 or more times a week [facility] How many standard dr inks containing alcohol do you have on a typical day? 1 or 2 [facility] How often do you hav e 6 or more drinks on 1 occasion? Never [facility] Do you feel stress - tense, restless, nervous, or anxious, or unable to sleep at night because your mind is troubled all the time - these days [OSQ] Only a little [facility] (I/We) worried wheth er (my/our) food would run out before (I/we) got money to buy more. Never true [facility] Start: 1995 Sex Assigned At Male W [facility] Mental Status Date Assessment Result Facility 04-07-2025 Cognitive function Voice/Name [facility] Work Phone: Clinical Notes 05-18-2022 to 07-13-2025 Note Date & Type Note Facility 07-13-2025 Note HNO ID: [id number] Author: TAURUS TURNER APRN.[employer] Service: ? Author Type: Nurse Practitioner Type: Progress Notes Filed: 07/13/2025 13:48 Note Text: I have communicated my name and active licensure. The patient's identity and physical location were verified at the time of this visit. Either the patient or their legal promotional representative has been informed of the risks and benefits of -- and alternatives to -- treatment through a remote evaluation and consents to proceed with the evaluation remotely. Vasectomy (Voluntary Sterilization) Consult This is a virtual visit using [facility] Video Visit. It required patient-provider interaction for the medical decision making as documented below. Chief Complaint: Here for vasectomy consult HPI: Ricky Mercer is a 30 year old male who presents today, referred by self, for a consultation for elective bilateral vasectomy. He has voluntarily decided to have sterilization. He is . He has fathered 2 children. Patient states unequivocal desire to never father a child in the future: Yes Previous inguinal/urological operative history: No History of UTI: No He is voiding with adequate stream, denies hematuria or dysuria, denies incontinence, and denies flank pain. Onset: Years Duration:Years Location:Vas Deferens bilateral Severity: mild Quality:Fertility Context:Sexual Activity Timing:Constantly Modifying factors: Control Associated signs and symptoms: no associated symptoms Family history of prostate cancer: No I have reviewed the following: MEDICATIONS ALLERGIES No Known Allergies PAST MEDICAL HISTORY Diagnosis Date Asthma (HCC) Generalized anxiety disorder PAST SURGICAL HISTORY Procedure Laterality Date LIPOMA (SMALL) 12/10/2023 left side of head PAST SURGICAL HISTORY OF Right 2012, 2014 Right knee surgery FAMILY HISTORY Problem Relation Age of Onset other (Anxiety) Mother other (Anxiety) Sister other (Anxiety) Brother Heart Maternal Grandmother Diabetes Maternal Grandfather Social History Tobacco Use Smoking status: Never Smokeless tobacco: Never Vaping Use Vaping status: Never Used Substance Use Topics Alcohol use: No Drug use: No REVIEW OF SYSTEMS PAIN ASSESSMENT: Negative for pain, no history of chronic pain, and no current treatment for a chronic pain condition. GENERAL: No weight loss, malaise or fevers. : See HPI HEMATOLOGY/LYMPHOLOGY: Negative for prolonged bleeding, bruising easily or swollen nodes. No bleeding disorders. PHYSICAL EXAMINATION: Deferred to vasectomy procedure date. No results found for: PSA, PSAPER MEDICAL DECISION MAKING: He was given the link for the online [facility] Vasectomy Video and he has watched the video. The printed brochure with written information will be mailed to his home address: No Shaving of entire scrotum and lower pubic hair are understood Need to avoid aspirin, NSAID's and other blood thinners 7 days before procedure. Need to avoid strenuous activity until recovered, ice packs emphasized. Aware that procedure may be stopped and re-scheduled to the OR, if deemed necessary. 1:2000 rate of recanalization acknowledged and accepted by patient. Risk of after vasectomy is approximately 1 in 2000 for men who have had post vasectomy azoospermia or rare non motile sperm Patient understands previously produced sperm are capable of fertility until semean analysis confirms sterility checked 8-16 weeks following the procedure. He should use alternative contraception and consider himself fully capable of paternity until we notify him that no live sperm are present. He has also been made aware that occasional delayed cases of recanalization have been reported, so there is never the absolute impossibility of paternity. He understands that if at three month semen analysis demonstrates live sperm, he must repeat this monthly until sterility is confirmed. If this does not occur, repeat vasectomy would be required. Patient states unequivocal desire to never father a child in the future. Permanence fully understood. Aware other options of contraception are available There is a < 1% risk of needing a repeat vasectomy. There are options to retrieve sperm after vasectomy, but these are not always successful. Postoperatively, men should refrain from ejacualtion for one week post vasectomy. This is to allow the surgical site to heal and occlusion to form The risk of surgical complication such as symptomatic hematoma and infection or chronic scrotal pain occurs in 1-2% of men. Aware of the rare risk of testicle injury Patient was given instructions on when to contact the office Patient questions answered. Patient is aware a physical exam will be done at the time of the procedure appointment and the procedure will be cancelled if the provider determines the procedure cannot be done in the office a (more content not included)... [facility] 07-09-2025 Note HNO ID: [id number] Author: ANGEL GRUBBS APRN.[facility] Service: ? Author Type: Nurse Practitioner Type: Progress Notes Filed: 07/09/2025 08:17 Note Text: Chief Complaint Patient presents with: Physical: Referral for Vasectomy HPI Ricky Mercer is a 30 year old male who presents here today for physical and referral. Ricky Mercer is a 30-year-old male presenting for a physical examination and a referral for a vasectomy. 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 He is currently using Drysol for hyperhidrosis, which he applies every 2 weeks. Initially, he applied it once weekly at night and showered the following morning, avoiding deodorant for the first day to prevent irritation. This regimen has effectively managed his symptoms. He is also taking Celexa 10 mg daily, which he reports is well-tolerated. He recently completed a course of Augmentin and has a prescription for Zofran, which he keeps on hand. Ricky acknowledges a need to lose weight and reports that his primary form of exercise is caring for his 2-year-old child. He tries to stay active during the summer. He has been making dietary changes over the past year, including reducing fried foods and sugar intake, and primarily eats at home. He denies any specific diet but is mindful of his saturated fat intake. He denies consuming excessive fast food. He has a family history of heart problems in his mother but denies any family history of diabetes. He works in [employer] and currently resides in [place]. Past medical history, appointments, medications, allergies reviewed. Previous Medical History PAST MEDICAL HISTORY Diagnosis Date Asthma (HCC) Generalized anxiety disorder Previous Surgical History PAST [...] on File Prior to Visit Medication Sig ondansetron orally disintegrating (ZOFRAN ODT) 4 mg disintegrating tablet Take 1 tablet by mouth every 8 hours as needed for nausea/vomiting. aluminum chloride (DRYSOL) 20 % external solution Apply to affected area daily at bedtime. As needed citalopram hydrobromide (CELEXA) 10 mg tablet Take 1 tablet by mouth once daily. No current facility-administered medications on file prior to visit. Social History SOCIAL HISTORY[1] REVIEW OF SYSTEMS: as above Reviewed relevant PMHx, PSHx, Social Hx, current medications and allergies. Review of Symptoms Skin: (+) excessive sweating, (+) skin dryness, (+) skin chafing EXAM: BP 120/76 Pulse 78 Resp 16 Ht 177.8 cm (5' 10) Wt 118.3 kg (260 lb 12.8 oz) BMI 37.42 kg/m? General Appearance: Well appearing, alert, in no acute distress, well-hydrated, well nourished. and Overweight. Head: Normocephalic, no masses, lesions, tenderness or abnormalities. Eyes: Anicteric sclera. Pupils are equally round and reactive to light. Extraocular movements are intact. . Ears: External ears normal, canals clear. Nose/Sinuses: Nares normal, septum midline, mucosa normal, no drainage or sinus tenderness. Oropharynx: Lips, mucosa, and tongue normal, teeth and gums normal, oropharynx normal. Neck: Supple, no adenopathy; thyroid symmetric, normal size Lungs: Lungs clear to auscultation. No wheezing, rhonchi, rales.. Heart: RRR without murmur, gallop, or rubs. No ectopy. Abdomen: Normal abdominal exam, Abdomen soft, non-tender. Bowel sounds normal. No masses, organomegaly. Extremities: No deformities, edema Health Maintenance List Hepatitis C Screening Never done HIV Screening Never done Influenza Vaccine(1) due on 03/05/2026 Covid-19 Vaccine( season) due on 07/09/2026 Depression Screening due on 07/09/2026 DTaP,Tdap,Td Vaccine(8 - Td or Tdap) due on 03/28/2031 Hepatitis B Vaccine Completed HPV Vaccine Addressed Data reviewed None 1. Wellness examination (Z00.00) Routine annual physical exam for a 30-year-old male; vital signs within normal limits; BMI elevated. - Ordered screening labs: Hepatitis C, HIV, cholesterol, and metabolic profile. - Discussed importance of maintaining a healthy diet and regular exercise; advised monitoring caloric intake, especially from snacks. - Follow-up in 1 year or as needed. 2. Vasectomy evaluation (Z30.09) Patient requests referral for vasectomy following multiple miscarriages in the past year. - Referred to urology for initial consultation and risk assessment. - Explained procedure, including its permanent nature, use (more content not included)... [facility] 07-04-2025 Note HNO ID: [id number] Author: FLOR BURGESS RN Service: ? Author Type: Registered Nurse Type: Progress Notes Filed: 07/04/2025 10:46 Note Text: Removed packing from IANDD site. Painful per patient. Small amount of red drainage. No purulent drainage. Instructions given on how to change dressing to and patient. voiced that her sister is a nurse and can probably assist with dressing changes. Left office in good condition, ambulatory. [facility] 07-03-2025 Note HNO ID: [id number] Author: MICHELLE JORDAN MD Service: ? Author Type: Physician Type: Progress Notes Filed: 07/03/2025 11:34 Note Text: Preoperative diagnosis: Pilonidal abscess Postoperative diagnosis: The same Procedure: Incision and drainage of pilonidal abscess (simple) Surgeon: Michelle Procedure: Pilonidal area was sterilely prepped and draped in usual fashion 1% lidocaine plain was injected. I opened the abscess area and extended it down towards the midline where a punctate sinus was located. A fair amount of pus did come out of it total length of the incision was approximately 4 cm and this extended all the way down to the presacral fascia. I irrigated this out with peroxide. 4 x 4 was placed without difficulty. Sterile dressings were applied. The patient tolerated the procedure well. Patient will come back tomorrow for a dressing change. [facility] 07-03-2025 Note HNO ID: [id number] Author: SARY AGUILAR MA Service: ? Author Type: Pantograph Ii Engraver Type: Progress Notes Filed: 07/03/2025 11:34 Note Text: REVIEW OF SYSTEMS: General: The patient denies [...] shortness of breath, and denies coughing up blood. Gastrointestinal: The patient denies difficulty swallowing, denies [...] stroke/TIA. Psychiatric: The patient denies psychiatric medications, NOTES depression, and denies voices, denies substance abuse. [...] back pain/injury, denies back problems, denies sciatica, denies knee/foot trouble, denies arthritis, or denies gout. When was patient's last Mammogram screening? N/A Last Colonoscopy: N/A Sary Aguilar MA [facility] 07-03-2025 Note HNO ID: [id number] Author: FLOR BURGESS RN Service: ? Author Type: Registered Nurse Type: Progress Notes Filed: 07/03/2025 11:34 Note Text: UNIVERSAL PROTOCOL / SAFETY CHECKLIST Procedure to be Performed: Incision and Drainage of pilonidal Abscess. Sign In: A Moment of CARE was completed. Appropriate PPE (Personal Protective Equipment) worn by all providers involved with the procedure. Special equipment not required. Patient/Surrogate Stated/Verified: Patient name, Date of , Relevant allergies, and The intended procedure Time Out: Relevant labs, photos, and/or imaging studies have been reviewed. Intended patient and procedure match the source document(s) (e.g. consent, HANDP, associated studies [imaging, pathology]) match the intended patient and procedure. Consent obtained and matches the intended procedure. Yes. Correct side/site is not applicable. Medications required for this procedure are verified. Fire risk assessed and is not applicable. Implants: are not applicable. Sign Out: Specimens not collected. All instruments, equipment, possible retained foreign bodies are accounted for. Yes. The post-procedure plan of care has been communicated to the patient or surrogate. [facility] 06-27-2025 Discharge summary [facility] 06-27-2025 Discharge summary Note Date/Time June 27, 2025 7:51pm [facility] Medical Records Department [address] [place] [address] Emergency Department Summary 06/27/25 MR#: [id number] Acct: [id number] Name: RICKY MERCER Rep #:[id number] : 1995 30 From: Bruce agosto DO PCP: Dr. Emigdio Prince MD Status:DE P ER Location: ED HPI History of Present Illness Chief Complaint: Wound Narrative Narrative: HTN chief complaint and HPI: 30-year-old male with past medical history of anxiety presents for evaluation of infected cyst on his tailbone. Patient states Wednesday he started develop pain on his tailbone. States he saw his primary care physician on Wednesday in which he was diagnosed with an infected cyst. He was placed on Keflex. Patient states the pain has not improved which is why he presents to the emergency department. He denies any previous infectedpilonidal cyst or abscesses. Denies any dysuria or abdominal pain. States he has been having normal bowel movements. Review of systems: See HPI Medications: As listed on the chart Allergies: As listed on the chart PFSH: Per chart Vital signs: As listed on the chart. Reviewed. Gen: A&O x3, NAD Head: Normocephalic, atraumatic Eyes: No sclera icterus, conjunctiva clear ENT: Moist mucous membranes CV: RRR, no murmurs Resp: Lungs CTA BL, no w/r/c GI: Abd soft, non-distended, non-tender, no r/r/g, patient has a pilonidal pit located in his gluteal cleft without any active drainage or seepage, proximal tothe pit is an area of erythema, warmth, and induration. Approximately 3 cm. Noabscess or fluctuance. No crepitus or bullae. Musc: Full ROM, no deformity Skin: Warm, dry Neuro: Alert, oriented, grossly intact, sensation intact Psych: Cooperative, appropriate mood and affect [facility] Medical History Anxiety Home Medications ?Medication ?Instructions ?Recorded ?Last Taken ?Type citalopram 10 mg tablet 10 mg PO DAILY 08/27/1908/07 History ondansetron 4 mg disintegrating 4 mg PO Q8H PRN PRN Na usea #10 tabs 08/27/19 Unknown Rx tablet amoxicillin 875 mg-potassium 1 tab PO BID 7 days #14 t abs 06/27/25 Unknown Rx clavulanate 125 mg tablet Allergy/AdvReac Type Severity Reaction Status Date / Time No Known Allergies Allergy Verified 06/27/25 15:39 Surgical History H/O right knee surgery Social History Smoking Status: Never smoker EXAM Physical Exam Const Vital Signs: 06/27/25 15:37 06/27/25 18:50 Temperature 98.4 F 98.1 F Temperature Source Oral Pulse Rate 86 80 Respiratory Rate 16 18 Blood Pressure 155/88 H 150/58 H Blood Pressure Mean 110 88 Pulse Ox 97 99 Oxygen Delivery Method Room Air MDM MDM MDM Narrative Medical decision making narrative: 30-year-old male with past medical history of anxiety presents for evaluation ofinfected cyst on his tailbone. Patient states Wednesday he started develop pain on his tailbone. States he saw his primary care physician on Wednesday in which hewas diagnosed with an infected cyst. He was placed on Keflex. Patient states the pain has not improved which is why he presents to the emergency department. Patient is nontoxic-appearing. Vitals are stable other than mild hypertension. Afebrile. Physical exam is without abscess or fluctuance. There is a pilonidalpit without seepage, drainage, purulence. Proximal to the pit is an area of erythema, warmth, induration concerning for cellulitis versus developing abscess. Patient is patient failed outpatient management with Keflex. I consulted Dr. Bell to possibly come see the area and to discuss the patient. He recommend changing the antibiotic to Augmentin given there is no abscess for incision and drainage. Recommend discharge home and follow-up in his office. First dose of antibiotics given here. Patient was updated on the results and the plan. He confirmed understanding. Strict return precautions were explained. Patient stable to discharge home. Impression: 1. Pilonidal pit with cellulitis Discharge Plan Triage Chief Complaint: Wound ED Provider: Bruce Santamaria Dx/Rx/DC Orders Clinical Impression: Infected pilonidal cyst Instructions: Pilonidal Cyst Prescriptions: New amoxicillin-pot clavulanate 875-125 mg tablet 1 tab PO BID 7 Days Qty: 14 0RF No Action citalopram 10 MG tablet 10 mg PO DAILY ondansetron 4 MG tablet 4 mg PO Q8H PRN PRN (Reason: Nausea) Qty: 10 0RF Primary Care Provider: Emigdio Prince Referrals: Dipesh Bell MD [Med Staff - Active Staff, General Surgery] - 3-5 Days Emigdio Prince MD [Primary Care Provider, Family Practice] - 3-5 Days Activity Restrictions/Additional Instructions: Follow-up with general surgery. Stop taking your antibiotics that was prescribed by your primary care physician. Take the new antibiotic prescribed to you. You received your first dose here in the emergency department. Return back to the ED if symptoms change or worsen. Print Language: Citizen Of [place] Disposition Disposition: Home, Self Care Discharge Date/Time: 06/27/25 18:51 What to do if you have Problems For any increased pain, shortness of breath, bleeding, nausea or vomiting, chestpain, or any unexpected problems, contact your Primary Care Provider. Call [facility] ([phone]) or report to the closest Emergency Room. Call 911 if necessary. 06/28/25 0018 <Electronically signed by Bruce Santamaria DO> Cosigner Signature (if applicable): CC: Dr. Emigdio Prince MD ~ Signed [facility] Work Phone: 1(709) 669-199310-20-2025 NoteHNO ID: [id number] Author: EMIGDIO PRINCE MD Service: ? Author Type: Physician Type: Progress Notes Filed: 06/25/2025 14:57 Note Text: Chief Complaint Patient presents with: Derm Problem: Cyst to tailbone, noticed a few days ago, getting bigger and more painful HPI Ricky Mercer is a 30 year old male who presents here today for cyst. Pt c/o possible cyst to tailbone that he noticed a few days ago. No precipitating cause. It is getting bigger and more painful. No drainage. No fever/chills. No prior issues. Sitting or laying down makes pain worse. Has been taking Tylenol. Past medical history, appointments, medications, allergies reviewed. Previous Medical History PAST MEDICAL HISTORY Diagnosis Date Asthma (HCC) Generalized anxiety disorder Previous Surgical History PAST [...] on File Prior to Visit Medication Sig ondansetron orally disintegrating (ZOFRAN ODT) 4 mg disintegrating tablet Take 1 tablet by mouth every 8 hours as needed for nausea/vomiting. benzonatate (TESSALON PERLE) 100 mg capsule Take 1 capsule by mouth three times a day as needed for cough for up to 12 doses. (Patient not taking: Reported on 05/07/2025) aluminum chloride (DRYSOL) 20 % external solution Apply to affected area daily at bedtime. As needed citalopram hydrobromide (CELEXA) 10 mg tablet Take 1 tablet by mouth once daily. No current facility-administered medications on file prior to visit. Social History SOCIAL HISTORY[1] EXAM: BP 122/76 Pulse 80 Resp 18 Wt 121 kg (266 lb 12.1 oz) BMI 36.18 kg/m? General Appearance: Well appearing, alert, in no acute distress, well-hydrated, well nourished.. Skin: Left pilonidal area inflamed, erythematous, swollen; no draiange. Health Maintenance List Covid-19 Vaccine( season) due on 05/07/2025 Depression Screening due on 07/06/2025 Hepatitis C Screening due on 07/06/2025 HIV Screening due on 07/06/2025 Influenza Vaccine(1) due on 03/05/2026 DTaP,Tdap,Td Vaccine(8 - Td or Tdap) due on 03/28/2031 Hepatitis B Vaccine Completed HPV Vaccine Addressed Data reviewed none ASSESSMENT/PLAN: 1. Pilonidal cyst - ICD9: 685.1, ICD10: L05.91 - CONSULT TO GENERAL SURGERY - CEPHALEXIN 500 MG CAPSULE Follow up prn I agree with the Chief Complaint, ROS, and Past Histories independently gathered by the clinical collection support specialist and the remaining scribed note accurately describes my personal service to the patient. Medical Decision Making: Problems: Low: Acute, uncomplicated illness or injury Risk: Moderate: Drug management Medical Decision Making Level: 3 - Low Emigdio Prince MD The documentation for this note was completed by Cherie Escamilla MA acting as scribe for Emigdio Prince MD. June 25, 2025 2:14 PM. Cherie Escamilla MA [1] Social History Tobacco Use Smoking status: Never Smokeless tobacco: Never Vaping Use Vaping status: Never Used Substance Use Topics Alcohol use: No Drug use: [facility]10-16-2025 NoteHNO ID: [id number] Author: MARILU PETERSON PA-C Service: ? Author Type: Physician Shipping And Receiving Specialist Type: Progress Notes Filed: 06/21/2025 09:18 Note Text: Chief Complaint Patient presents with: Follow Up: Was seen in [facility] for blood in urine HPI Ricky Mercer is a 30 year old male who presents here today for Above Complaints.. Ricky is a 30-year-old male presenting for follow-up after being seen at [facility] for dysuria. Dysuria: - Seen at [facility] for dysuria; urine culture was negative, but urine dipstick showed hemoglobin. - Completed antibiotic course yesterday. - Symptoms resolved 2-3 days ago. - Initially experienced constant pain, not limited to micturition. - Persistent urgency without actual need to void for several days. - Denies hematuria, discharge, or flank pain. - Mild lower abdominal pain during the first 1-2 days. - denies concerns for STI. Past medical history, appointments, medications, allergies reviewed. Previous Medical History PAST MEDICAL HISTORY Diagnosis Date Asthma (HCC) Generalized anxiety disorder Previous Surgical History PAST [...] on File Prior to Visit Medication Sig ondansetron orally disintegrating (ZOFRAN ODT) 4 mg disintegrating tablet Take 1 tablet by mouth every 8 hours as needed for nausea/vomiting. aluminum chloride (DRYSOL) 20 % external solution Apply to affected area daily at bedtime. As needed citalopram hydrobromide (CELEXA) 10 mg tablet Take 1 tablet by mouth once daily. sulfamethoxazole-trimethoprim (BACTRIM DS) 800-160 mg per tablet Take 1 tablet by mouth two times a day for 7 days. (Patient not taking: Reported on 06/21/2025) benzonatate (TESSALON PERLE) 100 mg capsule Take 1 capsule by mouth three times a day as needed for cough for up to 12 doses. (Patient not taking: Reported on 05/07/2025) No current facility-administered medications on file prior to visit. Social History SOCIAL HISTORY[1] Review of Symptoms REVIEW OF SYSTEMS Genitourinary: (-) dysuria, (-) hematuria, (-) flank pain SEE HPI EXAM: BP 130/82 (BP Site: Left Arm, BP Position: Sitting, BP Cuff Size: Large Adult) Pulse 88 Temp 36.4 ?C (97.6 ?F) Resp 18 Wt 120.2 kg (265 lb) SpO2 96% BMI 35.94 kg/m? General Appearance: Well appearing, alert, in no acute distress, well-hydrated, well nourished.. Lungs: Lungs clear to auscultation. No wheezing, rhonchi, rales.. Heart: RRR without murmur, gallop, or rubs. No ectopy. Abdomen: Normal abdominal exam, Abdomen soft, non-tender. Bowel sounds normal. No masses, organomegaly. Health Maintenance List Covid-19 Vaccine( season) due on 05/07/2025 Depression Screening due on 07/06/2025 Hepatitis C Screening due on 07/06/2025 HIV Screening due on 07/06/2025 Influenza Vaccine(1) due on 03/05/2026 DTaP,Tdap,Td Vaccine(8 - Td or Tdap) due on 03/28/2031 Hepatitis B Vaccine Completed HPV Vaccine Addressed Data reviewed Latest Ref Rng 06/14/2025 GLUCOSE UA (POCT) Negative mg/dL Negative BILIRUBIN UA (POCT) Negative Negative KETONE UA (POCT) Negative mg/dL Negative SPECIFIC GRAVITY UA (POCT) 1.005 - 1.030 1.020 HEMOGLOBIN/BLOOD UA (POCT) Negative Small ! PH UA (POCT) 4.5 - 8.0 6.0 PROTEIN UA (POCT) Negative mg/dL Negative UROBILINOGEN UA (POCT) Normal E.U./dL 0.2 NITRITE UA (POCT) Negative Negative LEUKOCYTES UA (POCT) Negative Negative COLOR UA (POCT) Yellow CLARITY UA (POCT) Clear Culture No growth (<1,000 CFU/ml) Assessment and Plan 1. Dysuria (R30.0) 2. Microscopic hematuria (R31.29) - Recent episode of dysuria with constant lower abdominal pain and urinary urgency; urinalysis showed hemoglobin, but urine culture was negative. - Completed antibiotic course with resolution of symptoms for the past 2-3 days. - Order repeat urinalysis with microscopy early next week to confirm resolution of hematuria. - If urinalysis is clear and no symptoms recur, no further workup needed. Marilu Peterson PA-C Recording using [employer] software for draft documentation of the visit was discussed with the patient/authorized promotional representative; all questions welcomed and answered. Patient/authorized promotional representative agreed to proceed [1] Social History Tobacco Use Smoking status: Never Smokeless tobacco: Never Vaping Use Vaping status: Never Used Substance Use Topics Alcohol use: No Drug use: [facility]10-09-2025 NoteHNO ID: [id number] Author: PRUDENCIO MONCADA APRN.[facility] Service: ? Author Type: Nurse Practitioner Type: Progress Notes Filed: 06/14/2025 14:54 Note Text: [facility] Subjective HPI HPI Ricky Mustapha Mercer is a 30 year old male who presents today for CC of urinary frequency, burning. This started today. Has tried nothing for relief. Symptoms are worsened by nothing. Denies hx of uti in past. Denies std concerns. Possible hx of renal stones 10 years ago, no formal dx. Denies back pain. Denies testicular pain. .Patient presents with: UTI: Burning, bladder pressure x this AM PAST MEDICAL HISTORY Diagnosis Date Asthma (HCC) Generalized anxiety disorder PAST SURGICAL HISTORY Procedure Laterality Date LIPOMA (SMALL) 12/10/2023 left side of head PAST SURGICAL HISTORY OF Right 2012, 2015 Right knee surgery ALLERGIES Patient has no known allergies. MEDICATIONS ondansetron orally disintegrating (ZOFRAN ODT) 4 mg disintegrating tablet Take 1 tablet by mouth every 8 hours as needed for nausea/vomiting. aluminum chloride (DRYSOL) 20 % external solution Apply to affected area daily at bedtime. As needed citalopram hydrobromide (CELEXA) 10 mg tablet Take 1 tablet by mouth once daily. benzonatate (TESSALON PERLE) 100 mg capsule Take 1 capsule by mouth three times a day as needed for cough for up to 12 doses. (Patient not taking: Reported on 05/07/2025) FAMILY HISTORY Problem Relation Age of Onset other (Anxiety) Mother other (Anxiety) Sister other (Anxiety) Brother Heart Maternal Grandmother Diabetes Maternal Grandfather SOCIAL HISTORY[1] Review of Systems Constitutional: Negative for fever. Cardiovascular: Negative for chest pain. Gastrointestinal: Negative for abdominal pain, constipation, diarrhea, nausea and vomiting. Genitourinary: Positive for dysuria, frequency and urgency. Negative for flank pain. Musculoskeletal: Negative for back pain. Objective BP 139/88 Pulse 73 Temp 36.6 ?C (97.8 ?F) Resp 18 Wt 120.7 kg (266 lb 1.5 oz) SpO2 98% BMI 36.09 kg/m? Physical Exam Constitutional: General: He is not in acute distress. Appearance: Normal appearance. He is not toxic-appearing. Cardiovascular: Rate and Rhythm: Normal rate and regular rhythm. Heart sounds: Normal heart sounds. Pulmonary: Effort: Pulmonary effort is normal. Breath sounds: Normal breath sounds. Abdominal: General: Bowel sounds are normal. Palpations: Abdomen is soft. Tenderness: There is no abdominal tenderness. There is no right CVA tenderness or left CVA tenderness. Skin: General: Skin is warm and dry. {ASSESSMENT/PLAN: 1. Burning with urination - ICD9: 788.1, ICD10: R30.0 acute - UA positive for hematuria - Send urine for culture - Begin treatment with Bactrim DS BID for 7 days - UA DIP, URINE (POC) - BACTERIAL CULTURE, URINE - SULFAMETHOXAZOLE 800 MG-TRIMETHOPRIM 160 MG TABLET Prudencio Moncada APRN.RAILROAD PURCHASING AGENT History and Record Review External record(s) reviewed: prior outpatient record. Disposition The patient was discharged. Procedures [1] Social History Tobacco Use Smoking status: Never Smokeless tobacco: Never Vaping Use Vaping status: Never Used Substance Use Topics Alcohol use: No [id number] NoteHNO ID: [id number] Author: PRUDENCIO MONCADA APRN.RAILRO[employer] PURCHASING AGENT Service: ? Author Type: Nurse Practitioner Type: Progress Notes Filed: 05/07/2025 10:00 Note Text: [facility] Subjective HPI HPI Ricky Mercer is a 30 year old male who presents today for CC of nausea, vomiting, diarrhea. This started 3 days ago. Has tried otc medication for relief. Symptoms are worsened by nothing. Risk factors last void few this AM. Tolerating fluids well. .Patient presents with: Nausea AND Vomiting: Diarrhea, loss of appetite x 3 days PAST MEDICAL HISTORY Diagnosis Date Asthma (HCC) Generalized anxiety disorder PAST SURGICAL HISTORY Procedure Laterality Date LIPOMA (SMALL) 12/10/2023 left side of head PAST SURGICAL HISTORY OF Right 2012, 2014 Right knee surgery ALLERGIES Patient has no known allergies. MEDICATIONS aluminum chloride (DRYSOL) 20 % external solution Apply to affected area daily at bedtime. As needed citalopram hydrobromide (CELEXA) 10 mg tablet Take 1 tablet by mouth once daily. benzonatate (TESSALON PERLE) 100 mg capsule Take 1 capsule by mouth three times a day as needed for cough for up to 12 doses. (Patient not taking: Reported on 05/07/2025) FAMILY HISTORY Problem Relation Age of Onset other (Anxiety) Mother other (Anxiety) Sister other (Anxiety) Brother Heart Maternal Grandmother Diabetes Maternal Grandfather SOCIAL HISTORY[1] Review of Systems Constitutional: Positive for fatigue. Negative for fever. Gastrointestinal: Positive for diarrhea, nausea and vomiting. Negative for abdominal pain, blood in stool and constipation. Objective BP 118/82 Pulse 82 Temp 36.8 ?C (98.2 ?F) Resp 18 Wt 117.6 kg (259 lb 4.2 oz) SpO2 97% BMI 35.16 kg/m? Physical Exam Constitutional: General: He is not in acute distress. Appearance: Normal appearance. He is not toxic-appearing. Cardiovascular: Rate and Rhythm: Normal rate and regular rhythm. Heart sounds: Normal heart sounds. Pulmonary: Effort: Pulmonary effort is normal. Breath sounds: Normal breath sounds. Abdominal: General: Bowel sounds are normal. Palpations: Abdomen is soft. Tenderness: There is no abdominal tenderness. There is no right CVA tenderness or left CVA tenderness. Skin: General: Skin is warm and dry. {ASSESSMENT/PLAN: 1. Nausea - ICD9: 787.02, ICD10: R11.0 Possibly norovirus -Discussed gentle rehydration -BRAT Diet (Bananas, Rice, Apple Sauce, Andale) -If no better in 3-5 days follow up back in clinic or with primary care provider -Follow up in the ER with signs of dehydration, increasing abdominal pain, high fever, or blood in vomit or stool. - ONDANSETRON 4 MG DISINTEGRATING TABLET Prudencio Moncada APRN.CNP History and Record Review External record(s) reviewed: prior outpatient record. Disposition The patient was discharged. Procedures [1] Social History Tobacco Use Smoking status: Never Smokeless tobacco: Never Vaping Use Vaping status: Never Used Substance Use Topics Alcohol use: No Drug use: [facility]09-01-2025 History of Present illness Narrative* Prudencio Moncada APRN.CNP - 05/07/2025 9:02 AM EDT [facility] Subjective HPI HPI Ricky Mercer is a 30 year old male who presents today for CC of nausea, vomiting, diarrhea. This started 3 days ago. Has tried otc medication for relief. Symptoms are worsened by nothing. Risk factors last void few this AM. Tolerating fluids well. .Patient presents with: Nausea & Vomiting: Diarrhea, loss of appetite x 3 days PAST MEDICAL HISTORY Diagnosis Date Asthma (HCC) Generalized anxiety disorder PAST SURGICAL HISTORY Procedure Laterality Date LIPOMA (SMALL) 12/10/2023 left side of head PAST SURGICAL HISTORY OF Right 2012, 2014 Right knee surgery ALLERGIES Patient has no known allergies. MEDICATIONS aluminum chloride (DRYSOL) 20 % external solution Apply to affected area daily at bedtime. As needed citalopram hydrobromide (CELEXA) 10 mg tablet Take 1 tablet by mouth once daily. benzonatate (TESSALON PERLE) 100 mg capsule Take 1 capsule by mouth three times a day as needed forcough for up to 12 doses. (Patient not taking: Reported on 05/07/2025) FAMILY HISTORY Problem Relation Age of Onset other (Anxiety) Mother other (Anxiety) Sister other (Anxiety) Brother Heart Maternal Grandmother Diabetes Maternal Grandfather SOCIAL HISTORY[1] Review of Systems Constitutional: Positive for fatigue. Negative for fever. Gastrointestinal: Positive for diarrhea, nausea and vomiting. Negative for abdominal pain, blood instool and constipation. Objective BP 118/82 Pulse 82 Temp 36.8 C (98.2 F) Resp 18 Wt 117.6 kg (259 lb 4.2 oz) SpO2 97% BMI 35.16 kg/m Physical Exam Constitutional: General: He is not in acute distress. Appearance: Normal appearance. He is not toxic-appearing. Cardiovascular: Rate and Rhythm: Normal rate and regular rhythm. Heart sounds: Normal heart sounds. Pulmonary: Effort: Pulmonary effort is normal. Breath sounds: Normal breath sounds. Abdominal: General: Bowel sounds are normal. Palpations: Abdomen is soft. Tenderness: There is no abdominal tenderness. There is no right CVA tenderness or left CVA tenderness. Skin: General: Skin is warm and dry. {ASSESSMENT/PLAN: 1. Nausea - ICD9: 787.02, ICD10: R11.0 Possibly norovirus -Discussed gentle rehydration -BRAT Diet (Bananas, Rice, Apple Sauce, Andale) -If no better in 3-5 days follow up back in clinic or with primary care provider -Follow up in the ER with signs of dehydration, increasing abdominal pain, high fever, or blood in vomit or stool. - ONDANSETRON 4 MG DISINTEGRATING TABLET Prudencio Moncada APRN.CNP History and Record Review External record(s) reviewed: prior outpatient record. Disposition The patient was discharged. Procedures [1] Social History Tobacco Use Smoking status: Never Smokeless tobacco: Never Vaping Use Vaping status: Never Used Substance Use Topics Alcohol use: No Drug use: No [facility]25 NoteHNO ID: [id number] Author: JOYCE CHAO APRN.CNP Service: ? Author Type: Nurse Practitioner Type: Progress Notes Filed: 12/10/2024 09:45 Note Text: This note was created using ipnexusriter. Subjective Ricky Mercer is a 29 year [...] - BENZONATATE 100 MG CAPSULE Joyce Chao [facility]N.[facility] History of Present illness Narrative* Joyce Chao APRN.RAILROAD PURCHASING AGENT - 12/10/2024 9:28 AM EDT This note was created using NoteWriter. Subjective [...] - BENZONATATE 100 MG CAPSULE Joyce Chao APRN.RAILROAD PURCHASING AGENT documented in this encounterS[facility]03-05-2025 NoteHNO ID: [id number] Author: PRUDENCIO MONCADA APRN.CNP Service: ? Author [...] of head PAST SURGICAL HISTORY OF Right 2013, 2015 Right knee surgery ALLERGIES Patient has [...] A/B AND RSV PCR, ROUTINE Prudencio Moncada APRN.[facility]03-05-2025 History of Present illness Narrative* Prudencio Moncada APRN.RAILROAD PURCHASING AGENT - 11/08/2024 7:56 AM EST Subjective HPI HPI Ricky Mercer is a [...] of head PAST SURGICAL HISTORY OF Right 2013, 2015 Right knee surgery ALLERGIES Patient has [...] A/B & RSV PCR, ROUTINE Prudencio Moncada APRN.RAILROAD PURCHASING AGENT documented in this encounterScci Hospital [facility]03-05-2025 [id number] (AGENT OF COVID-19) RNA: Not detected INFLUENZA A RNA: Not detected INFLUENZA B RNA: Not detected RESPIRATORY SYNCYTIAL VIRUS (RSV) RNA: Not detectedUniversity Hospitals Health SystemComment on above:Performed By: #### [id number] ####[facility] LABCLIA [id number] [address] OF [id number] Instructions* Patient Instructions* Charu Chang MA - 09/04/2024 5:42 PM EST Update office via Jogg if not improving. documented in this encounterS[facility] Hospital [facility]12-30-2024 History of Present illness Narrative* Emigdio Prince MD - 09/04/2024 5:40 PM EST Chief Complaint Patient presents with: Cough HPI [...] in no acute distress, well-hydrated, well nourished. andObese. Oropharynx: Lips, mucosa, and tongue normal, teeth [...] Past Histories independently gathered by the clinical collection support specialist and the remaining scribed note accurately describes [...] PM. Charu Chang MA documented in this encounterScci Hospital [facility]12-30-2024 NoteHNO ID: [id number] Author: EMIGDIO PRINCE MD Service: ? Author [...] Past Histories independently gathered by the clinical collection support specialist and the remaining scribed note accurately describes my personal service to the patient. Medical Decision Making: Problems: Low: Acute, uncomplicated illness or injury Risk: Moderate: Drug management Medical Decision Making Level: 3 - Low Emigdio Prince MD The documentation for this note was completed by Charu Chang MA acting as scribe for Emigdio Prince MD. September 04, 2024 5:41 PM. Charu Chang [facility]10-31-2024 History of Present illness Narrative* Emigdio Prince MD - 07/06/2024 3:00 PM EDT Chief Complaint Patient presents with: Physical HPI Ricky Mercer is a 29 year old male who presents here today for physical. 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 Has one daughter that is 16 months [...] or wrist. Pain is dull ache when notusing and then sharp shooting with use. He [...] of head PAST SURGICAL HISTORY OF Right 2013, 2014 Right knee surgery Family History FAMILY [...] in no acute distress, well-hydrated, well nourished. andOverweight. Lungs: Lungs clear to auscultation. No wheezing, [...] Past Histories independently gathered by the clinical collection support specialist and the remaining scribed note accurately describes my personal service to the patient. Emigdio Prince MD The documentation for this note was completed by Cherie Escamilla MA acting as scribe for Emigdio Prince MD. July 06, 2024 3:02 PM. Cherie Escamilla MA documented in this encounterScci Hospital [facility]10-29-2024 Telephone encounter Note * Telephone Encounter - Angel Grubbs APRN.CNP - 07/04/2024 8:58 AM EDT The following approved medication requests have been transmitted electronically. Requested Prescriptions Pending Prescriptions Disp Refills aluminum chloride (DRYSOL) 20 % external solution 35 mL 0 Sig: Apply to affected area daily at bedtime. As needed Angel Grubbs APRN.CNP [facility]10-29-2024 Miscellaneous Notes* Telephone Encounter - Angel Grubbs APRN.CNP - 07/04/2024 8:58 AM EDT The following approved medication requests have been transmitted electronically. Requested Prescriptions Pending Prescriptions Disp Refills aluminum chloride (DRYSOL) 20 % external solution 35 mL 0 Sig: Apply to affected area daily at bedtime. As needed Angel Grubbs APRN.CNP * Telephone Encounter - Stefania Campos LPN - 07/03/2024 2:58 PM EDT Prescription Refill Information The patient has been [...] 03, 2024 2:59 PM documented in this encounterScci Hospital [facility]10-28-2024 Telephone encounter Note * Telephone Encounter - Cherie Escamilla MA - 07/03/2024 2:58 PM EDT Prescription Refill Information The patient has been [...] Escamilla MA July 03, 2024 2:58 PM [facility]10-28-[facility] Telephone encounter Note* Telephone Encounter - Stefania Campos LPN - 07/03/2024 2:58 PM EDT Prescription Refill Information The patient has been [...] Campos LPN July 03, 2024 2:59 PM [facility]10-28-2024 Miscellaneous Notes* Telephone Encounter - Cherie Escamilla MA - 07/03/2024 2:58 PM EDT Prescription Refill Information The patient has been [...] 03, 2024 2:58 PM documented in this encounterScci Hospital [facility]05-09-2024 Instructions* Patient Instructions* Kay Davenport APRN.RAILRO[employer] PURCHASING AGENT - 01/13/2024 8:06 AM EDT ASSESSMENT/PLAN: 1. [...] Discussed expected course of illness Kay Davenport APRN.[facility] PATIENT INFO POISON VERONICA INTRODUCTION [...] in people who have had mild reactions inthe past. People in occupations such as firefighting, forestry, and farming are at a higher risk ofpoison veronica dermatitis because of repeated exposure to [...] plants grow in many areas across the [facility] and throughout the world. East of the [facility], poison veronica commonly grows as a climbing vine. In the [place] area and west, poison veronica tends to grow low to the ground as a shrub. Poison oak most often grows west of the [facility], and poison sumac inhabits boggy areas in the southeastern part of the [facility]. The plants are not usually found [...] four days after exposure to the urushiol. Afterthe initial symptoms, you will develop fluid-filled blisters in a line or streak-like pattern. The symptoms are worst within 1 to 14 days after touching the plant, but can develop up to 21 days laterif you have never been exposed to urushiol [...] be passed from person to person. However, urushiolcan be carried under fingernails and on clothes; if another person comes in contact with the urushiol, they can develop poison veronica dermatitis. POISON VERONICA DIAGNOSIS Poison veronica is usually diagnosed based upon how your skin looks. Further testing is not usually necessary. POISON VERONICA TREATMENT Poison veronica dermatitis usually resolves within one to three weeks without treatment. Treatments thatmay help relieve the itching, soreness, and discomfort [...] pants when working in areas where toxic plantsmay be found. Keep in mind that the resin and oils from the toxic plants can be carried on clothing, pets, and under fingernails. Wear heavy-duty vinyl gloves when doing yard work or gardening. The oils from toxic plants can seepthrough latex or rubber gloves. After coming in [...] Bentoquatam (Veronica Block ) is one type ofbarrier cream that may prevent poison veronica dermatitis. It must be reapplied every four hours and it leaves a nathaniel residue on the skin. Avoid burning poisonous vegetation, which can disperse the plant particles in the smoke, irritate the skin, and cause poison veronica dermatitis. documented in this encounterScci Hospital [facility]05-09-2024 History of Present illness Narrative* Kay Davenport APRN.JOSUE - 01/13/2024 8:01 AM EDT Images from the original note were not [...] kg (268 lb 15.4 oz) SpO2 97% BMI38.59 kg/m PAST MEDICAL HISTORY Diagnosis Date Asthma [...] Discussed expected course of illness Kay Davenport APRN.RAILROAD PURCHASING AGENT documented in this encounterScci Hospital [facility]04-29-2024 History of Present illness Narrative* Mindy Jones MD - 01/03/2024 2:35 PM EDT FOLLOW UP VISIT NAME: Ricky Luciano Ruslan [facility] NO.: [id number] DATE OF SERVICE: 01/03/2024 : 1995 REFERRING PHYSICIAN: MD Ricky Hearn is status post excision of posterior left [...] others. Mindy Jones MD documented in this encounterScci Hospital [facility]04-05-2024 Nurse Note* Rakel Lancaster RN - 12/10/2023 12:09 PM EDT Pt arrived to phase 2. Awake, denies pain/ nausea. Snack and drink offered and taken. SR up x 2, call light in reach. Rakel Lancaster RN * Maday Arguello RN - 12/10/2023 11:38 AM EDTSummary: Equipment details for [employer]le[employer] ForceFX Valleyl[employer] ForceFX used during procedure Settings: Cut 30, COAG 30 Electrode patient pad placed on right, lateral thigh. PAD lot #: [id number] Expiration Date: 05/06/2025 Pad placed by: RICH Negro Settings/equipment was not found under appropriate section in intra-op tab. RICH Negro documented in this encounterScci Hospital [facility]04-05-2024 Surgical operation note* Brief Op Note - Mindy Jones MD - 12/10/2023 12:05 PM EDT BRIEF OPERATIVE NOTE SURGERY DATE: 12/10/2023 Incision/Procedure Start Time: 11:31 Incision Close/Procedure End Time: 12:03 Surgeon(s)/Proceduralist(s) and Shipping And Receiving Specialist(s): Robert Procedures: Excision of mass of left posterior ear Anesthesia: Local - 1% xylocaine with epinephrine Findings: lipomatous mass of left posterior ear Estimated Blood Loss: minimal Specimens: left posterior ear mass Complications: None Closure Technique: Primary Preop Diagnosis: mass posterior left ear Postop Diagnosis: same SIGNATURE: Mindy Jones MD PATIENT NAME: Ricky Mercer DATE: December 10, 2023 TIME: 12:05 PM Acct: [id number] documented in this encounterS[facility] History and physical note * Mindy Jones MD - 12/10/2023 10:50 AM EDT UPDATED HISTORY AND PHYSICAL EXAMINATION SERVICE DATE: 12/10/2023 SERVICE TIME: 10:50 PHYSICAL EXAM MUST BE COMPLETED ON ADMISSION The History and Physical (completed in the past 30 days) has been reviewed and the patient has beenexamined. The contents accurately reflect the patient's condition with the following additions or revisions since the H&P was completed. Examination indicates no changes. This H&P can be found in the Electronic Medical Record. SIGNATURE: Mindy Jones MD PATIENT NAME: Ricky Farnsworthmehreen DATE: December 10, 2023 TIME: 10:50 AM Source Note - Mindy Jones MD - 12/09/2023 5:05 PM EDT HISTORY AND PHYSICAL Ricky Luciano Ruslan 1995 REFERRING PHYSICIAN: Emigdio Prince MD CHIEF [...] To be done using local anesthesia at [facility] I have counseled the patient as to [...] and the patient has no further questions. * Mindy Jones MD - 12/09/2023 5:05 PM [...] To be done using local anesthesia at [facility] I have counseled the patient as to [...] has no further questions. documented in this encounterS[facility]03-04-2024 Telephone encounter Note * Telephone Encounter - Caitlyn Oneill - 11/08/2023 9:26 AM EST 12/20/2023 [facility] Miscellaneous Notes* Telephone Encounter - Caitlyn Oneill - 11/08/2023 9:26 AM EST 12/20/2023 EXC [facility] documented in this encounterScci Hospital [facility]03-01-2024 Instructions* Patient Instructions* Mindy Jones MD - 11/05/2023 3:10 PM EST No solid food 6 hours prior to procedure Only sips of water up until 2 hours prior to procedure You do not require a pizza delivery driver for this procedure Tentative date: December 10, 2023 Arrival time: (tentative) 11:00 documented in this encounterS[facility] Hospital [facility]03-01-2024 History of Present illness Narrative* Mindy Jones MD - 11/05/2023 3:07 PM EST HISTORY AND PHYSICAL Ricky Mercer 1995 REFERRING [...] OF Right 2012, 2014 Right knee surgery Current Outpatient Medications Medication [...] entered by the nurse and reviewed by ga Nursing Notes: Logan Washington INTEGRATION LEAD 11/05/2023 3:04 PM Signed REVIEW OF SYSTEMS: [...] To be done using local anesthesia at [facility] I have counseled the patient as to [...] of any pertinent laboratory studies/radiological imaging/medical records, astv-th-fhujdqlqkws care, obtaining oral medical history from the patient in this encounter, performing a medically appropriate examination, counseling and educating the patient/family/caregiver, and ordering and/or scheduling of medications/tests/procedures, and completing appropriate medical documentation. Mindy Jones MD documented in this encounterScci Hospital [facility]03-01-2024 Nurse Note* Logan Washington, INTEGRATION LEAD - 11/05/2023 3:01 PM EST REVIEW OF SYSTEMS: General: The patient denies [...] none Logan Washington LPN documented in this encounterScci Hospital [facility]02-15-2024 Miscellaneous Notes* Telephone Encounter - Cherie Escamilla Ma - 10/21/2023 9:58 AM EST Pt notified via Jogg. Advised to call in and schedule. Cherie Ecsamilla Ma * Telephone Encounter - Emigdio Prince MD - 10/21/2023 9:35 AM EST OK to refer to Surg for evaluation of sebaceous cyst Emigdio Prince MD documented in this encounterScci Hospital [facility]ima02-15-2024 Miscellaneous Notes* Telephone Encounter - Cherie Escamilla Ma - 10/21/2023 7:59 AM EST See Jogg message. Cherie Escamilla Ma documented in this encounterScci Hospital [facility]ima11-26-2023 Instructions* Patient Instructions* Ani Gonzalez APRN.RAILROAD PURCHASING AGENT - 08/01/2023 11:53 AM EST Acute Sinusitis Each of us has four paired cavities (spaces) in our head that are connected to the nose by narrow channels. These cavities, known as sinuses, produce thin mucus that drains out of the channels of thenose. This drainage helps keep the nose clean [...] lining the sinuses. There are two types ofsinusitis: Acute bacterial sinusitis: a sudden onset of [...] who have the following conditions have a higherrisk of sinusitis: Nasal mucus membrane swelling, as [...] recommend treatment with decongestants like Sudafed and dcgm-lhp-jwxeybd medications for cold and allergy, nasal saline [...] prescribed to relieve symptoms. Use of prescription intranasalsteroid sprays might be added to help control symptoms. However, non-prescription drops or sprays should not be used beyond 5 days -- or they may actually increase congestion. Chronic sinusitis. Treating chronic sinusitis begins with controlling the underlying condition, which is most often allergies. Standard treatments include intranasal steroid sprays, topical antihistamine sprays, or antihistamine pills, and leukotriene antagonists such as montelukast. Often you willbe encouraged to rinse the nose with saline irrigations. Sometimes medications may be added to these irrigations. If sinusitis is not controlled, the next step is a CT scan of the sinuses. This allows for a directview of the nose and surrounding sinuses. Based [...] caused by a virus that infects the noseand throat. Most upper respiratory infections are not bacterial and do not respond to antibiotics. A cold may cause swelling in the sinuses, preventing the outflow of mucus. Cold symptoms include nasal congestion, runny nose, post-nasal drip (nvfs-hf-ceqb release of nasal fluid into the back [...] by primary care physicians. If, however, you arebothered by ongoing abnormal symptoms, recurring infections, or have abnormal X-ray findings or complications, a referral to a specialist is appropriate. References Priyanka Romero et al., IDSA Clinical Practice Guideline for Acute Bacterial Rhinosinusitis in Children and Adults. Clinical Infectious Diseases; 2012;54(8):7531-1455. Helder Posada, Sinusitis: Allergies, antibiotics, aspirin, asthma. [facility] Journal of Medicine 2006; 73(7): 671-678 National [place] of Allergy and Infectious Diseases. Sinusitis (Sinus Infection) Accessed 07/16/2015. [place] [employer] All[employer], Asthma, and Immunology. Sinusitis Accessed 07/16/2015. [employer], [employer]hma & Immunology. Sinus Information Accessed 07/16/2015. Monserrat Mendoza., Prevalence of migraine in patients with a history of self- reported or physician-diagnosed sinus headache. Arch Health Officer Med, 2004. 164(16):1769-72. Copyright 0305-2096 The [employer]. All rights reserved. NASAL SALINE IRRIGATION Sinus [...] provider with any problems. documented in this encounterScci Hospital [facility]ima11-26-2023 History of Present illness Narrative* Ani Gonzalez APRN.JOSUE - 08/01/2023 11:50 AM EST This note was created using NoteWriter. Subjective Ricky Mercer is a 28 year old male.Patient reports 1 week history of nasal congestion, cough,, sore throat, and cough. Patient reports it started to improve 2 days ago but then got worse. Objective BP 132/83 Pulse 89 Temp 36.7 C (98.1 F) Resp 18 Wt 118.4 kg (261 lb) SpO2 96% BMI 36.40kg/m Physical Exam PHYSICAL EXAMINATION: General appearance: Well [...] - AMOXICILLIN 875 MG TABLET Ani Gonzalez APRN.RAILROAD PURCHASING AGENT documented in this encounterScci Hospital [facility]ima09-29-2023 History of Present illness Narrative* Angel Grubbs APRN.RAILROAD PURCHASING AGENT - 06/04/2023 11:07 AM EDT Chief Complaint Patient presents with: jock itch: [...] TERBINAFINE HCL 250 MG TABLET Angel Grubbs APRN.RAILROAD PURCHASING AGENT This note was partly generated using [employer] voice recognition dictation and may contain some misspelled or inaccurate words missed on review. documented in this encounterScci Hospital [facility]ima2023 History of Present illness Narrative* Emigdio Prince MD - 12/15/2022 3:40 PM EDT Chief Complaint Patient presents with: Rectal Problem [...] Past Histories independently gathered by the clinical collection support specialist and the remaining scribed note accurately describes [...] PM. Charu Chang Ma documented in this encounterScci Hospital [facility]02-13-2023 History of Present illness Narrative* Anita Rivas LPN - 10/19/2022 1:37 PM EST Patient presents for HPV vaccine. Denies any problems at this time. Tolerated injection well. Anita Rivas LPN documented in this encounterScci Hospital [facility]ima09-21-2022 History of Present illness Narrative* Emigdio Prince MD - 05/27/2022 6:00 PM EDT Chief Complaint Patient presents with: Physical HPI Ricky Mercer is a 27 year old male who presents here today for physical. Pt here today for a Wellness Exam. Pt last seen over a year ago. Working at [employer], finishing his Bachelors Degree at [employer]. Denies any stomach, bowel or urinary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
== END 2025-07-24 20:47 | disposition left against medical advice (07) ==
LOC: ED 20:56
PROVIDERS: PCP Family Medicine
DX: Z53.21 Procedure and treatment not carried out due to patient leaving prior to being seen by health care provider (principal)